=== PATIENT | male | born 1950 | race Caucasian/White ===

== ENCOUNTER → 2018-02-20 | Outpatient (CLI) | payer BC ==
[~2018-02-20] MED LIST: ACHD5005 PO; ATR20T PO; BNZ20T PO; OXYC-471 PO; SILV25CR TOP
--- NOTE | 2018-02-20 08:02 | Diagnostic Imaging Report ---
INDICATION: Hemoptysis. FINDINGS: Overall heart size and pulmonary vascularity are within normal limits. There is mild diffuse airspace disease in the right lung with a lower lobe predominance. Left lung appears generally clear. There is no evidence of pneumothorax or significant pleural fluid. IMPRESSION: Increased density in the right lung is likely due to edema or pneumonitis. No lobar consolidation is identified. Followup study would be of use. Dictated by: Dictated on workstation # [id number]
== END ==
LOC: RAD 07:33
PROVIDERS: ATTEND Otolaryngology Otolaryngology/Facial Plastic Surgery
DX: R91.8 Other nonspecific abnormal finding of lung field (principal); R04.2 Hemoptysis
CPT/HCPCS: 71045

== ENCOUNTER → 2018-02-25 | Outpatient (CLI) | payer BC ==
[~2018-02-25] MED LIST changes: +IOHEXOL 350 MG/ML 100 ML (OMNIPAQUE 350) VIAL IV ONE; +NS 250 ML (IVPB) BAG IV ONE
[2018-02-25 08:04] LABS: CREATININE SERUM 1.2 MG/DL (0.60-1.30)
--- NOTE | 2018-02-25 12:39 | Diagnostic Imaging Report ---
PROCEDURE: CT chest with contrast only. TECHNIQUE: Multiple contiguous axial images were obtained through the chest after administration of intravenous contrast. INDICATION: Hemoptysis. FINDINGS: There are no previous CT chest examinations available for comparison. The plain film examination of the chest performed on 02/20/2018 suggested pneumonia involving the right midlung. On this exam, there is a generalized prominence of the interstitial densities along the periphery of the right midlung and right lung base. This appearance is somewhat atypical for pneumonia. The possibility that this is secondary to pneumonia cannot be entirely excluded. This could also be related to chronic pulmonary disease. It may prove worthwhile to have are short-term (4-6 week) followup CT chest exam for continued evaluation. There are also a few small patchy areas of increased density about the left hilum and in the left lower lobe. Whether these findings are chronic or acute is not certain. The heart itself is within normal limits. Coronary artery calcifications are evident. The aorta is not abnormally dilated and there is no sign of dissection. There is no defect within the pulmonary arteries to indicate a pulmonary embolus. There is a small 1.0 x 1.8 cm low-density nodule in the left hilum. This is probably a borderline enlarged lymph node. There is a similar-appearing similar-sized node in the right hilum. There is no mediastinal adenopathy identified. The thyroid gland where visualized is unremarkable. The sections through the upper abdomen fail to show any sign of an acute abnormality. The bone windows are unremarkable for fracture or for destructive lesion. IMPRESSION: 1. There is a generalized prominence of the interstitial densities along the periphery of the right midlung and right lung base. This finding is somewhat atypical for pneumonia but that possibly should still be considered. This appearance could also be related to chronic pulmonary disease. A 4-[address] chest exam would be recommended for further study. 2. There is no acute cardiopulmonary abnormality noted, otherwise. In particular, there is no sign of a dissection of the aorta or of a pulmonary embolus. There is no lung mass identified either. 3. The small hilar nodes are nonspecific. These may represent reactive nodes. 4. The heart is not enlarged but there is coronary artery disease. Dictated by: Dictated on workstation # [id number]
== END ==
LOC: RAD 07:25
PROVIDERS: ATTEND Otolaryngology Otolaryngology/Facial Plastic Surgery
DX: R91.1 Solitary pulmonary nodule (principal); I25.10 Atherosclerotic heart disease of native coronary artery without angina pectoris
CPT/HCPCS: 36415; 71260; 82565; 84520

== ENCOUNTER → 2018-03-02 | Outpatient (CLI) | payer BC ==
[~2018-03-02] MED LIST changes: -IOHEXOL 350 MG/ML 100 ML (OMNIPAQUE 350) VIAL IV ONE; -NS 250 ML (IVPB) BAG IV ONE
[2018-03-02 12:16] LABS: BASOPHILS % (AUTO) 0 % (0-10); EOSINOPHILS # (AUTO) 0.1 10^3/uL (0.0-0.3); EOSINOPHILS % (AUTO) 1 % (0-10); HEMATOCRIT 46 % (40-54); HEMOGLOBIN 16.5 G/DL (13.3-17.7); LYMPHOCYTES # (AUTO) 1.8 X 10^3 (1.0-4.0); LYMPHOCYTES % (AUTO) 24 % (12-44); MEAN CORPUSCULAR HEMOGLOBIN 34 PG (25-34); MEAN CORPUSCULAR HGB CONC 36 G/DL (32-36); MEAN CORPUSCULAR VOLUME 93 FL (80-99); MEAN PLATELET VOLUME 9.1 FL (7.4-10.4); MONOCYTES # (AUTO) 0.9 X 10^3 (0.0-1.0); MONOCYTES % (AUTO) 12 % (0-12); NEUTROPHILS # (AUTO) 4.6 X 10^3 (1.8-7.8); NEUTROPHILS % (AUTO) 62 % (42-75); PLATELET COUNT 240 10^3/uL (130-400); RED BLOOD COUNT 4.93 10^6/uL (4.35-5.85); RED CELL DISTRIBUTION WIDTH 13.8 % (10.0-14.5); WHITE BLOOD COUNT 7.5 10^3/uL (4.3-11.0)
[2018-03-02 12:27] LABS: INR 1.1 (0.8-1.4); PROTHROMBIN TIME PATIENT 14.4 SEC (12.2-14.7)
== END ==
LOC: LAB 11:50
PROVIDERS: ATTEND Nurse Practitioner Family
DX: R04.2 Hemoptysis (principal); R06.00 Dyspnea, unspecified
CPT/HCPCS: 36415; 36600; 85025; 85610

== ENCOUNTER → 2018-03-03 | Outpatient (CLI) | payer BC | LOC: PULM 10:19 | PROVIDERS: ATTEND Nurse Practitioner Family | DX: R06.00 Dyspnea, unspecified (principal) ==

== ENCOUNTER → 2018-03-11 | Outpatient (CLI) | payer BC ==
[~2018-03-11] MED LIST changes: +RT-ALBUTEROL SULF 2.5 MG/3 ML PRE-MIX VIAL INH ONE; +RT-ALBUTEROL SULF 2.5 MG/3 ML PRE-MIX VIAL ONE
== END ==
LOC: RT 09:16
PROVIDERS: ATTEND Nurse Practitioner Family
DX: R06.00 Dyspnea, unspecified (principal); F17.200 Nicotine dependence, unspecified, uncomplicated
CPT/HCPCS: 94060; 94726; 94729

== ENCOUNTER → 2018-05-04 | Outpatient (CLI) | payer BC ==
[~2018-05-04] MED LIST changes: +ATOR20TA66 PO; +BENA20TA7 PO; +CETI10TA17 PO; +FLUT16SP22 NSEACH; +FLUT1BLS3 IH; +IOHEXOL 350 MG/ML 100 ML (OMNIPAQUE 350) VIAL IV ONE; +MONT10TA24 PO; +NS 250 ML (IVPB) BAG IV ONE; +OMEP40CA36 PO; +RT-ALBUINH IH; -RT-ALBUTEROL SULF 2.5 MG/3 ML PRE-MIX VIAL INH ONE; -RT-ALBUTEROL SULF 2.5 MG/3 ML PRE-MIX VIAL ONE
[2018-05-04 08:21] LABS: CREATININE SERUM 1.22 MG/DL (0.60-1.30)
--- NOTE | 2018-05-04 10:11 | Diagnostic Imaging Report ---
PROCEDURE: CT chest with contrast only. TECHNIQUE: Multiple contiguous axial images were obtained through the chest after administration of intravenous contrast. INDICATION: Peripheral right lung opacities. Exam performed is compared with study of 02/25/2018. There is progressive right-sided subpleural peripheral cyst formation, groundglass density and linear interstitial opacities suspicious for progressive pulmonary fibrosis. Some paraseptal cyst formation involving the right apex are unchanged. There are progressive tree in bud nodular opacities in the patient's left upper lobe and likely mild subpleural partial atelectasis in the left lower lobe at the posterior sulcus. No effusion or pneumothorax. No consolidating pneumonia. Left hilar lymphadenopathy shows a mild increase, the largest node measuring today 2.1 x 1.3 cm previously 1.8 x 1.1 cm. Few shotty subcentimeter paratracheal and pericarinal nodes stable and presumed incidental. No suspicious nodularity in the right hilum. No effusion or pneumothorax. The visualized upper abdomen revealing no acute finding. Impression: Increasing peripheral right upper middle and lower lobe lung disease with increased cyst formation, groundglass density and linear interstitial opacities, progressive interstitial fibrosis cannot be excluded. Increased tree in bud nodularity in the suprahilar in the left upper lobe with adjacent increased mild hilar adenopathy. This may reflect an inflammatory component superimposed. No consolidating lobar pneumonia. No thoracic effusion or abscess. No acute vascular abnormality. Dictated by: Dictated on workstation # [id number]
== END ==
LOC: RAD 07:49
PROVIDERS: ATTEND Nurse Practitioner Family
DX: J44.9 Chronic obstructive pulmonary disease, unspecified (principal)
CPT/HCPCS: 36415; 71260; 82565; 84520

== ENCOUNTER 2018-05-12 10:30 | Outpatient (CLI) | payer BC ==
[~2018-05-12] VITALS: Ht 188 cm; Wt 113.4 kg
[~2018-05-12 10:30] MED LIST changes: -ATOR20TA66 PO; -BENA20TA7 PO; -CETI10TA17 PO; -FLUT16SP22 NSEACH; -FLUT1BLS3 IH; -MONT10TA24 PO; -OMEP40CA36 PO; -RT-ALBUINH IH
[2018-05-12] MEDS ORDERED: BENA20TA7 PO (10:37)
[2018-05-12] MEDS ORDERED: ATOR20TA66 PO (10:37)
[2018-05-12] MEDS ORDERED: CETI10TA17 PO (10:37)
[2018-05-12] MEDS ORDERED: FLUT16SP22 NSEACH (10:37)
[2018-05-12] MEDS ORDERED: FLUT1BLS3 IH (10:37)
[2018-05-12] MEDS ORDERED: RT-ALBUINH IH (10:37)
[2018-05-12] MEDS ORDERED: OMEP40CA36 PO (10:37)
[2018-05-12] MEDS ORDERED: MONT10TA24 PO (10:37)
== END 2018-05-12 10:44 | disposition home or self-care (01) ==
LOC: PREOP 10:30
PROVIDERS: ATTEND Internal Medicine Critical Care Medicine
DX: Z01.818 Encounter for other preprocedural examination (principal)

== ENCOUNTER → 2018-05-12 | Outpatient (CLI) | payer BC ==
[~2018-05-12] MED LIST changes: -IOHEXOL 350 MG/ML 100 ML (OMNIPAQUE 350) VIAL IV ONE; -NS 250 ML (IVPB) BAG IV ONE
[2018-05-12 11:23] LABS: BASOPHILS % (AUTO) 0 % (0-10); EOSINOPHILS # (AUTO) 0.1 10^3/uL (0.0-0.3); EOSINOPHILS % (AUTO) 1 % (0-10); HEMATOCRIT 43 % (40-54); HEMOGLOBIN 15.5 G/DL (13.3-17.7); LYMPHOCYTES # (AUTO) 2.1 X 10^3 (1.0-4.0); LYMPHOCYTES % (AUTO) 33 % (12-44); MEAN CORPUSCULAR HEMOGLOBIN 34 PG (25-34); MEAN CORPUSCULAR HGB CONC 36 G/DL (32-36); MEAN CORPUSCULAR VOLUME 93 FL (80-99); MEAN PLATELET VOLUME 9.4 FL (7.4-10.4); MONOCYTES # (AUTO) 0.5 X 10^3 (0.0-1.0); MONOCYTES % (AUTO) 8 % (0-12); NEUTROPHILS # (AUTO) 3.6 X 10^3 (1.8-7.8); NEUTROPHILS % (AUTO) 57 % (42-75); PLATELET COUNT 198 10^3/uL (130-400); RED BLOOD COUNT 4.57 10^6/uL (4.35-5.85); RED CELL DISTRIBUTION WIDTH 13.6 % (10.0-14.5); WHITE BLOOD COUNT 6.3 10^3/uL (4.3-11.0)
[2018-05-12 11:46] LABS: ALBUMIN 4.3 GM/DL (3.2-4.5); BILIRUBIN,TOTAL 0.7 MG/DL (0.1-1.0); CALCIUM 9.7 MG/DL (8.5-10.1); CREATININE SERUM 1.28 MG/DL (0.60-1.30); POTASSIUM 4.5 MMOL/L (3.6-5.0)
== END ==
LOC: CARD 11:00
PROVIDERS: ATTEND Nurse Practitioner Family
DX: J84.10 Pulmonary fibrosis, unspecified (principal); R04.2 Hemoptysis; F17.200 Nicotine dependence, unspecified, uncomplicated
CPT/HCPCS: 36415; 80053; 85025; 93306

== ENCOUNTER 2018-05-14 06:58 | Day surgery (SDC) | payer BC ==
[~2018-05-14] VITALS: Ht 188 cm; Wt 113.4 kg
[~2018-05-14 06:58] MED LIST changes: +ATOR20TA66 PO; +BENA20TA7 PO; +CETI10TA17 PO; +FLUT16SP22 NSEACH; +FLUT1BLS3 IH; +MONT10TA24 PO; +OMEP40CA36 PO; +RT-ALBUINH IH
[2018-05-14] MEDS ORDERED: LIDOCAINE PF 1% 2 ML AMP INJ ONE (06:59)
[2018-05-14] MEDS ORDERED: LIDOCAINE 4% INJ (XYLOCAINE) 5ML AMP INJ ONE ×2 (06:59→07:45)
[2018-05-14] MEDS ORDERED: LIDOCAINE JELLY 2% (XYLOCAINE) 30 ML TUBE TOP ONE (06:59)
[2018-05-14] MEDS ORDERED: NS IV 500 ML 500 ML IV PRN (07:10)
[2018-05-14] MEDS ORDERED: NS IV 500 ML 500 ML ONE (07:12)
[2018-05-14 07:29] VITALS: BP 127/71
[2018-05-14] MEDS ORDERED: fentaNYL INJECTION 100 MCG/2 ML AMP ONE ×2 (07:32)
[2018-05-14] MEDS ORDERED: MIDAZOLAM 2 MG/2 ML (VERSED) VIAL ONE ×4 (07:33)
--- NOTE | 2018-05-14 07:45 | Pre-Op Note & Conscious Sedat ---
Pre-Operative Progress Note H&P Reviewed The H&P was reviewed, patient examined and no changes noted. Date H&P Reviewed: May 14, 2018 Time H&P Reviewed: 07:45 Conscious Sedation Pre-Proced Time Reviewed: 07:44 ASA Class: 3 Airway Mallampati Classification: ([place] appropriate class) I. II. III, IV Lungs Heart ASA score ASA 1: a normal healthy patient ASA 2: a patient with a mild systemic disease (mid diabetes, controlled hypertension, obesity ASA 3: a patient with a severe systemic disease that limits activity (angina , COPD, prior Myocardial infarction) ASA 4: a patient with an incapacitating disease that is a constant threat to life (CHF, renal failure) ASA 5: a moribund patient not expected to survive 24 hrs. (ruptured aneurysm) ASA 6: a declared brain patient whose organs are being harvested. For emergent operations, add the letter E after the classification Grade 4 Sedation Plan: Analgesia, Amnesia, Plan communicated to team members, Discussed options with patient/fam, Discussed risks with patient/fam Note The patient is an appropriate candidate to undergo the planned procedure, sedation, and anesthesia. The patient immediately re-assessed prior to indication. IRISH DIOP DO May 14, 2018 07:45
--- NOTE | 2018-05-14 07:45 | Progress Note-Pre Operative ---
Pre-Operative Progress Note H&P Reviewed The H&P was reviewed, patient examined and no changes noted. Time Seen by Provider: 07:44 Date H&P Reviewed: May 14, 2018 Time H&P Reviewed: 07:44 Pre-Operative Diagnosis: hemoptysis IRISH DIOP DO May 14, 2018 07:45
[2018-05-14] MEDS: MIDAZOLAM 2 MG/2 ML (VERSED) VIAL IVP PRN ×7 (07:57→08:31)
[2018-05-14] MEDS: fentaNYL INJECTION 100 MCG/2 ML AMP IVP PRN ×8 (07:58→08:25)
[2018-05-14 09:10] VITALS: BP 144/59
--- NOTE | 2018-05-14 09:33 | Diagnostic Imaging Report ---
INDICATION: Post bronchoscopy Frontal chest obtained at 0914 a.m. and compared to 02/20/18. Heart is mildly enlarged. There is some vague infiltrate in the right perihilar region. There is no pneumothorax or pleural fluid. IMPRESSION: Cardiomegaly. Vague infiltrate in the right perihilar region. No pneumothorax following bronchoscopy. Dictated by: Dictated on workstation # [id number]
[2018-05-14 09:40] VITALS: BP 129/71
[2018-05-14 11:15] VITALS: BP 129/71
--- NOTE | 2018-05-14 11:15 | Diagnostic Imaging Report ---
INDICATION: Bronchoscopy. FINDINGS: Intraoperative fluoroscopy used during bronchoscopy by Dr. Ram. 53 seconds of fluoroscopy time was used. Single view demonstrates endoscope over the left hilar region. IMPRESSION: Intraoperative fluoroscopy used during bronchoscopy per Dr. Ram. 53 seconds of fluoroscopy time was used. Dictated by: Dictated on workstation # [id number]
--- NOTE | 2018-05-25 13:16 | Pulmonary Procedures ---
Pulmonary Procedures Date of Procedure Date of Service: May 14, 2018 Bronch Bronchoscopy with bronchoalveolar lavage (BAL), transbronchial forcep bx, transbronchial washes and, brushes. Preop DX hemoptysis Postop DX: RONNIE endobronchial mass. Pictures taken Complications: none After informed consent obtained and formal time out pt was sedated using Fentanyl and Versed. Bronchoscope was advanced through the nare and vocal cords. 1% lidocaine was used to anesthetize vocal cords, epiglottis, jerry, and left/right main stem bronchus. An anatomical tour was undertaken down to the segmental bronchi bilaterally. RONNIE bronchus shows an endobronchial mass. Several biopsies were taken including forcep bx, brushes, washes, and BAL were obtained. Pt tolerated procedure well. No complications noted. Stat CXR is pending. IRISH DIOP DO May 25, 2018 13:16
== END 2018-05-14 11:15 | disposition home or self-care (01) ==
LOC: ENDO 06:58
PROVIDERS: ATTEND Internal Medicine Critical Care Medicine
DX: C34.12 Malignant neoplasm of upper lobe, left bronchus or lung (principal); R04.2 Hemoptysis; R09.02 Hypoxemia; G47.30 Sleep apnea, unspecified; J84.10 Pulmonary fibrosis, unspecified; F17.210 Nicotine dependence, cigarettes, uncomplicated
CPT/HCPCS: 71045; 87070; 87101; 87116; 87205; 94640

== ENCOUNTER → 2018-05-19 | Outpatient (CLI) | payer BC ==
--- NOTE | 2018-05-19 17:02 | Diagnostic Imaging Report ---
INDICATION: Squamous cell lung carcinoma. Study is performed for initial staging. TECHNIQUE: Patient serum blood glucose level at time of injection was 91 mg/dL. The patient was administered 11.8 mCi F-18 FDG intravenously in the right antecubital location and PET imaging was performed from the top of the skull to the mid thighs. Noncontrast CT was also performed for attenuation correction and anatomic correlation. COMPARISON: No prior PET studies available for comparison. Correlation is made with CT chest from 05/04/2018. FINDINGS: Symmetric activity throughout the brain is identified. Soft tissues of the neck are unremarkable. There is an intense focus of hypermetabolism in the left hilum, corresponding with the area of soft tissue density on recent CT. The SUV max is approximately 17. The right hilum and mediastinum are unremarkable. No parenchymal abnormality is seen. Imaging through the abdomen and pelvis demonstrates physiologic activity within the liver and spleen as well as GI and tracts. No other abnormal foci are identified. IMPRESSION: Intense hypermetabolism involving a mass in the left hilum consistent with patient's known primary lung carcinoma. No other sites of hypermetabolism are identified. Dictated by: Dictated on workstation # [id number]
== END ==
LOC: RAD 10:46
PROVIDERS: ATTEND Nurse Practitioner Family
DX: C34.92 Malignant neoplasm of unspecified part of left bronchus or lung (principal); R59.0 Localized enlarged lymph nodes

== ENCOUNTER 2018-07-08 05:51 | Outpatient (CLI) | payer BC ==
[~2018-07-08] VITALS: Ht 188 cm; Wt 120.2 kg
== END 2018-07-08 10:40 | disposition home or self-care (01) ==
LOC: PREOP 05:51
PROVIDERS: ATTEND Surgery
DX: Z01.818 Encounter for other preprocedural examination (principal)

== ENCOUNTER 2018-07-10 09:00 | Day surgery (SDC) | payer BC ==
[~2018-07-10] VITALS: Ht 188 cm; Wt 120.2 kg
[2018-07-10] MEDS ORDERED: ceFAZolin 2 GM IV Premixed 50 ML IV ONE ×2 (09:30→09:45)
[2018-07-10] MEDS ORDERED: BUP/EPI 0.5% 1:200,000 (SENSORCAINE) 30 ML VIAL ONE (09:40)
[2018-07-10] MEDS ORDERED: 0.9% SODIUM CHLORIDE PF INJ 20 ML VIAL ONE ×2 (09:41)
[2018-07-10] MEDS ORDERED: HEParin (CENTRAL IV FLUSH) 500 UNIT/5 ML SYR ONE (09:41)
[2018-07-10] MEDS ORDERED: LACTATED RINGERS 1,000 ML IV PRN (09:43)
--- NOTE | 2018-07-10 09:48 | Progress Note-Pre Operative ---
Pre-Operative Progress Note H&P Reviewed The H&P was reviewed, patient examined and no changes noted. Date Seen by Provider: Jul 10, 2018 Time Seen by Provider: 09:47 Date H&P Reviewed: Jul 10, 2018 Time H&P Reviewed: 09:47 Pre-Operative Diagnosis: squamous cell carcinoma left lung FILEMON ALVARADO MD Jul 10, 2018 09:47
--- NOTE | 2018-07-10 09:49 | History & Physicial ---
History of Present Illness History of Present Illness Reason for visit/HPI to undergo an Hffsqw-b-Aank placement, to facilitate systemic chemotherapy regarding squamous cell carcinoma left lung. Date of Admission 07/10/18 Date Seen by a Provider: Jul 10, 2018 Time Seen by a Provider: 09:48 I consulted on this patient on 07/10/18 09:48 Attending Physician Filemon Alvarado MD Admitting Physician Chris Mcduffie MD Consult Allergies and Home Medications Allergies Coded Allergies: No Known Drug Allergies (Unverified , 08/14/16) Home Medications Albuterol Sulfate 1 Puff Puff, 2 PUFF IH Q4H PRN for WHEEZING, (Reported) 1 PUFF = 90 MCG Atorvastatin Calcium 20 Mg Tablet, 20 MG PO DAILY, (Reported) Benazepril HCl 20 Mg Tablet, 20 MG PO DAILY, (Reported) Cetirizine HCl 10 Mg Tablet, 10 MG PO DAILY, (Reported) Fluticasone Propionate 16 Gm [place].susp, 1 SPRAY NSEACH DAILY, (Reported) Fluticasone/Umeclidin/Vilanter 1 Each Blst.w.dev, 1 PUFF IH DAILY, (Reported) Montelukast Sodium 10 Mg Tablet, 10 MG PO HS, (Reported) Omeprazole 40 Mg Capsule.dr, 40 MG PO DAILY, (Reported) Patient Home Medication List Home Medication List Reviewed: Yes Past Jpabwxe-Ciknow-Bjbtjp Hx Patient Social History Employed/Student: retired Alcohol Beverage of Choice: Beer Former Smoker, Quit: Jul 01, 2018 Type Used: Cigarettes Recent Hopitalizations: No Immunizations Up To Date Tetanus Booster (TDap): More than 5yrs Date of Pneumonia Vaccine: Jun 22, 2013 Date of Influenza Vaccine: Jul 29, 2016 Seasonal Allergies Seasonal Allergies: No Respiratory Yes Currently Using CPAP: Yes Cardiovascular Yes High Cholesterol, Hypertension Reproductive System Hx Reproductive Disorders: No Sexually Transmitted Disease: No HIV/AIDS: No Gastrointestinal Yes Gastroesophageal Reflux, Diverticulosis HEENT Loss of Vision: Bilateral Hearing Impairment: Denies Cancer Yes Lung Blood Transfusions Adverse Reaction to a Blood Tr: No (N/A) Review of Systems Constitutional: no symptoms reported EENTM: no symptoms reported Respiratory: see HPI, cough Cardiovascular: no symptoms reported Gastrointestinal: no symptoms reported Genitourinary: no symptoms reported Musculoskeletal: joint pain Skin: no symptoms reported Psychiatric/Neurological: No Symptoms Reported Physical Exam Vital Signs Capillary Refill : Height, Weight, BMI Height: 6'2.00" Weight: 265lbs. 0.0oz. [id number]; 34.0 BMI Method:Stated General Appearance: No Apparent Distress Neck: Normal Inspection Cardiovascular: Regular Rate, Rhythm Neurologic/Psychiatric: Alert, Oriented x3 Skin: Warm/Dry Assessment/Plan Assessment and Plan gentleman with squamous cell carcinoma of the left lung. 4 Bgzfwi-d-Jblu placement. Details reviewed thoroughly. Admission Diagnosis Admission Status: Other (Outpt Proc) FILEMON ALVARADO MD Jul 10, 2018 09:49
[2018-07-10 09:50] VITALS: BP 158/91
[2018-07-10] MEDS ORDERED: proPOfol 200 MG/20 ML (DIPRIVAN) VIAL IV ONE (10:12)
[2018-07-10] MEDS ORDERED: DEXAMETHASONE 10 MG/ML (DECADRON) 1 ML VIAL ONE (10:12)
[2018-07-10] MEDS ORDERED: fentaNYL INJECTION 100 MCG/2 ML AMP ONE (10:12)
[2018-07-10] MEDS ORDERED: MIDAZOLAM 2 MG/2 ML (VERSED) VIAL ONE (10:12)
[2018-07-10] MEDS ORDERED: LIDOCAINE PF 2% 2 ML (XYLOCAINE) VIAL ONE (10:12)
[2018-07-10] MEDS ORDERED: ONDANSETRON 4 MG/2 ML (SDV) Z0FRAN ONE (10:12)
[2018-07-10] MEDS ORDERED: SEVOFLURANE (ULTANE) 15 ML INHAL SOLN ONE ×3 (10:23→11:17)
[2018-07-10] MEDS ORDERED: GLYCOPYRROLATE 0.2 MG/ML (ROBINUL) 2 ML VIAL ONE (11:10)
--- NOTE | 2018-07-10 11:26 | Operative Report ---
Operative Report Date of Procedure/Surgery Jul 10, 2018 Surgeon (s) FILEMON ALVARADO MD Transitional Nurse (s): N/A Post-Operative Diagnosis Same Procedure Performed Xcfbta-e-Utrz placement Description of Procedure Anesthesia Type: General Estimated blood loss (mL): Minimal Specimen(s) collected/removed None Description of the Procedure Indication for the procedure: This gentleman is due to receive systemic chemotherapy to manage inoperable squamous cell carcinoma of the left lung. To facilitate this, it was felt reasonable to place an Atjlho-j-Bdre. Informed consent was obtained after reviewing the details of the procedure and complications of hematoma, bacteremia and malfunction of the catheter requiring replacement. Description of the procedure: He was placed supine on the operative table and general anesthesia induced. 2 g of Ancef were administered intravenously as prophylaxis against wound infection; his neck and upper chest were prepared and draped in the usual sterile manner. Right internal jugular vein was localized using a 10 MHz ultrasound probe and a floppy guidewire introduced into the heart , under fluoroscopy. A subcutaneous pocket was created over the infraclavicular fossa and the Be catheter brought into the neck, in a retrograde fashion. It was then advanced to the heart, under fluoroscopy, using the peel-away sheath. The catheter was then pulled back to the superior vena cava, under fluoroscopy and connected to the Tzvxob-q-Bczb, that had been primed with heparinized saline. I was able to aspirate and flush the system without difficulty. The port was then secured to the pectoralis tissue using 2- 0 Prolene sutures Incision was then closed using 3-0 Vicryl for the subcutaneous tissue and 4-0 Vicryl for skin, in a subcuticular fashion. Preemptive analgesia was established using 0.5 percent Marcaine with epinephrine He tolerated the procedure well, was extubated in the operating room and taken down in a stable condition. Findings of the Procedure C operative Allergies and Home Medications Allergies Coded Allergies: No Known Drug Allergies (Unverified , 08/14/16) Home Medications Albuterol Sulfate 1 Puff Puff, 2 PUFF IH Q4H PRN for WHEEZING, (Reported) 1 PUFF = 90 MCG Atorvastatin Calcium 20 Mg Tablet, 20 MG PO DAILY, (Reported) Benazepril HCl 20 Mg Tablet, 20 MG PO DAILY, (Reported) Cetirizine HCl 10 Mg Tablet, 10 MG PO DAILY, (Reported) Fluticasone Propionate 16 Gm [place].susp, 1 SPRAY NSEACH DAILY, (Reported) Fluticasone/Umeclidin/Vilanter 1 Each Blst.w.dev, 1 PUFF IH DAILY, (Reported) Montelukast Sodium 10 Mg Tablet, 10 MG PO HS, (Reported) Omeprazole 40 Mg Capsule.dr, 40 MG PO DAILY, (Reported) Patient Home Medication List Home Medication List Reviewed: Yes FILEMON ALVARADO MD Jul 10, 2018 11:26
[2018-07-10] MEDS ORDERED: ACHD5005 PO (11:27)
--- NOTE | 2018-07-10 11:28 | Discharge Inst-Simple/Standard ---
Discharge Inst-Standard Discharge Medications New, Converted or Re-Newed RX: RX on Chart Patient Instructions/Follow Up Plan of Care/Instructions/FU: Band-Aids off in 48 hours. May use the port. Activity as Tolerated: Yes Discharge Diet: No Restrictions FILEMON ALVARADO MD Jul 10, 2018 11:28
[2018-07-10] MEDS ORDERED: ONDANSETRON 4 MG/2 ML (SDV) Z0FRAN IVP PRN (11:30)
[2018-07-10] MEDS ORDERED: fentaNYL INJECTION 100 MCG/2 ML AMP IVP ONE (11:30)
--- NOTE | 2018-07-10 12:01 | Anesthesia-General Post-Op ---
General Patient Condition Mental Status/LOC: Same as Preop Cardiovascular: Satisfactory Nausea/Vomiting: Absent Respiratory: Satisfactory Pain: Controlled Complications: Absent Post Op Complications Complications None Follow Up Care/Instructions Patient Instructions None needed. Anesthesia/Patient Condition Patient Condition Patient is doing well, no complaints, stable vital signs, no apparent adverse anesthesia problems. No complications reported per nursing. MCKINLEY SOTELO CRNA Jul 10, 2018 12:01
[2018-07-10 12:05] VITALS: BP 159/88
[2018-07-10 12:35] VITALS: BP 141/71
--- NOTE | 2018-07-10 12:48 | Diagnostic Imaging Report ---
INDICATION: Undergoing line placement. TECHNIQUE: Single intraprocedural images right upper chest and neck CORRELATION STUDY: None FINDINGS: Fluoroscopy utilized for placement of a right side central line. A single intraoperative view demonstrates a right IJ Hqrycf-s-Hngs catheter to be present. The tip is not well-defined but appears to likely be over the low paramediastinal region. Fluoroscopy time: One minute 9 seconds IMPRESSION: 1. Fluoroscopy utilized for placement of a right IJ central line. If further assessment is desired, postprocedure chest radiograph recommended. Dictated by: Dictated on workstation # [id number]
[2018-07-10 13:05] VITALS: BP 150/81
== END 2018-07-10 13:05 | disposition home or self-care (01) ==
LOC: SDC 09:00
PROVIDERS: ATTEND Surgery
DX: C34.12 Malignant neoplasm of upper lobe, left bronchus or lung (principal); J44.9 Chronic obstructive pulmonary disease, unspecified; F17.210 Nicotine dependence, cigarettes, uncomplicated; I10 Essential (primary) hypertension; E78.00 Pure hypercholesterolemia, unspecified; K21.9 Gastro-esophageal reflux disease without esophagitis; G47.33 Obstructive sleep apnea (adult) (pediatric); Z79.899 Other long term (current) drug therapy
CPT/HCPCS: 87081

== ENCOUNTER 2018-07-17 09:23 | Outpatient (RCR) | payer BC ==
[2018-07-08 11:24] LABS: BASOPHILS % (AUTO) 0 % (0-10); EOSINOPHILS % (AUTO) 0 % (0-10); HEMATOCRIT 44 % (40-54); HEMOGLOBIN 15.6 G/DL (13.3-17.7); LYMPHOCYTES # (AUTO) 0.5 X 10^3 (1.0-4.0); LYMPHOCYTES % (AUTO) 8 % (12-44); MEAN CORPUSCULAR HEMOGLOBIN 33 PG (25-34); MEAN CORPUSCULAR HGB CONC 36 G/DL (32-36); MEAN CORPUSCULAR VOLUME 94 FL (80-99); MEAN PLATELET VOLUME 9.1 FL (7.4-10.4); MONOCYTES # (AUTO) 0.1 X 10^3 (0.0-1.0); MONOCYTES % (AUTO) 1 % (0-12); NEUTROPHILS # (AUTO) 5.9 X 10^3 (1.8-7.8); NEUTROPHILS % (AUTO) 91 % (42-75); PLATELET COUNT 237 10^3/uL (130-400); RED BLOOD COUNT 4.69 10^6/uL (4.35-5.85); RED CELL DISTRIBUTION WIDTH 13.3 % (10.0-14.5); WHITE BLOOD COUNT 6.5 10^3/uL (4.3-11.0)
[2018-07-08 11:49] LABS: ALBUMIN 4.2 GM/DL (3.2-4.5); BILIRUBIN,TOTAL 0.7 MG/DL (0.1-1.0); CALCIUM 10.1 MG/DL (8.5-10.1); CREATININE SERUM 1.34 MG/DL (0.60-1.30); POTASSIUM 4.4 MMOL/L (3.6-5.0); TOTAL PROTEIN 7.6 GM/DL (6.4-8.2)
[2018-07-14 09:56] LABS: BASOPHILS % (AUTO) 0 % (0-10); EOSINOPHILS # (AUTO) 0.1 10^3/uL (0.0-0.3); EOSINOPHILS % (AUTO) 1 % (0-10); HEMATOCRIT 42 % (40-54); HEMOGLOBIN 14.5 G/DL (13.3-17.7); LYMPHOCYTES # (AUTO) 1.4 X 10^3 (1.0-4.0); LYMPHOCYTES % (AUTO) 25 % (12-44); MEAN CORPUSCULAR HEMOGLOBIN 33 PG (25-34); MEAN CORPUSCULAR HGB CONC 35 G/DL (32-36); MEAN CORPUSCULAR VOLUME 95 FL (80-99); MEAN PLATELET VOLUME 9.2 FL (7.4-10.4); MONOCYTES # (AUTO) 0.4 X 10^3 (0.0-1.0); MONOCYTES % (AUTO) 7 % (0-12); NEUTROPHILS # (AUTO) 3.9 X 10^3 (1.8-7.8); NEUTROPHILS % (AUTO) 67 % (42-75); PLATELET COUNT 204 10^3/uL (130-400); RED BLOOD COUNT 4.36 10^6/uL (4.35-5.85); WHITE BLOOD COUNT 5.8 10^3/uL (4.3-11.0)
[2018-07-14 10:15] LABS: BUN/CREATININE RATIO 16; CALCIUM 9.6 MG/DL (8.5-10.1); CARBON DIOXIDE 25 MMOL/L (21-32); CHLORIDE 107 MMOL/L (98-107); GFR ESTIMATED > 60; GLUCOSE 105 MG/DL (70-105); POTASSIUM 4.2 MMOL/L (3.6-5.0); SODIUM 142 MMOL/L (135-145)
[~2018-07-17] VITALS: Ht 186.7 cm; Wt 120.2 kg
[~2018-07-17 09:23] MED LIST changes: +CARBOPLATIN 170 MG in D5W 50 ML IV(CANCER CTR) 50 ML IV SCH; +FAMOTIDINE 20MG/2ML IV (CANCER CTR) IV SCH; +NS IV 1000 ML (CANCER CTR) IV SCH; +PACLITAXEL 90 MG in NORMAL SALINE (CANCER CENTER) 250 ML IV SCH; +PALONOSETRON HCL 0.25 MG, DEXAMETHASONE INJECTION 10 MG in NS (IVPB) CANCER CENTER 50 ML IV SCH; +PALONOSETRON HCL 0.25 MG, DEXAMETHASONE INJECTION 20 MG in NS (IVPB) CANCER CENTER 50 ML IV ONE; +diphenhydrAMINE 25 MG TAB (BENADRYL) CANCER CENTER PO SCH; +diphenhydrAMINE 50 MG/ML INJ (CANCER CENTER) IV PRN
[2018-07-20 09:57] LABS: BASOPHILS % (AUTO) 0 % (0-10); EOSINOPHILS % (AUTO) 0 % (0-10); HEMATOCRIT 42 % (40-54); HEMOGLOBIN 14.7 G/DL (13.3-17.7); LYMPHOCYTES # (AUTO) 0.3 X 10^3 (1.0-4.0); LYMPHOCYTES % (AUTO) 8 % (12-44); MEAN CORPUSCULAR HEMOGLOBIN 34 PG (25-34); MEAN CORPUSCULAR HGB CONC 35 G/DL (32-36); MEAN CORPUSCULAR VOLUME 96 FL (80-99); MEAN PLATELET VOLUME 9.3 FL (7.4-10.4); MONOCYTES % (AUTO) 1 % (0-12); NEUTROPHILS # (AUTO) 3.2 X 10^3 (1.8-7.8); NEUTROPHILS % (AUTO) 91 % (42-75); PLATELET COUNT 195 10^3/uL (130-400); RED BLOOD COUNT 4.34 10^6/uL (4.35-5.85); RED CELL DISTRIBUTION WIDTH 13.4 % (10.0-14.5); WHITE BLOOD COUNT 3.6 10^3/uL (4.3-11.0)
[2018-07-20 10:21] LABS: BUN/CREATININE RATIO 16; CALCIUM 9.9 MG/DL (8.5-10.1); CARBON DIOXIDE 21 MMOL/L (21-32); CHLORIDE 104 MMOL/L (98-107); CREATININE SERUM 1.15 MG/DL (0.60-1.30); GFR ESTIMATED > 60; GLUCOSE 131 MG/DL (70-105); MAGNESIUM 2.1 MG/DL (1.8-2.4); POTASSIUM 4.6 MMOL/L (3.6-5.0); SODIUM 136 MMOL/L (135-145)
== END 2018-07-20 09:16 | disposition home or self-care (01) ==
LOC: ONC 09:23
PROVIDERS: ATTEND Internal Medicine Hematology & Oncology
DX: Z51.0 Encounter for antineoplastic radiation therapy (principal); Z51.11 Encounter for antineoplastic chemotherapy; C34.12 Malignant neoplasm of upper lobe, left bronchus or lung; I10 Essential (primary) hypertension; K21.9 Gastro-esophageal reflux disease without esophagitis; Z79.899 Other long term (current) drug therapy
CPT/HCPCS: 36415; 36591; 77290; 77295; 77300; 77334; 77336; 77417; 77470; 80048; 80053; 83735; 85025; 96375; 96413; 96417; 99204; 99213; 99214

== ENCOUNTER → 2018-09-28 | Outpatient (CLI) | payer BC ==
[~2018-09-28] MED LIST changes: -CARBOPLATIN 170 MG in D5W 50 ML IV(CANCER CTR) 50 ML IV SCH; -FAMOTIDINE 20MG/2ML IV (CANCER CTR) IV SCH; +IOHEXOL 350 MG/ML 100 ML (OMNIPAQUE 350) VIAL IV ONE; +NS 250 ML (IVPB) BAG IV ONE; -NS IV 1000 ML (CANCER CTR) IV SCH; -PACLITAXEL 90 MG in NORMAL SALINE (CANCER CENTER) 250 ML IV SCH; -PALONOSETRON HCL 0.25 MG, DEXAMETHASONE INJECTION 10 MG in NS (IVPB) CANCER CENTER 50 ML IV SCH; -PALONOSETRON HCL 0.25 MG, DEXAMETHASONE INJECTION 20 MG in NS (IVPB) CANCER CENTER 50 ML IV ONE; +RECEIVED CONTRAST (Hold Metformin) IV SCH; -diphenhydrAMINE 25 MG TAB (BENADRYL) CANCER CENTER PO SCH; -diphenhydrAMINE 50 MG/ML INJ (CANCER CENTER) IV PRN
--- NOTE | 2018-09-28 16:13 | Diagnostic Imaging Report ---
EXAMINATION: CT of the neck and chest with contrast. INDICATION: Squamous cell carcinoma of the lung. FINDINGS: Contiguous axial sections were taken from the midportion of the skull to the diaphragm following administration of intravenous contrast. Sagittal and coronal reconstructed images were also performed. The PET/CT exam performed on 05/19/2018 noted a focal area of intense hypermetabolism involving the left perihilar region. On this exam, there is no clear evidence for a mass in this area. The PET/CT exam also revealed a small 7 mm nodular density in the left upper lung. This did not appear to be extremely hypermetabolic. That finding is again evident on this study and does not appear to have changed significantly in size (image #20 of 81). No other parenchymal lung mass is identified. There are groundglass densities along the anterior aspects of each midlung and along the periphery of the right midlung and right lung base. The densities in the right lung base are similar to the previous PET/CT exam but the densities along the anterior aspect of each midlung have developed since the prior study. These could be related to mild pneumonia/atelectasis. There is no pleural effusion identified. There is no mediastinal or hilar adenopathy. The aorta is not abnormally dilated. There is no defect within the pulmonary arteries to indicate a pulmonary embolus. The heart size is within normal limits. The images through the neck failed to show any sign of a mass or adenopathy. The parotid and submandibular glands appear symmetrical. The thyroid gland is not enlarged and homogeneous. The intracranial contents, where visualized are unremarkable. The bone windows show no sign of a fracture or of a destructive lesion. There has been a prior fusion of the lower cervical spine. The sections to the upper abdomen are unremarkable for an acute abnormality. IMPRESSION: 1. The hypermetabolic mass in the left hilum seen on the previous exam is less than conspicuous on this study. 2. The small nodular density in the left upper lobe seen previously appears stable. There is no new parenchymal lung mass identified. 3. The groundglass densities along the anterior aspect of the each midlung that have developed since the prior study and could be related to mild acute pneumonia/atelectasis. 4. There is no acute cardiopulmonary abnormality noted otherwise. 5. There is no mass or adenopathy involving the neck. Dictated by: Dictated on workstation # [id number]
== END ==
LOC: RAD 10:12
PROVIDERS: ATTEND Nurse Practitioner Adult Health
DX: C34.12 Malignant neoplasm of upper lobe, left bronchus or lung (principal)
CPT/HCPCS: 70491; 71260

== ENCOUNTER 2018-10-06 13:54 | Outpatient (RCR) | payer BC ==
[2018-07-27 09:37] LABS: BASOPHILS % (AUTO) 0 % (0-10); EOSINOPHILS % (AUTO) 1 % (0-10); HEMATOCRIT 39 % (40-54); HEMOGLOBIN 14.1 G/DL (13.3-17.7); LYMPHOCYTES # (AUTO) 0.5 X 10^3 (1.0-4.0); LYMPHOCYTES % (AUTO) 15 % (12-44); MEAN CORPUSCULAR HEMOGLOBIN 34 PG (25-34); MEAN CORPUSCULAR HGB CONC 36 G/DL (32-36); MEAN CORPUSCULAR VOLUME 96 FL (80-99); MEAN PLATELET VOLUME 9.2 FL (7.4-10.4); MONOCYTES # (AUTO) 0.3 X 10^3 (0.0-1.0); MONOCYTES % (AUTO) 9 % (0-12); NEUTROPHILS # (AUTO) 2.6 X 10^3 (1.8-7.8); NEUTROPHILS % (AUTO) 75 % (42-75); PLATELET COUNT 148 10^3/uL (130-400); RED CELL DISTRIBUTION WIDTH 13.6 % (10.0-14.5); WHITE BLOOD COUNT 3.4 10^3/uL (4.3-11.0)
[2018-07-27 10:06] LABS: ALANINE AMINOTRANSFERASE 19 U/L (0-55); ALKALINE PHOSPHATASE 53 U/L (40-136); BUN/CREATININE RATIO 13; CALCIUM 9.3 MG/DL (8.5-10.1); CARBON DIOXIDE 22 MMOL/L (21-32); CHLORIDE 107 MMOL/L (98-107); CREATININE SERUM 1.05 MG/DL (0.60-1.30); GFR ESTIMATED > 60; GLUCOSE 139 MG/DL (70-105); MAGNESIUM 1.9 MG/DL (1.8-2.4); POTASSIUM 3.9 MMOL/L (3.6-5.0); SODIUM 139 MMOL/L (135-145); TOTAL PROTEIN 6.8 GM/DL (6.4-8.2)
[2018-08-03 09:54] LABS: BASOPHILS % (AUTO) 1 % (0-10); EOSINOPHILS % (AUTO) 1 % (0-10); HEMATOCRIT 38 % (40-54); HEMOGLOBIN 13.8 G/DL (13.3-17.7); LYMPHOCYTES # (AUTO) 0.7 X 10^3 (1.0-4.0); LYMPHOCYTES % (AUTO) 18 % (12-44); MEAN CORPUSCULAR HEMOGLOBIN 34 PG (25-34); MEAN CORPUSCULAR HGB CONC 36 G/DL (32-36); MEAN CORPUSCULAR VOLUME 94 FL (80-99); MEAN PLATELET VOLUME 9.2 FL (7.4-10.4); MONOCYTES # (AUTO) 0.5 X 10^3 (0.0-1.0); MONOCYTES % (AUTO) 12 % (0-12); NEUTROPHILS # (AUTO) 2.5 X 10^3 (1.8-7.8); NEUTROPHILS % (AUTO) 69 % (42-75); PLATELET COUNT 145 10^3/uL (130-400); RED BLOOD COUNT 4.04 10^6/uL (4.35-5.85); RED CELL DISTRIBUTION WIDTH 13.9 % (10.0-14.5); WHITE BLOOD COUNT 3.7 10^3/uL (4.3-11.0)
[2018-08-03 10:13] LABS: BUN/CREATININE RATIO 15; CALCIUM 9.4 MG/DL (8.5-10.1); CARBON DIOXIDE 22 MMOL/L (21-32); CHLORIDE 105 MMOL/L (98-107); CREATININE SERUM 1.07 MG/DL (0.60-1.30); GFR ESTIMATED > 60; GLUCOSE 129 MG/DL (70-105); MAGNESIUM 1.9 MG/DL (1.8-2.4); POTASSIUM 4.1 MMOL/L (3.6-5.0); SODIUM 138 MMOL/L (135-145)
[2018-08-10 09:15] LABS: BASOPHILS % (AUTO) 1 % (0-10); EOSINOPHILS % (AUTO) 1 % (0-10); HEMATOCRIT 39 % (40-54); LYMPHOCYTES # (AUTO) 0.5 X 10^3 (1.0-4.0); LYMPHOCYTES % (AUTO) 11 % (12-44); MEAN CORPUSCULAR HEMOGLOBIN 34 PG (25-34); MEAN CORPUSCULAR HGB CONC 36 G/DL (32-36); MEAN CORPUSCULAR VOLUME 95 FL (80-99); MONOCYTES # (AUTO) 0.5 X 10^3 (0.0-1.0); MONOCYTES % (AUTO) 12 % (0-12); NEUTROPHILS # (AUTO) 3.3 X 10^3 (1.8-7.8); NEUTROPHILS % (AUTO) 76 % (42-75); PLATELET COUNT 142 10^3/uL (130-400); RED BLOOD COUNT 4.16 10^6/uL (4.35-5.85); RED CELL DISTRIBUTION WIDTH 14.1 % (10.0-14.5); WHITE BLOOD COUNT 4.3 10^3/uL (4.3-11.0)
[2018-08-10 09:37] LABS: ALANINE AMINOTRANSFERASE 24 U/L (0-55); ALKALINE PHOSPHATASE 57 U/L (40-136); BILIRUBIN,TOTAL 0.8 MG/DL (0.1-1.0); BUN/CREATININE RATIO 18; CALCIUM 9.6 MG/DL (8.5-10.1); CARBON DIOXIDE 22 MMOL/L (21-32); CHLORIDE 105 MMOL/L (98-107); CREATININE SERUM 1.16 MG/DL (0.60-1.30); GFR ESTIMATED > 60; GLUCOSE 103 MG/DL (70-105); POTASSIUM 4.4 MMOL/L (3.6-5.0); SODIUM 140 MMOL/L (135-145)
[2018-08-17 09:53] LABS: BASOPHILS % (AUTO) 1 % (0-10); EOSINOPHILS % (AUTO) 1 % (0-10); HEMATOCRIT 39 % (40-54); HEMOGLOBIN 13.5 G/DL (13.3-17.7); LYMPHOCYTES # (AUTO) 0.4 X 10^3 (1.0-4.0); LYMPHOCYTES % (AUTO) 13 % (12-44); MEAN CORPUSCULAR HEMOGLOBIN 33 PG (25-34); MEAN CORPUSCULAR HGB CONC 35 G/DL (32-36); MEAN CORPUSCULAR VOLUME 95 FL (80-99); MEAN PLATELET VOLUME 8.9 FL (7.4-10.4); MONOCYTES # (AUTO) 0.4 X 10^3 (0.0-1.0); MONOCYTES % (AUTO) 11 % (0-12); NEUTROPHILS # (AUTO) 2.5 X 10^3 (1.8-7.8); NEUTROPHILS % (AUTO) 75 % (42-75); PLATELET COUNT 171 10^3/uL (130-400); RED BLOOD COUNT 4.08 10^6/uL (4.35-5.85); RED CELL DISTRIBUTION WIDTH 14.2 % (10.0-14.5); WHITE BLOOD COUNT 3.4 10^3/uL (4.3-11.0)
[2018-08-17 10:10] LABS: BUN/CREATININE RATIO 16; CALCIUM 9.8 MG/DL (8.5-10.1); CARBON DIOXIDE 24 MMOL/L (21-32); CHLORIDE 106 MMOL/L (98-107); CREATININE SERUM 1.08 MG/DL (0.60-1.30); GFR ESTIMATED > 60; GLUCOSE 118 MG/DL (70-105); MAGNESIUM 1.8 MG/DL (1.8-2.4); POTASSIUM 4.2 MMOL/L (3.6-5.0); SODIUM 138 MMOL/L (135-145)
[2018-08-26 09:25] LABS: BASOPHILS % (AUTO) 0 % (0-10); EOSINOPHILS % (AUTO) 0 % (0-10); HEMATOCRIT 38 % (40-54); HEMOGLOBIN 13.2 G/DL (13.3-17.7); LYMPHOCYTES # (AUTO) 0.5 X 10^3 (1.0-4.0); LYMPHOCYTES % (AUTO) 17 % (12-44); MEAN CORPUSCULAR HEMOGLOBIN 34 PG (25-34); MEAN CORPUSCULAR HGB CONC 35 G/DL (32-36); MEAN CORPUSCULAR VOLUME 95 FL (80-99); MEAN PLATELET VOLUME 8.3 FL (7.4-10.4); MONOCYTES # (AUTO) 0.5 X 10^3 (0.0-1.0); MONOCYTES % (AUTO) 14 % (0-12); NEUTROPHILS # (AUTO) 2.2 X 10^3 (1.8-7.8); NEUTROPHILS % (AUTO) 68 % (42-75); PLATELET COUNT 195 10^3/uL (130-400); RED BLOOD COUNT 3.94 10^6/uL (4.35-5.85); RED CELL DISTRIBUTION WIDTH 14.8 % (10.0-14.5); WHITE BLOOD COUNT 3.2 10^3/uL (4.3-11.0)
[2018-08-26 09:54] LABS: BILIRUBIN,TOTAL 0.6 MG/DL (0.1-1.0); CALCIUM 9.8 MG/DL (8.5-10.1); CREATININE SERUM 1.21 MG/DL (0.60-1.30); MAGNESIUM 1.8 MG/DL (1.8-2.4); POTASSIUM 4.3 MMOL/L (3.6-5.0); TOTAL PROTEIN 7.2 GM/DL (6.4-8.2)
[2018-09-28 10:09] LABS: BASOPHILS % (AUTO) 1 % (0-10); EOSINOPHILS # (AUTO) 0.1 10^3/uL (0.0-0.3); EOSINOPHILS % (AUTO) 2 % (0-10); HEMATOCRIT 39 % (40-54); HEMOGLOBIN 13.7 G/DL (13.3-17.7); LYMPHOCYTES # (AUTO) 1.3 X 10^3 (1.0-4.0); LYMPHOCYTES % (AUTO) 20 % (12-44); MEAN CORPUSCULAR HEMOGLOBIN 35 PG (25-34); MEAN CORPUSCULAR HGB CONC 35 G/DL (32-36); MEAN CORPUSCULAR VOLUME 99 FL (80-99); MEAN PLATELET VOLUME 8.5 FL (7.4-10.4); MONOCYTES # (AUTO) 0.8 X 10^3 (0.0-1.0); MONOCYTES % (AUTO) 13 % (0-12); NEUTROPHILS # (AUTO) 4.3 X 10^3 (1.8-7.8); NEUTROPHILS % (AUTO) 66 % (42-75); PLATELET COUNT 209 10^3/uL (130-400); RED BLOOD COUNT 3.97 10^6/uL (4.35-5.85); RED CELL DISTRIBUTION WIDTH 15.6 % (10.0-14.5); WHITE BLOOD COUNT 6.5 10^3/uL (4.3-11.0)
[2018-09-28 10:30] LABS: ALANINE AMINOTRANSFERASE 20 U/L (0-55); ALBUMIN 4.2 GM/DL (3.2-4.5); ALKALINE PHOSPHATASE 72 U/L (40-136); BILIRUBIN,TOTAL 0.9 MG/DL (0.1-1.0); BUN/CREATININE RATIO 14; CALCIUM 9.6 MG/DL (8.5-10.1); CARBON DIOXIDE 25 MMOL/L (21-32); CHLORIDE 106 MMOL/L (98-107); CREATININE SERUM 1.16 MG/DL (0.60-1.30); GFR ESTIMATED > 60; GLUCOSE 93 MG/DL (70-105); POTASSIUM 4.4 MMOL/L (3.6-5.0); SODIUM 142 MMOL/L (135-145); TOTAL PROTEIN 7.5 GM/DL (6.4-8.2)
[~2018-10-06] VITALS: Ht 186.7 cm; Wt 119.7 kg
[~2018-10-06 13:54] MED LIST changes: +CARBOPLATIN 170 MG in D5W 50 ML IV(CANCER CTR) 50 ML IV SCH; +DURVALUMAB IV SCH; +FAMOTIDINE 20MG/2ML IV (CANCER CTR) IV SCH; -IOHEXOL 350 MG/ML 100 ML (OMNIPAQUE 350) VIAL IV ONE; -NS 250 ML (IVPB) BAG IV ONE; +NS IV 1000 ML (CANCER CTR) IV SCH; +NS IV SCH; +PACLITAXEL 90 MG in NORMAL SALINE (CANCER CENTER) 250 ML IV SCH; +PALONOSETRON HCL 0.25 MG, DEXAMETHASONE INJECTION 10 MG in NS (IVPB) CANCER CENTER 50 ML IV SCH; -RECEIVED CONTRAST (Hold Metformin) IV SCH; +diphenhydrAMINE 25 MG TAB (BENADRYL) CANCER CENTER PO SCH
== END 2018-10-18 | disposition home or self-care (01) ==
LOC: ONC 13:54
PROVIDERS: ATTEND Internal Medicine Hematology & Oncology
DX: Z51.11 Encounter for antineoplastic chemotherapy (principal); C34.12 Malignant neoplasm of upper lobe, left bronchus or lung; I10 Essential (primary) hypertension; K21.9 Gastro-esophageal reflux disease without esophagitis; Z79.899 Other long term (current) drug therapy
CPT/HCPCS: 36415; 36591; 77307; 77334; 77336; 77417; 80048; 80053; 83735; 84443; 85025; 96375; 96413; 96417; 99213

== ENCOUNTER 2018-12-03 05:36 | Outpatient (CLI) | payer BC ==
[~2018-12-03] VITALS: Ht 188 cm; Wt 120.2 kg
[~2018-12-03 05:36] MED LIST changes: -CARBOPLATIN 170 MG in D5W 50 ML IV(CANCER CTR) 50 ML IV SCH; -DURVALUMAB IV SCH; -FAMOTIDINE 20MG/2ML IV (CANCER CTR) IV SCH; -NS IV 1000 ML (CANCER CTR) IV SCH; -NS IV SCH; -PACLITAXEL 90 MG in NORMAL SALINE (CANCER CENTER) 250 ML IV SCH; -PALONOSETRON HCL 0.25 MG, DEXAMETHASONE INJECTION 10 MG in NS (IVPB) CANCER CENTER 50 ML IV SCH; -diphenhydrAMINE 25 MG TAB (BENADRYL) CANCER CENTER PO SCH
[2018-12-04] MEDS ORDERED: TRAM50TA2 PO (11:44)
== END 2018-12-03 12:13 | disposition home or self-care (01) ==
LOC: PREOP 05:36
PROVIDERS: ATTEND Surgery
DX: Z01.818 Encounter for other preprocedural examination (principal)

== ENCOUNTER 2018-12-04 10:27 | Day surgery (SDC) | payer BC ==
[~2018-12-04] VITALS: Ht 188 cm; Wt 120.2 kg
[2018-12-04 10:45] VITALS: BP 129/78
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
--- OUTSIDE RECORDS SUMMARY | 2018-12-04 10:51 | XMS REPORT | Clinical Summary ---
Author Author [facility] Organization [facility] Address Unknown Phone Unavailable Care Team Providers Care Commercial Announcer Name Role Phone Chris Mcduffie MD PCP Source Comments Some departments are not documenting in the electronic medical record. If you do not see the information that you expected, contact Release of Information in the Health Information Management department at [phone] for further assistance in locating additional records.[facility] Allergies No Known Allergies Medications End Date Status Medication Sig Dispensed Refills Start Date Active PROAIR HFA 90 Inhale 2 0 mcg/actuation inhaler puffs by 8 mouth into the lungs four times daily as needed. Active atorvastatin (LIPITOR) 20 Take 20 mg by 2 mg tablet mouth daily. 8 Active benazepril (LOTENSIN) 20 Take 20 mg by 3 mg tablet mouth daily. 8 Active cetirizine (ZYRTEC) 10 mg Take 10 mg by 11 tablet mouth daily. 8 Active TRELEGY ELLIPTA U 1 4 100-62.5-25 mcg dsdv INHALATION PO 8 D Active latanoprost (XALATAN) INT 1 GTT 2 0.005 % ophthalmic INTO OU HS 8 solution Active montelukast (SINGULAIR) Take 10 mg by 4 10 mg tablet mouth daily. 8 Active mupirocin (BACTROBAN) 2 % DANIEL AA D 4 topical ointment [address](+) Take 40 mg by 4 (PRILOSEC) 40 mg capsule mouth daily. 8 Active naproxen sodium (ALEVE Take 1 0 PO) capsule by mouth as Needed. Active Problems Problem Noted Date Hilar lymphadenopathy 06/04/2018 Hilar adenopathy 06/04/2018 Overview: Added automatically from request for surgery [id number] Malignant neoplasm of upper lobe of left lung 06/04/2018 Overview: Added automatically from request for surgery [id number] Squamous carcinoma of lung, left Cancer Staging: Clinical stage from 06/18/2018: Stage IIB (cT2a, cN1, cM0) - Signed by Loren Reina MD on 06/18/2018 Overview: RONNIE squamous cell carcinoma COPD (chronic obstructive pulmonary disease) Family History Medical History Relation Name Comments Lung Disease Father Cancer Mother Heart Disease Mother Cancer Sister Relation Name Status Comments Father Mother Sister Social History Date Tobacco Use Types Packs/Day Years Used Current Some Day Smoker Cigarettes 1 50 Smokeless Tobacco: Never Used Alcohol Use Drinks/Week oz/Week Comments Yes 3-4 Cans of 1.8 - 2.4 beer Sex Assigned at Date Recorded Not on file Industry Job Start Date Occupation Not on file Not on file Not on file Travel End Travel History Travel Start No recent travel history available. Last Filed Vital Signs Time Taken Vital Sign Reading 06/18/2018 8:59 AM CDT Blood Pressure 151/68 06/18/2018 8:59 AM CDT Pulse 74 06/18/2018 8:59 AM CDT Temperature 36.7 C (98 F) 06/18/2018 8:59 AM CDT Respiratory Rate 16 06/18/2018 8:59 AM CDT Oxygen Saturation 95% - Inhaled Oxygen - Concentration 06/18/2018 8:59 AM CDT Weight 121.1 kg (267 lb) 06/18/2018 8:59 AM CDT Height 188 cm (6' 2.02") 06/18/2018 8:59 AM CDT Body Mass Index 34.27 Plan of Treatment Health Maintenance Due Date Last Done Comments HEPATITIS C SCREENING 1949 PHYSICAL (COMPREHENSIVE) 1956 EXAM DTAP/TDAP VACCINES (1 - 1967 Tdap) COLORECTAL CANCER 1999 SCREENING SHINGLES RECOMBINANT 1999 VACCINE (1 of 2) ABDOMINAL AORTIC ANEURYSM 2014 SCREENING PNEUMONIA (PCV13/PPSV23) 2014 VACCINES (1 of 2 - PCV13) INFLUENZA VACCINE 05/20/2018 Results Not on filefrom Last 3 Months Insurance Payer Benefit Subscriber ID Type Phone Address Plan / Group [employer] xxxxxxxxxxxx PPO BLUE OUT OF STATE Advance Directives Patient has advance care planning documents on file. For more information, please contact: [facility] [address] [place] [address]
--- OUTSIDE RECORDS SUMMARY | 2018-12-04 10:52 | XMS REPORT | Continuity of Care Document ---
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 CONTRERAS BULLION WEIGHER Ot C34.92 MALIGNANT NEOPLASM OF UNSP PART OF LEFT 07/01/2018 ELIZABETH CONTRERAS BULLION WEIGHER Ot R59.0 LOCALIZED ENLARGED LYMPH NODES 07/01/2018 MARTHA, BOBAN N Ot C34.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 LOBE, LEFT B 07/01/2018 MARTHA, BOBAN N Ot I10 ESSENTIAL (PRIMARY) HYPERTENSION 07/01/2018 MARTHA, BOBAN N Ot K21.9 GASTRO-ESOPHAGEAL REFLUX DISEASE WITHOUT 07/01/2018 MARTHA, BOBAN N Ot Z79.899 OTHER [facility] (CURRENT) DRUG THERAPY 07/01/2018 MARTHA, BOBAN N Ot C34.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 LOBE, LEFT B 07/01/2018 MARTHA, BOBAN N Ot I10 ESSENTIAL (PRIMARY) HYPERTENSION 07/01/2018 MARTHA, BOBAN N Ot K21.9 GASTRO-ESOPHAGEAL REFLUX DISEASE WITHOUT 07/01/2018 MARTHA, BOBAN N Ot Z79.899 OTHER BEAN SNAPPER (CURRENT) DRUG THERAPY 07/01/2018 MARTHA, BOBAN N Ot C34.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 LOBE, LEFT B 07/01/2018 MARTHA, BOBAN N Ot I10 ESSENTIAL (PRIMARY) HYPERTENSION 07/01/2018 MARTHA, BOBAN N Ot K21.9 GASTRO-ESOPHAGEAL REFLUX DISEASE WITHOUT 07/01/2018 MARTHA, BOBAN N Ot Z79.899 OTHER BEAN SNAPPER (CURRENT) DRUG THERAPY 07/08/2018 CHRISTIANO MUSE, FILEMON Kirkland Ot Z01.818 ENCOUNTER FOR OTHER PREPROCEDURAL EXAMIN 07/09/2018 FILEMON ALVARADO MD Ot Z01.818 ENCOUNTER FOR OTHER PREPROCEDURAL EXAMIN 07/10/2018 CHRISTIANO MUSE, FILEMON [place] Ot C34.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 LOBE, LEFT B 07/10/2018 CHRISTIANO MUSE, FILEMON [place] Ot E78.00 PURE HYPERCHOLESTEROLEMIA, UNSPECIFIED 07/10/2018 CHRISTIANO MUSE, FILEMON [place] Ot F17.210 NICOTINE DEPENDENCE, CIGARETTES, UNCOMPL 07/10/2018 CHRISTIANO MUSE, FILEMON [place] Ot G47.33 OBSTRUCTIVE SLEEP APNEA (ADULT) (PEDIATR 07/10/2018 CHRISTIANO UMSE, FILEMON [place] Ot I10 ESSENTIAL (PRIMARY) HYPERTENSION 07/10/2018 CHRISTIANO MUSE, FILEMON [place] Ot J44.9 CHRONIC OBSTRUCTIVE PULMONARY DISEASE, U 07/10/2018 FILEMON ALVARADO MD Ot K21.9 GASTRO-ESOPHAGEAL REFLUX DISEASE WITHOUT 07/10/2018 CHRISTIANO MUSE, FILEMON [place] Ot Z79.899 OTHER [facility] (CURRENT) DRUG THERAPY 07/14/2018 CHRISTIANO MUSE, FILEMON [place] Ot Z01.818 ENCOUNTER FOR OTHER PREPROCEDURAL EXAMIN 07/14/2018 CHRISTIANO MUSE, FILEMON [place] Ot C34.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 LOBE, LEFT B 07/14/2018 CHRISTIANO MUSE, FILEMON [place] Ot E78.00 PURE HYPERCHOLESTEROLEMIA, UNSPECIFIED 07/14/2018 CHRISTIANO MUSE, FILEMON [place] Ot F17.210 NICOTINE DEPENDENCE, CIGARETTES, UNCOMPL 07/14/2018 FILEMON ALVARADO MD Ot G47.33 OBSTRUCTIVE SLEEP APNEA (ADULT) (PEDIATR 07/14/2018 CHRISTIANO MUSE, FILEMON [place] Ot I10 ESSENTIAL (PRIMARY) HYPERTENSION 07/14/2018 CHRISTIANO MUSE, FILEMON [place] Ot J44.9 CHRONIC OBSTRUCTIVE PULMONARY DISEASE, U 07/14/2018 FILEMON ALVARADO MD Ot K21.9 GASTRO-ESOPHAGEAL REFLUX DISEASE WITHOUT 07/14/2018 FILEMON ALVARADO MD Ot Z79.899 OTHER [facility] (CURRENT) DRUG THERAPY 07/20/2018 RAY THOMAS Ot C34.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 LOBE, LEFT B 07/20/2018 RAY THOMAS Ot I10 ESSENTIAL (PRIMARY) HYPERTENSION 07/20/2018 RAY THOMAS Hemal Ot K21.9 GASTRO-ESOPHAGEAL REFLUX DISEASE WITHOUT 07/20/2018 RAY THOMAS Hemal Ot Z51.0 ENCOUNTER FOR ANTINEOPLASTIC RADIATION T 07/20/2018 MARTHARAY Ot Z51.11 ENCOUNTER FOR ANTINEOPLASTIC CHEMOTHERAP 07/20/2018 RAY THOMAS Hemal Ot Z79.899 OTHER BEAN SNAPPER (CURRENT) DRUG THERAPY 07/20/2018 SARAH MUSE, NATHANIEL Hendrix Ot 786.07 WHEEZING 07/20/2018 NATHANIEL SMITH MD Ot 786.2 COUGH 07/20/2018 Ot 443.9 PERIPH VASCULAR DIS NOS 07/20/2018 Ot 459.81 VENOUS INSUFFICIENCY NOS 07/20/2018 Ot 707.10 ULCER OF LOWER LIMB NOS 07/20/2018 SARAH MUSE, NATHANIEL Hendrix Ot Z01.818 ENCOUNTER FOR OTHER PREPROCEDURAL EXAMIN 07/20/2018 NICOLE MUSE, MARICARMEN P Ot R04.2 HEMOPTYSIS 07/20/2018 NICOLE MUSE, MARICARMEN P Ot R91.8 OTHER NONSPECIFIC ABNORMAL FINDING OF JASEN 07/20/2018 NICOLE MUSE, MARICARMEN P Ot I25.10 ATHSCL HEART DISEASE OF [place] CORONARY 07/20/2018 NICOLE MUSE, MARICARMEN P Ot R91.1 SOLITARY PULMONARY NODULE 07/20/2018 ELIZABETH CONTRERAS BULLION WEIGHER Ot R04.2 HEMOPTYSIS 07/20/2018 ELIZABETH CONTRERAS BULLION WEIGHER Ot R06.00 DYSPNEA, UNSPECIFIED 07/20/2018 ELIZABETH CONTRERAS BULLION WEIGHER Ot F17.200 NICOTINE DEPENDENCE, UNSPECIFIED, UNCOMP 07/20/2018 ELIZABETH CONTRERAS BULLION WEIGHER Ot R06.00 DYSPNEA, UNSPECIFIED 07/20/2018 ELIZABETH CONTRERAS BULLION WEIGHER Ot R06.00 DYSPNEA, UNSPECIFIED 07/20/2018 ELIZABETH CONTRERAS BULLION WEIGHER Ot J44.9 CHRONIC OBSTRUCTIVE PULMONARY DISEASE, U 07/20/2018 ELIZABETH CONTRERAS BULLION WEIGHER Ot F17.200 NICOTINE DEPENDENCE, UNSPECIFIED, UNCOMP 07/20/2018 ELIZABETH CONTRERAS BULLION WEIGHER Ot J84.10 PULMONARY FIBROSIS, UNSPECIFIED 07/20/2018 ELIZABETH CONTRERAS BULLION WEIGHER Ot R04.2 HEMOPTYSIS 07/20/2018 ELIZABETH CONTRERAS BULLION WEIGHER Ot C34.92 MALIGNANT NEOPLASM OF UNSP PART OF LEFT 07/20/2018 ELIZABETH CONTRERAS BULLION WEIGHER Ot R59.0 LOCALIZED ENLARGED LYMPH NODES 07/20/2018 MARTHA, BOBAN N Ot C34.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 LOBE, LEFT B 07/20/2018 MARTHA BOBAN N Ot I10 ESSENTIAL (PRIMARY) HYPERTENSION 07/20/2018 MARTHA, BOBAN N Ot K21.9 GASTRO-ESOPHAGEAL REFLUX DISEASE WITHOUT 07/20/2018 MARTHA, BOBAN N Ot Z79.899 OTHER BEAN SNAPPER (CURRENT) DRUG THERAPY 07/21/2018 MARTHA, BOBAN N Ot C34.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 LOBE, LEFT B 07/21/2018 MARTHA, BOBAN N Ot I10 ESSENTIAL (PRIMARY) HYPERTENSION 07/21/2018 MARTHA BOBAN N Ot K21.9 GASTRO-ESOPHAGEAL REFLUX DISEASE WITHOUT 07/21/2018 MARTHA, BOBAN N Ot Z79.899 OTHER [facility] (CURRENT) DRUG THERAPY 07/21/2018 SARAH MUSE, NATHANIEL Hendrix Ot 786.07 WHEEZING 07/21/2018 NATHANIEL SMITH MD Ot 786.2 COUGH 07/21/2018 Ot 443.9 PERIPH VASCULAR DIS NOS 07/21/2018 Ot 459.81 VENOUS INSUFFICIENCY NOS 07/21/2018 Ot 707.10 ULCER OF LOWER LIMB NOS 07/21/2018 SARAH MUSE, NATHANIEL Hendrix Ot Z01.818 ENCOUNTER FOR OTHER PREPROCEDURAL EXAMIN 07/21/2018 NICOLE MUSE, MARICARMEN Carias Ot R04.2 HEMOPTYSIS 07/21/2018 MARICARMEN RIVERA MD Ot R91.8 OTHER NONSPECIFIC ABNORMAL FINDING OF JASEN 07/21/2018 MARICARMEN RIVERA MD Ot I25.10 ATHSCL HEART DISEASE OF [place] CORONARY 07/21/2018 MARICARMEN RIVERA MD Ot R91.1 SOLITARY PULMONARY NODULE 07/21/2018 ELIZABETH CONTRERAS APRN Ot R04.2 HEMOPTYSIS 07/21/2018 ELIZABETH CONTRERAS BULLION WEIGHER Ot R06.00 DYSPNEA, UNSPECIFIED 07/21/2018 ELIZABETH CONTRERAS BULLION WEIGHER Ot F17.200 NICOTINE DEPENDENCE, UNSPECIFIED, UNCOMP 07/21/2018 ELIZABETH CONTRERAS BULLION WEIGHER Ot R06.00 DYSPNEA, UNSPECIFIED 07/21/2018 ELIZABETH CONTRERAS BULLION WEIGHER Ot R06.00 DYSPNEA, UNSPECIFIED 07/21/2018 ELIZABETH OCNTRERAS BULLION WEIGHER Ot J44.9 CHRONIC OBSTRUCTIVE PULMONARY DISEASE, U 07/21/2018 ELIZABETH CONTRERAS BULLION WEIGHER Ot F17.200 NICOTINE DEPENDENCE, UNSPECIFIED, UNCOMP 07/21/2018 BRADEN CONTRERASINE E BULLION WEIGHER Ot J84.10 PULMONARY FIBROSIS, UNSPECIFIED 07/21/2018 BRADEN CONTRERASINE E BULLION WEIGHER Ot R04.2 HEMOPTYSIS 07/21/2018 BRADEN CONTRERASINE Sarbjit BULLION WEIGHER Ot C34.92 MALIGNANT NEOPLASM OF UNSP PART OF LEFT 07/21/2018 DIANE ELIZABETH E BULLION WEIGHER Ot R59.0 LOCALIZED ENLARGED LYMPH NODES 07/21/2018 MARTHA, BOBAN N Ot C34.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 LOBE, LEFT B 07/21/2018 MARTHA, BOBAN N Ot I10 ESSENTIAL (PRIMARY) HYPERTENSION 07/21/2018 MARTHA, BOBAN N Ot K21.9 GASTRO-ESOPHAGEAL REFLUX DISEASE WITHOUT 07/21/2018 MARTHA, BOBAN N Ot Z79.899 OTHER BEAN SNAPPER (CURRENT) DRUG THERAPY 07/22/2018 MARTHA, BOBAN N Ot C34.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 LOBE, LEFT B 07/22/2018 MARTHA, BOBAN N Ot I10 ESSENTIAL (PRIMARY) HYPERTENSION 07/22/2018 MARTHA, BOBAN N Ot K21.9 GASTRO-ESOPHAGEAL REFLUX DISEASE WITHOUT 07/22/2018 MARTHA, BOBAN N Ot Z79.899 OTHER BEAN SNAPPER (CURRENT) DRUG THERAPY 08/05/2018 ELIZABETH CONTRERAS BULLION WEIGHER Ot R06.00 DYSPNEA, UNSPECIFIED 08/10/2018 MARTHA, BOBAN N Ot C34.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 LOBE, LEFT B 08/10/2018 MARTHA, BOBAN N Ot I10 ESSENTIAL (PRIMARY) HYPERTENSION 08/10/2018 MARTHA, BOBAN N Ot K21.9 GASTRO-ESOPHAGEAL REFLUX DISEASE WITHOUT 08/10/2018 MARTHA, BOBAN N Ot Z51.11 ENCOUNTER FOR ANTINEOPLASTIC CHEMOTHERAP 08/10/2018 MARTHA, BOBAN N Ot Z79.899 OTHER [facility] (CURRENT) DRUG THERAPY 09/03/2018 MARTHA, BOBAN N Ot C34.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 LOBE, LEFT B 09/03/2018 MARTHA, BOBAN N Ot I10 ESSENTIAL (PRIMARY) HYPERTENSION 09/03/2018 MARTHA SAMARAROLDAN Hemal Ot K21.9 GASTRO-ESOPHAGEAL REFLUX DISEASE WITHOUT 09/03/2018 MARTHA SAMARAROLDAN Hemal Ot Z51.11 ENCOUNTER FOR ANTINEOPLASTIC CHEMOTHERAP 09/03/2018 MARTHA, RAY Recio Ot Z79.899 OTHER BEAN SNAPPER (CURRENT) DRUG THERAPY 09/28/2018 SARAH MUSE, NATHANIEL Hendrix Ot 786.07 WHEEZING 09/28/2018 SARAH MUSE, NATHANIEL Hendrix Ot 786.2 COUGH 09/28/2018 Ot 443.9 PERIPH VASCULAR DIS NOS 09/28/2018 Ot 459.81 VENOUS INSUFFICIENCY NOS 09/28/2018 Ot 707.10 ULCER OF LOWER LIMB NOS 09/28/2018 SARAH MUSE, NATHANIEL Hendrix Ot Z01.818 ENCOUNTER FOR OTHER PREPROCEDURAL EXAMIN 09/28/2018 NICOLE MUSE, MARICARMEN P Ot R04.2 HEMOPTYSIS 09/28/2018 NICOLE MUSE, MARICARMEN P Ot R91.8 OTHER NONSPECIFIC ABNORMAL FINDING OF JASEN 09/28/2018 NICOLE MUSE, MARICARMEN P Ot I25.10 ATHSCL HEART DISEASE OF [place] CORONARY 09/28/2018 NICOLE MUSE, MARICARMEN P Ot R91.1 SOLITARY PULMONARY NODULE 09/28/2018 ELIZABETH CONTRERAS BULLION WEIGHER Ot R04.2 HEMOPTYSIS 09/28/2018 ELIZABETH CONTRERAS BULLION WEIGHER Ot R06.00 DYSPNEA, UNSPECIFIED 09/28/2018 BRADEN CONTRERASINE Sarbjit BULLION WEIGHER Ot F17.200 NICOTINE DEPENDENCE, UNSPECIFIED, UNCOMP 09/28/2018 BRADEN CONTRERASINE Sarbjit BULLION WEIGHER Ot R06.00 DYSPNEA, UNSPECIFIED 09/28/2018 BRADEN CONTRERASINE Sarbjit BULLION WEIGHER Ot R06.00 DYSPNEA, UNSPECIFIED 09/28/2018 BRADEN CONTRERASINE E BULLION WEIGHER Ot J44.9 CHRONIC OBSTRUCTIVE PULMONARY DISEASE, U 09/28/2018 BRADEN CONTRERASINE Sarbjit BULLION WEIGHER Ot F17.200 NICOTINE DEPENDENCE, UNSPECIFIED, UNCOMP 09/28/2018 BRADEN CONTRERASINE Sarbjit BULLION WEIGHER Ot J84.10 PULMONARY FIBROSIS, UNSPECIFIED 09/28/2018 BRADEN CONTRERASINE Sarbjit BULLION WEIGHER Ot R04.2 HEMOPTYSIS 09/28/2018 ELIZABETH CONTRERAS BULLION WEIGHER Ot C34.92 MALIGNANT NEOPLASM OF UNSP PART OF LEFT 09/28/2018 ELIZABETH CONTRERAS BULLION WEIGHER Ot R59.0 LOCALIZED ENLARGED LYMPH NODES 09/28/2018 MARTHA, BOBAN N Ot C34.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 LOBE, LEFT B 09/28/2018 MARTHA, BOBAN N Ot I10 ESSENTIAL (PRIMARY) HYPERTENSION 09/28/2018 MARTHA, BOBAN N Ot K21.9 GASTRO-ESOPHAGEAL REFLUX DISEASE WITHOUT 09/28/2018 MARTHA, BOBAN N Ot Z51.11 ENCOUNTER FOR ANTINEOPLASTIC CHEMOTHERAP 09/28/2018 MARTHA, BOBAN N Ot Z79.899 OTHER BEAN SNAPPER (CURRENT) DRUG THERAPY 09/30/2018 THAI BARBA AUDIOVISUAL PRODUCTION SPECIALIST Ot C34.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 LOBE, LEFT B 10/05/2018 MARTHA, BOBAN N Ot C34.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 LOBE, LEFT B 10/05/2018 MARTHA, BOBAN N Ot I10 ESSENTIAL (PRIMARY) HYPERTENSION 10/05/2018 MARTHA, BOBAN N Ot K21.9 GASTRO-ESOPHAGEAL REFLUX DISEASE WITHOUT 10/05/2018 MARTHA, BOBAN N Ot Z51.11 ENCOUNTER FOR ANTINEOPLASTIC CHEMOTHERAP 10/05/2018 MARTHA, BOBAN N Ot Z79.899 OTHER [facility] (CURRENT) DRUG THERAPY 10/18/2018 MARTHA, BOBAN N Ot C34.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 LOBE, LEFT B 10/18/2018 MARTHA, BOBAN N Ot I10 ESSENTIAL (PRIMARY) HYPERTENSION 10/18/2018 MARTHA, BOBAN N Ot K21.9 GASTRO-ESOPHAGEAL REFLUX DISEASE WITHOUT 10/18/2018 MARTHA, BOBAN N Ot Z51.11 ENCOUNTER FOR ANTINEOPLASTIC CHEMOTHERAP 10/18/2018 MARTHA, BOBAN N Ot Z79.899 OTHER BEAN SNAPPER (CURRENT) DRUG THERAPY 10/19/2018 MARTHA, BOBAN N Ot C34.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 LOBE, LEFT B 10/19/2018 MARTHA, BOBAN N Ot I10 ESSENTIAL (PRIMARY) HYPERTENSION 10/19/2018 MARTHA, BOBAN N Ot K21.9 GASTRO-ESOPHAGEAL REFLUX DISEASE WITHOUT 10/19/2018 MARTHA, BOBAN N Ot Z51.11 ENCOUNTER FOR ANTINEOPLASTIC CHEMOTHERAP 10/19/2018 MARTHA, BOBAN N Ot Z79.899 OTHER BEAN SNAPPER (CURRENT) DRUG THERAPY 10/19/2018 MARTHA, BOBAN N Ot C34.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 LOBE, LEFT B 10/19/2018 MARTHA BOBAN N Ot I10 ESSENTIAL (PRIMARY) HYPERTENSION 10/19/2018 MARTHA BOBAN N Ot K21.9 GASTRO-ESOPHAGEAL REFLUX DISEASE WITHOUT 10/19/2018 MARTHA, BOBAN N Ot Z51.11 ENCOUNTER FOR ANTINEOPLASTIC CHEMOTHERAP 10/19/2018 MARTHA BOBAN N Ot Z79.899 OTHER [facility] (CURRENT) DRUG THERAPY 10/24/2018 MARTHA BOBAN N Ot C34.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 LOBE, LEFT B 10/24/2018 MARTHA, BOBAN N Ot I10 ESSENTIAL (PRIMARY) HYPERTENSION 10/24/2018 MARTHA, BOBAN N Ot K21.9 GASTRO-ESOPHAGEAL REFLUX DISEASE WITHOUT 10/24/2018 MARTHA, BOBAN N Ot Z51.11 ENCOUNTER FOR ANTINEOPLASTIC CHEMOTHERAP 10/24/2018 MARTHA, BOBAN N Ot Z79.899 OTHER BEAN SNAPPER (CURRENT) DRUG THERAPY 11/02/2018 MARTHA BOBAN N Ot C34.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 LOBE, LEFT B 11/02/2018 MARTHA, BOBAN N Ot I10 ESSENTIAL (PRIMARY) HYPERTENSION 11/02/2018 MARTHA BOBAN N Ot K21.9 GASTRO-ESOPHAGEAL REFLUX DISEASE WITHOUT 11/02/2018 MARTHA, BOBAN N Ot Z51.11 ENCOUNTER FOR ANTINEOPLASTIC CHEMOTHERAP 11/02/2018 MARTHA BOBAN N Ot Z79.899 OTHER BEAN SNAPPER (CURRENT) DRUG THERAPY 11/16/2018 MARTHA BOBAN N Ot C34.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 LOBE, LEFT B 11/16/2018 MARTHA BOBAN N Ot I10 ESSENTIAL (PRIMARY) HYPERTENSION 11/16/2018 MARTHA BOBAN N Ot K21.9 GASTRO-ESOPHAGEAL REFLUX DISEASE WITHOUT 11/16/2018 MARTHA, BOBAN N Ot Z51.11 ENCOUNTER FOR ANTINEOPLASTIC CHEMOTHERAP 11/16/2018 MARTHA, BOBAN N Ot Z79.899 OTHER BEAN SNAPPER (CURRENT) DRUG THERAPY 11/16/2018 MARTHA BOBAN N Ot C34.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 LOBE, LEFT B 11/16/2018 MARTHA, BOBAN N Ot I10 ESSENTIAL (PRIMARY) HYPERTENSION 11/16/2018 MARTHA BOBAN N Ot K21.9 GASTRO-ESOPHAGEAL REFLUX DISEASE WITHOUT 11/16/2018 RAY THOMAS Ot Z51.11 ENCOUNTER FOR ANTINEOPLASTIC CHEMOTHERAP 11/16/2018 RAY THOMAS Ot Z79.899 OTHER BEAN SNAPPER (CURRENT) DRUG THERAPY 12/02/2018 RAY THOMAS Ot C34.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 LOBE, LEFT B 12/02/2018 RAY THOMAS Ot I10 ESSENTIAL (PRIMARY) HYPERTENSION 12/02/2018 RAY THOMAS Ot K21.9 GASTRO-ESOPHAGEAL REFLUX DISEASE WITHOUT 12/02/2018 RAY THOMAS Ot Z51.11 ENCOUNTER FOR ANTINEOPLASTIC CHEMOTHERAP 12/02/2018 RAY THOMAS Ot Z79.899 OTHER [facility] (CURRENT) DRUG THERAPY Procedures Code Description Performed By Performed On 86.69 FREE SKIN GRAFT BILL Chow MD, Isaiah Delgado 06/23/2013 10225 Postoperative follow-up visit, normally included in the surgical package, to indicate that an Isaiah 07/06/2013 63975 Postoperative follow-up visit, normally included in the surgical package, to indicate that an Isaiah 07/13/2013 08093 Postoperative follow-up visit, normally included in the surgical package, to indicate that an Isaiah 07/20/2013 86.69 FREE SKIN GRAFT Isaiah Peters MD 07/21/2013 86.74 ATTACH PEDICLE GRAFT Isaiah Peters MD 07/21/2013 33922 Postoperative follow-up visit, normally included in the surgical package, to indicate that an Isaiah 07/26/2013 94343 Surgical preparation or creation of recipient site by excision of open wounds, burn eschar, or scar Isaiah Chow 08/10/2013 74057 Surgical preparation or creation of recipient site by excision of open wounds, burn eschar, or scar Isaiah Chow 08/10/2013 78556 Split thickness autograft, trunk, arms, legs; first 100 sq cm or less, or one percent of body area o Isaiah Chow 08/10/2013 10563 Split graft, trunk, arms, legs; each additional 100 sq cm, or each additional one percent of body ar Isaiah Chow 08/10/2013 14807 Postoperative follow-up visit, normally included in the surgical package, to indicate that an Fransisco Dodd 08/26/2013 95487 Postoperative follow-up visit, normally included in the surgical package, to indicate that an Isaiah 09/01/2013 29033 Postoperative follow-up visit, normally included in the surgical package, to indicate that an Isaiah 09/21/2013 25415 Initial inpatient consultation for a new or established patient, which requires these three rao comp Isaiah Chow 09/30/2013 98934 Postoperative follow-up visit, normally included in the surgical package, to indicate that an Isaiah 10/08/2013 49372 Postoperative follow-up visit, normally included in the surgical package, to indicate that an Isaiah 10/22/2013 25247 Postoperative follow-up visit, normally included in the surgical package, to indicate that an Isaiah 10/27/2013 75347 Adjacent tissue transfer or rearrangement, eyelids, nose, ears and/or lips; defect 10.1 sq cm to 30. Isaiah Chow 11/19/2013 12872 Surgical preparation or creation of recipient site by excision of open wounds, burn eschar, or scar Isaiah Chow 11/19/2013 26096 Split thickness autograft, trunk, arms, legs; first 100 sq cm or less, or one percent of body area o Isaiah Chow 11/19/2013 87110 Split graft, trunk, arms, legs; each additional 100 sq cm, or each additional one percent of body ar Isaiah Chow 11/19/2013 76343 Office or other outpatient visit for the evaluation and management of an established patient, which Isaiah Chow 02/15/2014 23354 Puncture aspiration of abscess, hematoma, bulla, or cyst Isaiah Chow 03/09/2014 04860 Office or other outpatient visit for the evaluation and management of an established patient, which Isaiah Chow 03/09/2014 67481 Office or other outpatient visit for the evaluation and management of an established patient, which Isaiah Chow 05/13/2014 79655 Office or other outpatient visit for the evaluation and management of an established patient, which Isaiah Chow 06/30/2014 61022 Office or other outpatient visit for the evaluation and management of an established patient, which Isaiah Chow 09/23/2014 76558 Office or other outpatient visit for the evaluation and management of an established patient, which Isaiah Chow 11/28/2014 83468 Debridement; skin, subcutaneous tissue, muscle, and bone Isaiah Chow 02/23/2015 53641 Office or other outpatient visit for the evaluation and management of an established patient, which Isaiah Chow 03/14/2015 60804 Office or other outpatient visit for the evaluation and management of an established patient, which Isaiah Chow 05/19/2015 45255 Office or other outpatient visit for the evaluation and management of an established patient, which Isaiah Chow 06/14/2015 14757 Office or other outpatient visit for the evaluation and management of an established patient, which Isaiah Chow 08/28/2015 79468 Repair, complex, scalp, arms , and/or legs; 2.6 cm to 7.5 cm 10/05/2015 84049 Postoperative follow-up visit, normally included in the surgical package, to indicate that an Isaiah 10/25/2015 60269 Postoperative follow-up visit, normally included in the surgical package, to indicate that an Isaiah 11/14/2015 99479 Postoperative follow-up visit, normally included in the surgical package, to indicate that an evaluIsaiah Foote 11/15/2015 88588 Repair, complex, scalp, arms , and/or legs; 2.6 cm to 7.5 cm Isaiah Chow 12/06/2015 53158 Office or other outpatient visit for the evaluation and management of an established patient, which Isaiah Chow 01/22/2016 29641 Postoperative follow-up visit, normally included in the surgical package, to indicate that an Isaiah 01/24/2016 94829 Office or other outpatient visit for the evaluation and management of an established patient, which Isaiah Chow 03/13/2016 38518 Office or other outpatient visit for the evaluation and management of an established patient, which Isaiah Chow 03/13/2016 32227 Office or other outpatient visit for the evaluation and management of an established patient, which Isaiah Chow 03/19/2016 07443 Office or other outpatient visit for the evaluation and management of an established patient, which Isaiah Chow 04/02/2016 55361 Office or other outpatient visit for the evaluation and management of an established patient, which Isaiah Chow 05/14/2016 66570 Office or other outpatient visit for the evaluation and management of an established patient, which Isaiah Chow 05/23/2016 30892 Office or other outpatient visit for the evaluation and management of an established patient, which Isaiah Chow 05/23/2016 11143 Office or other outpatient visit for the evaluation and management of an established patient, which Isaiah Chow 06/05/2016 04563 Office or other outpatient visit for the evaluation and management of an established patient, which Isaiah Chow 07/04/2016 94731 Office or other outpatient visit for the evaluation and management of an established patient, which Isaiah Chow 07/11/2016 00538 Office or other outpatient visit for the evaluation and management of an established patient, which Isaiah Chow 08/09/2016 67163 Office or other outpatient visit for the evaluation and management of an established patient, which Isaiah Chow 09/26/2016 53455 Office or other outpatient visit for the evaluation and management of an established patient, which Isaiah Chow 10/07/2016 78957 Office or other outpatient visit for the evaluation and management of an established patient, which Isaiah Chow 10/28/2016 Results Test Result Range Wound Culture (Aerobic and Anaerobic) - 05/20/16 11:28 Wound Culture (Aerobic and Anaerobic) ... NRG [id number] - 02/25/18 07:34 Serum or plasma urea nitrogen measurement (mass/volume) 18 mg/dL 7-18 Serum or plasma creatinine measurement (mass/volume) 1.20 mg/dL 0.60-1.30 Serum or plasma urea nitrogen/creatinine mass ratio 15 NRG Serum or plasma creatinine measurement with calculation of estimated glomerular filtration rate 60 NRG Complete blood count (CBC) with automated white blood cell (WBC) differential - 03/02/18 12:07 Blood leukocytes automated count (number/volume) 7.5 10*3/uL 4.3-11.0 Blood erythrocytes automated count (number/volume) 4.93 10*6/uL 4.35-5.85 Venous blood hemoglobin measurement (mass/volume) 16.5 g/dL 13.3-17.7 Blood hematocrit (volume fraction) 46 % 40-54 Automated erythrocyte mean corpuscular volume 93 [foz_us] 80-99 Automated erythrocyte mean corpuscular hemoglobin (mass per erythrocyte) 34 pg 25-34 Automated erythrocyte mean corpuscular hemoglobin concentration measurement ( mass/volume) 36 g/dL 32-36 Automated erythrocyte distribution width ratio 13.8 % 10.0-14.5 Automated blood platelet count (count/volume) 240 10*3/uL 130-400 Automated blood platelet mean volume measurement 9.1 [foz_us] 7.4-10.4 Automated blood neutrophils/100 leukocytes 62 % 42-75 Automated blood lymphocytes/100 leukocytes 24 % 12-44 Blood monocytes/100 leukocytes 12 % 0-12 Automated blood eosinophils/100 leukocytes 1 % 0-10 Automated blood basophils/100 leukocytes 0 % 0-10 Blood neutrophils automated count (number/volume) 4.6 10*3 1.8-7.8 Blood lymphocytes automated count (number/volume) 1.8 10*3 1.0-4.0 Blood monocytes automated count (number/volume) 0.9 10*3 0.0-1.0 Automated eosinophil count 0.1 10*3/uL 0.0-0.3 Automated blood basophil count (count/volume) 0.0 10*3/uL 0.0-0.1 PT panel in platelet poor plasma by coagulation assay - 03/02/18 12:07 Prothrombin time (PT) in platelet poor plasma by coagulation assay 14.4 s 12.2-14.7 INR in platelet poor plasma or blood by coagulation assay 1.1 0.8-1.4 Arterial blood gas measurement - 03/02/18 12:25 Blood pCO2 38 mm[Hg] 35-45 Blood pO2 68 mm[Hg] 79-93 Arterial blood bicarbonate measurement (moles/volume) 23 mmol/L 23-27 Arterial blood base excess by calculation -1.8 mmol/L - 2.5-2.5 Arterial blood oxygen saturation measurement 95 % 94-100 * Inhaled oxygen flow rate ROOM AIR NRG Arterial blood pH measurement with patient temperature correction 7.39 7.37-7.43 Arterial blood carbon dioxide, total measurement (moles/volume) 23.9 mmol/L 21.0-31.0 Body site L RADIAL NRG Assessment of wrist artery patency prior to arterial puncture YES- POS NRG Setting of ventilation mode NO NRG Measurement of body temperature 97.0 NRG [id number] - 05/04/18 07:59 Serum or plasma urea nitrogen measurement (mass/volume) 18 mg/dL 7-18 Serum or plasma creatinine measurement (mass/volume) 1.22 mg/dL 0.60-1.30 Serum or plasma urea nitrogen/creatinine mass ratio 15 NRG Serum or plasma creatinine measurement with calculation of estimated glomerular filtration rate 59 NRG Complete blood count (CBC) with automated white blood cell (WBC) differential - 05/12/18 11:15 Blood leukocytes automated count (number/volume) 6.3 10*3/uL 4.3-11.0 Blood erythrocytes automated count (number/volume) 4.57 10*6/uL 4.35-5.85 Venous blood hemoglobin measurement (mass/volume) 15.5 g/dL 13.3-17.7 Blood hematocrit (volume fraction) 43 % 40-54 Automated erythrocyte mean corpuscular volume 93 [foz_us] 80-99 Automated erythrocyte mean corpuscular hemoglobin (mass per erythrocyte) 34 pg 25-34 Automated erythrocyte mean corpuscular hemoglobin concentration measurement ( mass/volume) 36 g/dL 32-36 Automated erythrocyte distribution width ratio 13.6 % 10.0-14.5 Automated blood platelet count (count/volume) 198 10*3/uL 130-400 Automated blood platelet mean volume measurement 9.4 [foz_us] 7.4-10.4 Automated blood neutrophils/100 leukocytes 57 % 42-75 Automated blood lymphocytes/100 leukocytes 33 % 12-44 Blood monocytes/100 leukocytes 8 % 0-12 Automated blood eosinophils/100 leukocytes 1 % 0-10 Automated blood basophils/100 leukocytes 0 % 0-10 Blood neutrophils automated count (number/volume) 3.6 10*3 1.8-7.8 Blood lymphocytes automated count (number/volume) 2.1 10*3 1.0-4.0 Blood monocytes automated count (number/volume) 0.5 10*3 0.0-1.0 Automated eosinophil count 0.1 10*3/uL 0.0-0.3 Automated blood basophil count (count/volume) 0.0 10*3/uL 0.0-0.1 Comprehensive metabolic panel - 05/12/18 11:15 Serum or plasma sodium measurement (moles/volume) 138 mmol/L 135-145 Serum or plasma potassium measurement (moles/volume) 4.5 mmol/L 3.6-5.0 Serum or plasma chloride measurement (moles/volume) 107 mmol/L 98-107 Carbon dioxide 21 mmol/L 21-32 Serum or plasma anion gap determination (moles/volume) 10 mmol/L 5-14 Serum or plasma urea nitrogen measurement (mass/volume) 18 mg/dL 7-18 Serum or plasma creatinine measurement (mass/volume) 1.28 mg/dL 0.60-1.30 Serum or plasma urea nitrogen/creatinine mass ratio 14 NRG Serum or plasma creatinine measurement with calculation of estimated glomerular filtration rate 56 NRG Serum or plasma glucose measurement (mass/volume) 147 mg/dL 70-105 Serum or plasma calcium measurement (mass/volume) 9.7 mg/dL 8.5-10.1 Serum or plasma total bilirubin measurement (mass/volume) 0.7 mg/dL 0.1-1.0 Serum or plasma alkaline phosphatase measurement (enzymatic activity/volume) 70 U/L 40-136 Serum or plasma aspartate aminotransferase measurement (enzymatic activity/ volume) 18 U/L 5-34 Serum or plasma alanine aminotransferase measurement (enzymatic activity/volume ) 22 U/L 0-55 Serum or plasma protein measurement (mass/volume) 8.0 g/dL 6.4-8.2 Serum or plasma albumin measurement (mass/volume) 4.3 g/dL 3.2-4.5 Sputum Gram stain - 05/14/18 08:30 GRAM STAIN SPUTUM NO WBC OBSERVED NRG Bacteria identification in bronchial specimen by aerobe culture - 05/14/18 08: 30 Bacteria identification in bronchial specimen by aerobe culture NORMAL NRG Mycobacterium species detection by organism specific culture - 05/14/18 08:30 Fungus culture - 05/14/18 08:30 Fungus culture NG NRG Methicillin resistant Staphylococcus aureus (MRSA) screening culture - 09:45 Methicillin resistant Staphylococcus aureus (MRSA) screening culture NEG NRG Encounters ACCT No. Visit Date/Time Discharge Status Pt. Type Provider Facility Loc./Unit Complaint [id number] 10/04/2015 09:55:00 Document Registration [id number] 07/21/2013 10:12:00 08/01/2013 11:39:00 DIS Inpatient Isaiah Chow MD Via [address] [id number] 06/22/2013 17:46:00 06/25/2013 10:12:00 DIS Inpatient Isaiah Chow MD Via [address] [id number] 12/03/2018 05:36:00 12/03/2018 12:13:00 DIS Outpatient FILEMON ALVARADO MD [facility] PREOP PORT REMOVAL [id number] 11/30/2018 09:56:00 11/30/2018 23:59:59 CLS Outpatient RAY THOMAS Via [facility] ONC [id number] 10/06/2018 13:54:00 10/18/2018 00:01:00 DIS Outpatient RAY THOMAS Via [facility] ONC [id number] 09/28/2018 10:12:00 09/28/2018 23:59:59 CLS Outpatient THAI BARBA [facility] RAD SQUAMOUS CELL CARCINOMA LUNG [id number] 09/08/2018 16:57:00 09/08/2018 23:59:59 CLS Preadmit ELIZABETH CONTRERAS APRN Via [facility] RT PULMONARY FIBROSIS [id number] 07/17/2018 09:23:00 07/20/2018 09:16:00 DIS Outpatient RAY THOMAS [facility] ONC [id number] 07/14/2018 10:19:00 07/14/2018 10:19:00 CAN Preadmit ELIZABETH CONTRERAS APRN Via [facility] PULM R06.00 [id number] 07/10/2018 09:00:00 07/10/2018 13:05:00 DIS Outpatient FILEMON ALVARADO MD [facility] SDC SCC OF LEFT UPPER LOBE/LUNG [id number] 07/08/2018 05:51:00 07/08/2018 10:40:00 DIS Outpatient CHRISTIANO MUSE, FILEMON M [facility] PREOP SCC LEFT UPPER LOBE /LUNG [id number] 05/19/2018 10:46:00 05/19/2018 23:59:59 CLS Outpatient DIANE, ELIZABETH E BULLION WEIGHER [facility] RAD HILAR LYMPHADENOPATHY,HEMOPTYSIS,LUNG CANCER [id number] 05/14/2018 06:58:00 05/14/2018 11:15:00 DIS Outpatient IRISH DIOP DO [facility] ENDO PULMONARY FIBROSIS/ HEMOPTYSIS/ABNORMAL CT/DYSPNEA [id number] 05/12/2018 11:00:00 05/12/2018 23:59:59 CLS Outpatient BRADEN CONTRERASINE E [employer]ULLION WEIGHER Via [facility] CARD PULMONARY FIBROSIS ,SMOKER,HEMOPTYSIS [id number] 05/12/2018 10:30:00 05/12/2018 10:44:00 DIS Outpatient IRISH DIOP DO [facility] PREOP BRONCHOSCOPY [id number] 05/08/2018 11:03:00 05/08/2018 23:59:59 CLS Preadmit DIANE, ELIZABETH E BULLION WEIGHER Via [facility] RAD PULMONARY FIBROSIS, HEMOPTYSIS,DYSPNEA,ABN CT SCAN [id number] 05/04/2018 07:49:00 05/04/2018 23:59:59 CLS Outpatient DIANE, ELIZABETH E BULLION WEIGHER Via [facility] RAD ABNORMAL CT SCAN OF LUNG [id number] 03/11/2018 09:16:00 03/11/2018 23:59:59 CLS Outpatient DIANE, ELIZABEHT E BULLION WEIGHER [facility] RT R06.00 DYSPNEA [id number] 03/02/2018 12:00:00 03/02/2018 23:59:59 CLS Preadmit DIANE, ELIZABETH E BULLION WEIGHER [facility] CARD R06.00 DYSPNEA [id number] 03/02/2018 11:50:00 03/02/2018 23:59:59 CLS Outpatient DIANE, ELIZABETH E BULLION WEIGHER [facility] LAB R04.2 [id number] 02/25/2018 07:25:00 02/25/2018 23:59:59 CLS Outpatient MARICARMEN RIVERA MD [facility] RAD HEMOPTYSIS [id number] 02/20/2018 07:33:00 02/20/2018 23:59:59 CLS Outpatient MARICARMEN RIVERA MD [facility] RAD HEMOPTYSIS [id number] 08/16/2016 06:55:00 08/16/2016 09:15:00 DIS Outpatient NATHANIEL SMITH MD [facility] SCREENING [id number] 08/14/2016 05:34:00 08/14/2016 09:01:00 DIS Outpatient NATHANIEL SMITH MD [facility] PREOP SCREENING [id number] 10/06/2015 07:40:00 10/06/2015 23:59:59 CLS Outpatient NATHANIEL SMITH MD [facility] PREOP COLONOSCOPY [id number] 01/02/2015 14:59:00 01/20/2015 15:00:00 DIS Outpatient MARICARMEN ANGELA MD [facility] WOUNDCARE [id number] 06/21/2013 18:53:00 06/22/2013 13:45:00 DIS Inpatient NATHANIEL SMITH MD Via [facility] 4TH 3RD DEGREE BURN [id number] 05/04/2013 08:07:00 05/04/2013 23:59:59 CLS Outpatient NATHANIEL SMITH MD [facility] RAD INCREASED COUGH,WHEEZING [id number] 12/04/2018 12:00:00 PEN PreadFILEMON Batres MD Via [facility] LUNG CANCER [id number] 12/21/2014 09:08:00 Document Registration [id number] 10/07/2016 16:42:14 10/07/2016 23:59:59 CLS Outpatient Isaiah Chow
--- NOTE | 2018-12-04 10:58 | Progress Note-Pre Operative ---
Pre-Operative Progress Note H&P Reviewed The H&P was reviewed, patient examined and no changes noted. Date Seen by Provider: Dec 02, 2018 Time Seen by Provider: 14:00 Date H&P Reviewed: Dec 04, 2018 Time H&P Reviewed: 10:58 Pre-Operative Diagnosis: wound dehiscence over infusaport FILEMON ALVARADO MD Dec 04, 2018 10:58
[2018-12-04] MEDS ORDERED: BUP/EPI 0.5% 1:200,000 (SENSORCAINE) 30 ML VIAL ONE (11:02)
[2018-12-04] MEDS ORDERED: proPOfol 200 MG/20 ML (DIPRIVAN) VIAL IV ONE (11:03)
[2018-12-04] MEDS ORDERED: LIDOCAINE PF 2% 5 ML (XYLOCAINE) VIAL ONE (11:03)
[2018-12-04] MEDS ORDERED: fentaNYL INJECTION 100 MCG/2 ML AMP ONE (11:04)
[2018-12-04] MEDS ORDERED: MIDAZOLAM 2 MG/2 ML (VERSED) VIAL ONE (11:04)
[2018-12-04] MEDS ORDERED: LACTATED RINGERS 1,000 ML IV PRN (11:27)
[2018-12-04] MEDS ORDERED: ceFAZolin 2 GM IV Premixed 50 ML IV ONE (11:30)
[2018-12-04] MEDS ORDERED: TRAM50TA2 PO (11:44)
--- NOTE | 2018-12-04 11:44 | Discharge Inst-Simple/Standard ---
Discharge Inst-Standard Discharge Medications New, Converted or Re-Newed RX: RX on Chart Patient Instructions/Follow Up Plan of Care/Instructions/FU: dressings off in 48 hours. Follow-up with my nurse in 10 days for suture removal removal Activity as Tolerated: Yes Discharge Diet: No Restrictions FILEMON ALVARADO MD Dec 04, 2018 11:44
--- NOTE | 2018-12-04 12:06 | Operative Report ---
Operative Report Date of Procedure/Surgery Dec 04, 2018 Surgeon (s) FILEMON ALVARADO MD Sole Polisher (s): N/A Post-Operative Diagnosis same Procedure Performed removal of an Lgomwg-c-Sgog Description of Procedure Anesthesia Type: General Estimated blood loss (mL): minimal Specimen(s) collected/removed none Description of the Procedure Indication for the procedure: This gentleman has been receiving systemic chemotherapy to manage carcinoma of the lung. The wound over the Qgdafk-o-Qciz along the right infraclavicular fossa dehisced and therefore removing the port was felt to be appropriate. Informed consent was obtained after reviewing the procedure in detail. Description of the procedure: He was placed supine on the operative table and our PROBE OPERATOR administered sedation, monitoring his vital signs. 2 g of Ancef were administered intravenously as prophylaxis against wound infection. Right infraclavicular fossa was prepared and draped in the usual sterile manner. Local anesthesia was achieved using 0.5 percent Marcaine with epinephrine. A secondary incision was made along the previous scar and the Mbdlnl-d-Tpxw removed, without risking air embolism. The pocket was irrigated with saline and the incision closed using interrupted 5-0 nylon sutures. He tolerated the procedure well and was taken to the recovery room in a stable condition. Findings of the Procedure See op report Allergies and Home Medications Allergies Coded Allergies: No Known Drug Allergies (Unverified , 08/14/16) Home Medications Albuterol Sulfate 1 Puff Puff, 2 PUFF IH Q4H PRN for WHEEZING, (Reported) 1 PUFF = 90 MCG Atorvastatin Calcium 20 Mg Tablet, 20 MG PO DAILY, (Reported) Fluticasone/Umeclidin/Vilanter 1 Each Blst.w.dev, 1 PUFF IH DAILY, (Reported) Omeprazole 40 Mg Capsule.dr, 40 MG PO DAILY PRN for HEARTBURN, (Reported) Tramadol HCl 50 Mg Tablet, 50 MG PO Q12H Prescribed by: FILEMON ALVARADO on 12/04/18 1144 Patient Home Medication List Home Medication List Reviewed: Yes FILEMON ALVARADO MD Dec 04, 2018 12:06
[2018-12-04] MEDS ORDERED: MEPERIDINE (DEMEROL) INJ 50 MG/ML IVP ONE (12:15)
[2018-12-04] MEDS ORDERED: ONDANSETRON 4 MG/2 ML (SDV) Z0FRAN IVP PRN (12:15)
[2018-12-04] MEDS ORDERED: morphine INJ 10 MG/ML 1ML (SYR OR VIAL) IVP ONE (12:15)
[2018-12-04 12:40] VITALS: BP 119/53
--- NOTE | 2018-12-04 13:04 | Anesthesia-General Post-Op ---
MAC Patient Condition Mental Status/LOC: Same as Preop Cardiovascular: Satisfactory Nausea/Vomiting: Absent Respiratory: Satisfactory Pain: Controlled Complications: Absent Post Op Complications Complications None Follow Up Care/Instructions Patient Instructions None needed. Anesthesiology Discharge Order Discharge Order Patient is doing well, no complaints, stable vital signs, no apparent adverse anesthesia problems. No complications reported per nursing. QUINCY VILLA CRNA Dec 04, 2018 13:04
[2018-12-04 13:10] VITALS: BP 114/60
[2018-12-04 13:20] VITALS: BP 114/60
== END 2018-12-04 13:25 | disposition home or self-care (01) ==
LOC: SDC 10:27
PROVIDERS: ATTEND Surgery
DX: T81.31XA Disruption of external operation (surgical) wound, not elsewhere classified, initial encounter (principal); C34.92 Malignant neoplasm of unspecified part of left bronchus or lung; J84.10 Pulmonary fibrosis, unspecified; I10 Essential (primary) hypertension; J44.9 Chronic obstructive pulmonary disease, unspecified; K21.9 Gastro-esophageal reflux disease without esophagitis; F17.210 Nicotine dependence, cigarettes, uncomplicated; G47.33 Obstructive sleep apnea (adult) (pediatric); Z79.899 Other long term (current) drug therapy; Z92.21 Personal history of antineoplastic chemotherapy
CPT/HCPCS: 87081

== ENCOUNTER 2019-01-04 08:59 | Outpatient (RCR) | payer BC ==
[2018-10-19 11:24] LABS: BASOPHILS % (AUTO) 0 % (0-10); EOSINOPHILS # (AUTO) 0.1 10^3/uL (0.0-0.3); EOSINOPHILS % (AUTO) 2 % (0-10); HEMATOCRIT 39 % (40-54); HEMOGLOBIN 13.6 G/DL (13.3-17.7); LYMPHOCYTES % (AUTO) 19 % (12-44); MEAN CORPUSCULAR HEMOGLOBIN 35 PG (25-34); MEAN CORPUSCULAR HGB CONC 35 G/DL (32-36); MEAN CORPUSCULAR VOLUME 100 FL (80-99); MEAN PLATELET VOLUME 8.6 FL (7.4-10.4); MONOCYTES # (AUTO) 0.4 X 10^3 (0.0-1.0); MONOCYTES % (AUTO) 8 % (0-12); NEUTROPHILS # (AUTO) 3.7 X 10^3 (1.8-7.8); NEUTROPHILS % (AUTO) 71 % (42-75); PLATELET COUNT 215 10^3/uL (130-400); RED CELL DISTRIBUTION WIDTH 14.2 % (10.0-14.5); WHITE BLOOD COUNT 5.2 10^3/uL (4.3-11.0)
[2018-10-19 11:54] LABS: ALANINE AMINOTRANSFERASE 21 U/L (0-55); ALKALINE PHOSPHATASE 79 U/L (40-136); BILIRUBIN,TOTAL 0.6 MG/DL (0.1-1.0); BUN/CREATININE RATIO 13; CALCIUM 9.4 MG/DL (8.5-10.1); CARBON DIOXIDE 21 MMOL/L (21-32); CHLORIDE 105 MMOL/L (98-107); CREATININE SERUM 1.19 MG/DL (0.60-1.30); GFR ESTIMATED > 60; GLUCOSE 181 MG/DL (70-105); POTASSIUM 3.8 MMOL/L (3.6-5.0); SODIUM 136 MMOL/L (135-145); TOTAL PROTEIN 7.3 GM/DL (6.4-8.2)
[2018-11-02 09:48] LABS: BASOPHILS % (AUTO) 0 % (0-10); EOSINOPHILS # (AUTO) 0.1 10^3/uL (0.0-0.3); EOSINOPHILS % (AUTO) 2 % (0-10); HEMATOCRIT 41 % (40-54); HEMOGLOBIN 14.2 G/DL (13.3-17.7); LYMPHOCYTES # (AUTO) 1.1 X 10^3 (1.0-4.0); LYMPHOCYTES % (AUTO) 21 % (12-44); MEAN CORPUSCULAR HEMOGLOBIN 34 PG (25-34); MEAN CORPUSCULAR HGB CONC 35 G/DL (32-36); MEAN CORPUSCULAR VOLUME 99 FL (80-99); MEAN PLATELET VOLUME 8.5 FL (7.4-10.4); MONOCYTES # (AUTO) 0.7 X 10^3 (0.0-1.0); MONOCYTES % (AUTO) 12 % (0-12); NEUTROPHILS # (AUTO) 3.5 X 10^3 (1.8-7.8); NEUTROPHILS % (AUTO) 65 % (42-75); PLATELET COUNT 223 10^3/uL (130-400); RED CELL DISTRIBUTION WIDTH 13.3 % (10.0-14.5); WHITE BLOOD COUNT 5.4 10^3/uL (4.3-11.0)
[2018-11-02 10:17] LABS: ALANINE AMINOTRANSFERASE 19 U/L (0-55); ALBUMIN 4.1 GM/DL (3.2-4.5); ALKALINE PHOSPHATASE 78 U/L (40-136); BILIRUBIN,TOTAL 0.5 MG/DL (0.1-1.0); BUN/CREATININE RATIO 16; CALCIUM 9.6 MG/DL (8.5-10.1); CARBON DIOXIDE 22 MMOL/L (21-32); CHLORIDE 105 MMOL/L (98-107); CREATININE SERUM 1.11 MG/DL (0.60-1.30); GFR ESTIMATED > 60; GLUCOSE 102 MG/DL (70-105); SODIUM 139 MMOL/L (135-145); TOTAL PROTEIN 7.4 GM/DL (6.4-8.2)
[2018-11-16 09:16] LABS: BASOPHILS % (AUTO) 0 % (0-10); EOSINOPHILS # (AUTO) 0.1 10^3/uL (0.0-0.3); EOSINOPHILS % (AUTO) 1 % (0-10); HEMATOCRIT 41 % (40-54); HEMOGLOBIN 14.3 G/DL (13.3-17.7); LYMPHOCYTES # (AUTO) 1.1 X 10^3 (1.0-4.0); LYMPHOCYTES % (AUTO) 20 % (12-44); MEAN CORPUSCULAR HEMOGLOBIN 34 PG (25-34); MEAN CORPUSCULAR HGB CONC 35 G/DL (32-36); MEAN CORPUSCULAR VOLUME 97 FL (80-99); MEAN PLATELET VOLUME 8.8 FL (7.4-10.4); MONOCYTES # (AUTO) 0.4 X 10^3 (0.0-1.0); MONOCYTES % (AUTO) 8 % (0-12); NEUTROPHILS # (AUTO) 3.8 X 10^3 (1.8-7.8); NEUTROPHILS % (AUTO) 70 % (42-75); PLATELET COUNT 213 10^3/uL (130-400); RED CELL DISTRIBUTION WIDTH 12.6 % (10.0-14.5); WHITE BLOOD COUNT 5.4 10^3/uL (4.3-11.0)
[2018-11-16 09:41] LABS: ALANINE AMINOTRANSFERASE 38 U/L (0-55); ALBUMIN 3.9 GM/DL (3.2-4.5); ALKALINE PHOSPHATASE 74 U/L (40-136); BILIRUBIN,TOTAL 0.4 MG/DL (0.1-1.0); BUN/CREATININE RATIO 16; CALCIUM 9.4 MG/DL (8.5-10.1); CARBON DIOXIDE 22 MMOL/L (21-32); CHLORIDE 104 MMOL/L (98-107); CREATININE SERUM 1.09 MG/DL (0.60-1.30); GFR ESTIMATED > 60; GLUCOSE 143 MG/DL (70-105); POTASSIUM 3.9 MMOL/L (3.6-5.0); SODIUM 137 MMOL/L (135-145)
[2018-11-30 10:18] LABS: BASOPHILS % (AUTO) 0 % (0-10); EOSINOPHILS # (AUTO) 0.1 10^3/uL (0.0-0.3); EOSINOPHILS % (AUTO) 2 % (0-10); HEMATOCRIT 41 % (40-54); HEMOGLOBIN 14.8 G/DL (13.3-17.7); LYMPHOCYTES % (AUTO) 19 % (12-44); MEAN CORPUSCULAR HEMOGLOBIN 34 PG (25-34); MEAN CORPUSCULAR HGB CONC 36 G/DL (32-36); MEAN CORPUSCULAR VOLUME 95 FL (80-99); MEAN PLATELET VOLUME 8.7 FL (7.4-10.4); MONOCYTES # (AUTO) 0.4 X 10^3 (0.0-1.0); MONOCYTES % (AUTO) 9 % (0-12); NEUTROPHILS # (AUTO) 3.5 X 10^3 (1.8-7.8); NEUTROPHILS % (AUTO) 70 % (42-75); PLATELET COUNT 222 10^3/uL (130-400); RED CELL DISTRIBUTION WIDTH 12.4 % (10.0-14.5); WHITE BLOOD COUNT 5.1 10^3/uL (4.3-11.0)
[2018-11-30 10:46] LABS: ALANINE AMINOTRANSFERASE 64 U/L (0-55); ALBUMIN 3.7 GM/DL (3.2-4.5); ALKALINE PHOSPHATASE 66 U/L (40-136); BILIRUBIN,TOTAL 0.5 MG/DL (0.1-1.0); BUN/CREATININE RATIO 18; CALCIUM 9.4 MG/DL (8.5-10.1); CARBON DIOXIDE 25 MMOL/L (21-32); CHLORIDE 102 MMOL/L (98-107); CREATININE SERUM 1.08 MG/DL (0.60-1.30); GFR ESTIMATED > 60; GLUCOSE 127 MG/DL (70-105); POTASSIUM 4.2 MMOL/L (3.6-5.0); SODIUM 138 MMOL/L (135-145); TOTAL PROTEIN 6.7 GM/DL (6.4-8.2)
[2018-12-21 10:11] LABS: BASOPHILS % (AUTO) 0 % (0-10); EOSINOPHILS # (AUTO) 0.1 10^3/uL (0.0-0.3); EOSINOPHILS % (AUTO) 2 % (0-10); HEMATOCRIT 44 % (40-54); HEMOGLOBIN 14.8 G/DL (13.3-17.7); LYMPHOCYTES # (AUTO) 0.9 X 10^3 (1.0-4.0); LYMPHOCYTES % (AUTO) 17 % (12-44); MEAN CORPUSCULAR HEMOGLOBIN 33 PG (25-34); MEAN CORPUSCULAR HGB CONC 34 G/DL (32-36); MEAN CORPUSCULAR VOLUME 96 FL (80-99); MONOCYTES # (AUTO) 0.6 X 10^3 (0.0-1.0); MONOCYTES % (AUTO) 11 % (0-12); NEUTROPHILS # (AUTO) 3.7 X 10^3 (1.8-7.8); NEUTROPHILS % (AUTO) 70 % (42-75); PLATELET COUNT 215 10^3/uL (130-400); RED CELL DISTRIBUTION WIDTH 13.2 % (10.0-14.5); WHITE BLOOD COUNT 5.3 10^3/uL (4.3-11.0)
[2018-12-21 10:32] LABS: ALANINE AMINOTRANSFERASE 38 U/L (0-55); ALBUMIN 3.9 GM/DL (3.2-4.5); ALKALINE PHOSPHATASE 67 U/L (40-136); BILIRUBIN,TOTAL 0.4 MG/DL (0.1-1.0); BUN/CREATININE RATIO 18; CALCIUM 9.9 MG/DL (8.5-10.1); CARBON DIOXIDE 24 MMOL/L (21-32); CHLORIDE 103 MMOL/L (98-107); CREATININE SERUM 1.05 MG/DL (0.60-1.30); GFR ESTIMATED > 60; GLUCOSE 121 MG/DL (70-105); SODIUM 136 MMOL/L (135-145); TOTAL PROTEIN 7.2 GM/DL (6.4-8.2)
[2018-12-21 10:35] LABS: POTASSIUM 4.7 MMOL/L (3.6-5.0)
[~2019-01-04] VITALS: Ht 186.7 cm; Wt 117.0 kg
[~2019-01-04 08:59] MED LIST changes: +DURVALUMAB IV SCH; +NS IV 1000 ML (CANCER CTR) IV SCH; +NS IV 500 ML (CANCER CENTER) 500 ML ONE; +NS IV SCH; +TRAM50TA2 PO
[2019-01-04 09:15] LABS: BASOPHILS % (AUTO) 0 % (0-10); EOSINOPHILS # (AUTO) 0.1 10^3/uL (0.0-0.3); EOSINOPHILS % (AUTO) 2 % (0-10); HEMATOCRIT 45 % (40-54); LYMPHOCYTES # (AUTO) 1.1 X 10^3 (1.0-4.0); LYMPHOCYTES % (AUTO) 17 % (12-44); MEAN CORPUSCULAR HEMOGLOBIN 34 PG (25-34); MEAN CORPUSCULAR HGB CONC 35 G/DL (32-36); MEAN CORPUSCULAR VOLUME 95 FL (80-99); MEAN PLATELET VOLUME 8.9 FL (7.4-10.4); MONOCYTES # (AUTO) 0.5 X 10^3 (0.0-1.0); MONOCYTES % (AUTO) 8 % (0-12); NEUTROPHILS # (AUTO) 4.4 X 10^3 (1.8-7.8); NEUTROPHILS % (AUTO) 72 % (42-75); PLATELET COUNT 213 10^3/uL (130-400); RED CELL DISTRIBUTION WIDTH 13.7 % (10.0-14.5); WHITE BLOOD COUNT 6.1 10^3/uL (4.3-11.0)
[2019-01-04] MEDS ORDERED: NS IV 500 ML (CANCER CENTER) 500 ML ONE (09:42)
[2019-01-04 09:43] LABS: ALANINE AMINOTRANSFERASE 31 U/L (0-55); ALKALINE PHOSPHATASE 64 U/L (40-136); BILIRUBIN,TOTAL 0.3 MG/DL (0.1-1.0); BUN/CREATININE RATIO 17; CALCIUM 9.4 MG/DL (8.5-10.1); CARBON DIOXIDE 24 MMOL/L (21-32); CHLORIDE 101 MMOL/L (98-107); CREATININE SERUM 1.11 MG/DL (0.60-1.30); GFR ESTIMATED > 60; GLUCOSE 131 MG/DL (70-105); SODIUM 137 MMOL/L (135-145)
== END 2019-01-17 | disposition home or self-care (01) ==
LOC: ONC 08:59
PROVIDERS: ATTEND Internal Medicine Hematology & Oncology
DX: Z51.11 Encounter for antineoplastic chemotherapy (principal); C34.12 Malignant neoplasm of upper lobe, left bronchus or lung; I10 Essential (primary) hypertension; K21.9 Gastro-esophageal reflux disease without esophagitis; Z79.899 Other long term (current) drug therapy
CPT/HCPCS: 36415; 36591; 80053; 84443; 85025; 96413; 99213

== ENCOUNTER 2019-04-12 08:56 | Outpatient (RCR) | payer BC ==
[2019-01-18 10:17] LABS: BASOPHILS % (AUTO) 0 % (0-10); EOSINOPHILS # (AUTO) 0.1 10^3/uL (0.0-0.3); EOSINOPHILS % (AUTO) 1 % (0-10); HEMATOCRIT 45 % (40-54); HEMOGLOBIN 15.7 G/DL (13.3-17.7); LYMPHOCYTES % (AUTO) 18 % (12-44); MEAN CORPUSCULAR HEMOGLOBIN 33 PG (25-34); MEAN CORPUSCULAR HGB CONC 35 G/DL (32-36); MEAN CORPUSCULAR VOLUME 95 FL (80-99); MEAN PLATELET VOLUME 8.8 FL (7.4-10.4); MONOCYTES # (AUTO) 0.5 X 10^3 (0.0-1.0); MONOCYTES % (AUTO) 9 % (0-12); NEUTROPHILS # (AUTO) 3.7 X 10^3 (1.8-7.8); NEUTROPHILS % (AUTO) 71 % (42-75); PLATELET COUNT 209 10^3/uL (130-400); RED CELL DISTRIBUTION WIDTH 13.9 % (10.0-14.5); WHITE BLOOD COUNT 5.2 10^3/uL (4.3-11.0)
[2019-01-18 10:39] LABS: ALANINE AMINOTRANSFERASE 29 U/L (0-55); ALBUMIN 3.9 GM/DL (3.2-4.5); ALKALINE PHOSPHATASE 66 U/L (40-136); BILIRUBIN,TOTAL 0.3 MG/DL (0.1-1.0); BUN/CREATININE RATIO 14; CALCIUM 9.6 MG/DL (8.5-10.1); CARBON DIOXIDE 22 MMOL/L (21-32); CHLORIDE 103 MMOL/L (98-107); CREATININE SERUM 1.12 MG/DL (0.60-1.30); GFR ESTIMATED > 60; GLUCOSE 121 MG/DL (70-105); POTASSIUM 4.3 MMOL/L (3.6-5.0); SODIUM 137 MMOL/L (135-145); TOTAL PROTEIN 7.2 GM/DL (6.4-8.2)
[2019-02-01 09:40] LABS: BASOPHILS % (AUTO) 1 % (0-10); EOSINOPHILS # (AUTO) 0.1 10^3/uL (0.0-0.3); EOSINOPHILS % (AUTO) 1 % (0-10); HEMATOCRIT 43 % (40-54); LYMPHOCYTES # (AUTO) 0.9 X 10^3 (1.0-4.0); LYMPHOCYTES % (AUTO) 21 % (12-44); MEAN CORPUSCULAR HEMOGLOBIN 33 PG (25-34); MEAN CORPUSCULAR HGB CONC 35 G/DL (32-36); MEAN CORPUSCULAR VOLUME 94 FL (80-99); MEAN PLATELET VOLUME 8.6 FL (7.4-10.4); MONOCYTES # (AUTO) 0.5 X 10^3 (0.0-1.0); MONOCYTES % (AUTO) 12 % (0-12); NEUTROPHILS # (AUTO) 2.8 X 10^3 (1.8-7.8); NEUTROPHILS % (AUTO) 65 % (42-75); PLATELET COUNT 201 10^3/uL (130-400); RED CELL DISTRIBUTION WIDTH 14.4 % (10.0-14.5); WHITE BLOOD COUNT 4.3 10^3/uL (4.3-11.0)
[2019-02-01 09:58] LABS: ALANINE AMINOTRANSFERASE 23 U/L (0-55); ALKALINE PHOSPHATASE 59 U/L (40-136); BILIRUBIN,TOTAL 0.5 MG/DL (0.1-1.0); BUN/CREATININE RATIO 15; CALCIUM 9.5 MG/DL (8.5-10.1); CARBON DIOXIDE 25 MMOL/L (21-32); CHLORIDE 106 MMOL/L (98-107); CREATININE SERUM 0.98 MG/DL (0.60-1.30); GFR ESTIMATED > 60; GLUCOSE 104 MG/DL (70-105); POTASSIUM 4.3 MMOL/L (3.6-5.0); SODIUM 139 MMOL/L (135-145); TOTAL PROTEIN 6.8 GM/DL (6.4-8.2)
[2019-02-15 09:37] LABS: BASOPHILS % (AUTO) 0 % (0-10); EOSINOPHILS # (AUTO) 0.1 10^3/uL (0.0-0.3); EOSINOPHILS % (AUTO) 2 % (0-10); HEMATOCRIT 44 % (40-54); HEMOGLOBIN 15.2 G/DL (13.3-17.7); LYMPHOCYTES % (AUTO) 21 % (12-44); MEAN CORPUSCULAR HEMOGLOBIN 32 PG (25-34); MEAN CORPUSCULAR HGB CONC 35 G/DL (32-36); MEAN CORPUSCULAR VOLUME 94 FL (80-99); MEAN PLATELET VOLUME 8.9 FL (7.4-10.4); MONOCYTES # (AUTO) 0.7 X 10^3 (0.0-1.0); MONOCYTES % (AUTO) 15 % (0-12); NEUTROPHILS # (AUTO) 2.9 X 10^3 (1.8-7.8); NEUTROPHILS % (AUTO) 62 % (42-75); PLATELET COUNT 195 10^3/uL (130-400); RED CELL DISTRIBUTION WIDTH 14.1 % (10.0-14.5); WHITE BLOOD COUNT 4.7 10^3/uL (4.3-11.0)
[2019-02-15 10:15] LABS: BUN/CREATININE RATIO 16; CALCIUM 9.5 MG/DL (8.5-10.1); CARBON DIOXIDE 21 MMOL/L (21-32); CHLORIDE 104 MMOL/L (98-107); CREATININE SERUM 1.07 MG/DL (0.60-1.30); GFR ESTIMATED > 60; GLUCOSE 104 MG/DL (70-105); POTASSIUM 4.5 MMOL/L (3.6-5.0); SODIUM 135 MMOL/L (135-145)
[2019-03-01 09:49] LABS: BASOPHILS % (AUTO) 0 % (0-10); EOSINOPHILS # (AUTO) 0.1 10^3/uL (0.0-0.3); EOSINOPHILS % (AUTO) 2 % (0-10); HEMATOCRIT 47 % (40-54); LYMPHOCYTES # (AUTO) 1.1 X 10^3 (1.0-4.0); LYMPHOCYTES % (AUTO) 22 % (12-44); MEAN CORPUSCULAR HEMOGLOBIN 32 PG (25-34); MEAN CORPUSCULAR HGB CONC 34 G/DL (32-36); MEAN CORPUSCULAR VOLUME 93 FL (80-99); MEAN PLATELET VOLUME 8.9 FL (7.4-10.4); MONOCYTES # (AUTO) 0.6 X 10^3 (0.0-1.0); MONOCYTES % (AUTO) 11 % (0-12); NEUTROPHILS # (AUTO) 3.4 X 10^3 (1.8-7.8); NEUTROPHILS % (AUTO) 65 % (42-75); PLATELET COUNT 210 10^3/uL (130-400); RED CELL DISTRIBUTION WIDTH 14.6 % (10.0-14.5); WHITE BLOOD COUNT 5.2 10^3/uL (4.3-11.0)
[2019-03-01 10:12] LABS: ALBUMIN 4.1 GM/DL (3.2-4.5); BILIRUBIN,TOTAL 0.5 MG/DL (0.1-1.0); CALCIUM 9.8 MG/DL (8.5-10.1); CREATININE SERUM 1.22 MG/DL (0.60-1.30); POTASSIUM 4.6 MMOL/L (3.6-5.0); TOTAL PROTEIN 7.4 GM/DL (6.4-8.2)
[2019-03-16 13:18] LABS: BASOPHILS % (AUTO) 1 % (0-10); EOSINOPHILS # (AUTO) 0.1 10^3/uL (0.0-0.3); EOSINOPHILS % (AUTO) 2 % (0-10); HEMATOCRIT 41 % (40-54); HEMOGLOBIN 14.5 G/DL (13.3-17.7); LYMPHOCYTES % (AUTO) 16 % (12-44); MEAN CORPUSCULAR HEMOGLOBIN 33 PG (25-34); MEAN CORPUSCULAR HGB CONC 35 G/DL (32-36); MEAN CORPUSCULAR VOLUME 93 FL (80-99); MEAN PLATELET VOLUME 8.9 FL (7.4-10.4); MONOCYTES # (AUTO) 0.6 X 10^3 (0.0-1.0); MONOCYTES % (AUTO) 10 % (0-12); NEUTROPHILS # (AUTO) 4.5 X 10^3 (1.8-7.8); NEUTROPHILS % (AUTO) 72 % (42-75); PLATELET COUNT 222 10^3/uL (130-400); RED CELL DISTRIBUTION WIDTH 14.2 % (10.0-14.5); WHITE BLOOD COUNT 6.3 10^3/uL (4.3-11.0)
[2019-03-16 13:31] LABS: BUN/CREATININE RATIO 15; CALCIUM 9.3 MG/DL (8.5-10.1); CARBON DIOXIDE 25 MMOL/L (21-32); CHLORIDE 106 MMOL/L (98-107); CREATININE SERUM 1.08 MG/DL (0.60-1.30); GFR ESTIMATED > 60; GLUCOSE 125 MG/DL (70-105); POTASSIUM 4.1 MMOL/L (3.6-5.0); SODIUM 138 MMOL/L (135-145)
[2019-03-29 09:22] LABS: BASOPHILS % (AUTO) 1 % (0-10); EOSINOPHILS # (AUTO) 0.2 10^3/uL (0.0-0.3); EOSINOPHILS % (AUTO) 3 % (0-10); HEMATOCRIT 44 % (40-54); HEMOGLOBIN 15.2 G/DL (13.3-17.7); LYMPHOCYTES # (AUTO) 1.2 X 10^3 (1.0-4.0); LYMPHOCYTES % (AUTO) 21 % (12-44); MEAN CORPUSCULAR HEMOGLOBIN 32 PG (25-34); MEAN CORPUSCULAR HGB CONC 34 G/DL (32-36); MEAN CORPUSCULAR VOLUME 94 FL (80-99); MEAN PLATELET VOLUME 8.7 FL (7.4-10.4); MONOCYTES # (AUTO) 0.7 X 10^3 (0.0-1.0); MONOCYTES % (AUTO) 13 % (0-12); NEUTROPHILS # (AUTO) 3.5 X 10^3 (1.8-7.8); NEUTROPHILS % (AUTO) 63 % (42-75); PLATELET COUNT 217 10^3/uL (130-400); RED CELL DISTRIBUTION WIDTH 14.1 % (10.0-14.5); WHITE BLOOD COUNT 5.6 10^3/uL (4.3-11.0)
[2019-03-29 09:43] LABS: BILIRUBIN,TOTAL 0.4 MG/DL (0.1-1.0); CALCIUM 9.9 MG/DL (8.5-10.1); CREATININE SERUM 1.23 MG/DL (0.60-1.30); POTASSIUM 4.5 MMOL/L (3.6-5.0); TOTAL PROTEIN 7.2 GM/DL (6.4-8.2)
[2019-03-29 10:08] LABS: FREE T4 (FREE THYROXINE) 0.82 NG/DL (0.70-1.48)
[~2019-04-12] VITALS: Ht 186.7 cm; Wt 112.9 kg
[~2019-04-12 08:56] MED LIST changes: -NS IV 1000 ML (CANCER CTR) IV SCH; -NS IV 500 ML (CANCER CENTER) 500 ML ONE; +NS IV 500 ML (CANCER CENTER) IV SCH
[2019-04-12 09:26] LABS: BASOPHILS % (AUTO) 1 % (0-10); EOSINOPHILS # (AUTO) 0.2 10^3/uL (0.0-0.3); EOSINOPHILS % (AUTO) 3 % (0-10); HEMATOCRIT 43 % (40-54); HEMOGLOBIN 14.6 G/DL (13.3-17.7); LYMPHOCYTES % (AUTO) 21 % (12-44); MEAN CORPUSCULAR HEMOGLOBIN 32 PG (25-34); MEAN CORPUSCULAR HGB CONC 34 G/DL (32-36); MEAN CORPUSCULAR VOLUME 94 FL (80-99); MEAN PLATELET VOLUME 8.9 FL (7.4-10.4); MONOCYTES # (AUTO) 0.7 X 10^3 (0.0-1.0); MONOCYTES % (AUTO) 14 % (0-12); NEUTROPHILS # (AUTO) 2.9 X 10^3 (1.8-7.8); NEUTROPHILS % (AUTO) 61 % (42-75); PLATELET COUNT 204 10^3/uL (130-400); RED CELL DISTRIBUTION WIDTH 14.4 % (10.0-14.5); WHITE BLOOD COUNT 4.8 10^3/uL (4.3-11.0)
[2019-04-12 09:42] LABS: BUN/CREATININE RATIO 14; CALCIUM 9.6 MG/DL (8.5-10.1); CARBON DIOXIDE 23 MMOL/L (21-32); CHLORIDE 105 MMOL/L (98-107); CREATININE SERUM 1.02 MG/DL (0.60-1.30); GFR ESTIMATED > 60; GLUCOSE 101 MG/DL (70-105); POTASSIUM 4.3 MMOL/L (3.6-5.0); SODIUM 139 MMOL/L (135-145)
== END 2019-04-18 | disposition home or self-care (01) ==
LOC: ONC 08:56
PROVIDERS: ATTEND Internal Medicine Hematology & Oncology
DX: Z51.11 Encounter for antineoplastic chemotherapy (principal); C34.12 Malignant neoplasm of upper lobe, left bronchus or lung; I10 Essential (primary) hypertension; K21.9 Gastro-esophageal reflux disease without esophagitis; Z79.899 Other long term (current) drug therapy
CPT/HCPCS: 36415; 80048; 80053; 84439; 84443; 85025; 96413

== ENCOUNTER 2019-07-19 08:57 | Outpatient (RCR) | payer BC ==
[2019-04-26 15:12] LABS: BASOPHILS % (AUTO) 0 % (0-10); EOSINOPHILS # (AUTO) 0.1 10^3/uL (0.0-0.3); EOSINOPHILS % (AUTO) 2 % (0-10); HEMATOCRIT 42 % (40-54); HEMOGLOBIN 14.6 G/DL (13.3-17.7); LYMPHOCYTES % (AUTO) 17 % (12-44); MEAN CORPUSCULAR HEMOGLOBIN 32 PG (25-34); MEAN CORPUSCULAR HGB CONC 34 G/DL (32-36); MEAN CORPUSCULAR VOLUME 94 FL (80-99); MEAN PLATELET VOLUME 8.7 FL (7.4-10.4); MONOCYTES # (AUTO) 0.7 X 10^3 (0.0-1.0); MONOCYTES % (AUTO) 12 % (0-12); NEUTROPHILS # (AUTO) 4.2 X 10^3 (1.8-7.8); NEUTROPHILS % (AUTO) 69 % (42-75); PLATELET COUNT 214 10^3/uL (130-400); RED CELL DISTRIBUTION WIDTH 14.5 % (10.0-14.5)
[2019-04-26 15:54] LABS: BILIRUBIN,TOTAL 0.4 MG/DL (0.1-1.0); CALCIUM 9.5 MG/DL (8.5-10.1); CREATININE SERUM 1.29 MG/DL (0.60-1.30); POTASSIUM 4.1 MMOL/L (3.6-5.0); TOTAL PROTEIN 6.9 GM/DL (6.4-8.2)
[2019-05-10 11:34] LABS: BASOPHILS % (AUTO) 1 % (0-10); EOSINOPHILS # (AUTO) 0.1 10^3/uL (0.0-0.3); EOSINOPHILS % (AUTO) 1 % (0-10); HEMATOCRIT 43 % (40-54); HEMOGLOBIN 14.7 G/DL (13.3-17.7); LYMPHOCYTES # (AUTO) 0.9 X 10^3 (1.0-4.0); LYMPHOCYTES % (AUTO) 18 % (12-44); MEAN CORPUSCULAR HEMOGLOBIN 33 PG (25-34); MEAN CORPUSCULAR HGB CONC 35 G/DL (32-36); MEAN CORPUSCULAR VOLUME 94 FL (80-99); MEAN PLATELET VOLUME 9.1 FL (7.4-10.4); MONOCYTES # (AUTO) 0.6 X 10^3 (0.0-1.0); MONOCYTES % (AUTO) 11 % (0-12); NEUTROPHILS # (AUTO) 3.6 X 10^3 (1.8-7.8); NEUTROPHILS % (AUTO) 69 % (42-75); PLATELET COUNT 199 10^3/uL (130-400); RED CELL DISTRIBUTION WIDTH 14.3 % (10.0-14.5); WHITE BLOOD COUNT 5.2 10^3/uL (4.3-11.0)
[2019-05-10 11:49] LABS: BUN/CREATININE RATIO 15; CALCIUM 9.4 MG/DL (8.5-10.1); CARBON DIOXIDE 24 MMOL/L (21-32); CHLORIDE 107 MMOL/L (98-107); CREATININE SERUM 1.17 MG/DL (0.60-1.30); GFR ESTIMATED > 60; GLUCOSE 107 MG/DL (70-105); POTASSIUM 4.1 MMOL/L (3.6-5.0); SODIUM 141 MMOL/L (135-145)
[2019-05-24 09:50] LABS: BASOPHILS % (AUTO) 0 % (0-10); EOSINOPHILS # (AUTO) 0.1 10^3/uL (0.0-0.3); EOSINOPHILS % (AUTO) 2 % (0-10); HEMATOCRIT 43 % (40-54); HEMOGLOBIN 14.6 G/DL (13.3-17.7); LYMPHOCYTES # (AUTO) 1.1 X 10^3 (1.0-4.0); LYMPHOCYTES % (AUTO) 22 % (12-44); MEAN CORPUSCULAR HEMOGLOBIN 32 PG (25-34); MEAN CORPUSCULAR HGB CONC 34 G/DL (32-36); MEAN CORPUSCULAR VOLUME 95 FL (80-99); MEAN PLATELET VOLUME 8.9 FL (7.4-10.4); MONOCYTES # (AUTO) 0.5 X 10^3 (0.0-1.0); MONOCYTES % (AUTO) 10 % (0-12); NEUTROPHILS # (AUTO) 3.1 X 10^3 (1.8-7.8); NEUTROPHILS % (AUTO) 66 % (42-75); PLATELET COUNT 210 10^3/uL (130-400); RED CELL DISTRIBUTION WIDTH 14.3 % (10.0-14.5); WHITE BLOOD COUNT 4.7 10^3/uL (4.3-11.0)
[2019-05-24 10:12] LABS: ALBUMIN 3.8 GM/DL (3.2-4.5); BILIRUBIN,TOTAL 0.5 MG/DL (0.1-1.0); CALCIUM 9.5 MG/DL (8.5-10.1); CREATININE SERUM 1.32 MG/DL (0.60-1.30); POTASSIUM 4.2 MMOL/L (3.6-5.0); TOTAL PROTEIN 7.4 GM/DL (6.4-8.2)
[2019-06-07 09:19] LABS: BASOPHILS % (AUTO) 1 % (0-10); EOSINOPHILS # (AUTO) 0.1 10^3/uL (0.0-0.3); EOSINOPHILS % (AUTO) 2 % (0-10); HEMATOCRIT 44 % (40-54); LYMPHOCYTES # (AUTO) 1.2 X 10^3 (1.0-4.0); LYMPHOCYTES % (AUTO) 23 % (12-44); MEAN CORPUSCULAR HEMOGLOBIN 33 PG (25-34); MEAN CORPUSCULAR HGB CONC 34 G/DL (32-36); MEAN CORPUSCULAR VOLUME 95 FL (80-99); MEAN PLATELET VOLUME 8.9 FL (7.4-10.4); MONOCYTES # (AUTO) 0.6 X 10^3 (0.0-1.0); MONOCYTES % (AUTO) 12 % (0-12); NEUTROPHILS # (AUTO) 3.2 X 10^3 (1.8-7.8); NEUTROPHILS % (AUTO) 63 % (42-75); PLATELET COUNT 201 10^3/uL (130-400); RED CELL DISTRIBUTION WIDTH 14.5 % (10.0-14.5)
[2019-06-07 09:38] LABS: CALCIUM 9.6 MG/DL (8.5-10.1); CREATININE SERUM 1.29 MG/DL (0.60-1.30); POTASSIUM 4.5 MMOL/L (3.6-5.0)
[2019-06-22 09:20] LABS: BASOPHILS % (AUTO) 0 % (0-10); EOSINOPHILS # (AUTO) 0.1 10^3/uL (0.0-0.3); EOSINOPHILS % (AUTO) 2 % (0-10); HEMATOCRIT 43 % (40-54); HEMOGLOBIN 14.6 G/DL (13.3-17.7); LYMPHOCYTES # (AUTO) 1.2 X 10^3 (1.0-4.0); LYMPHOCYTES % (AUTO) 21 % (12-44); MEAN CORPUSCULAR HEMOGLOBIN 33 PG (25-34); MEAN CORPUSCULAR HGB CONC 34 G/DL (32-36); MEAN CORPUSCULAR VOLUME 96 FL (80-99); MEAN PLATELET VOLUME 9.1 FL (7.4-10.4); MONOCYTES # (AUTO) 0.4 X 10^3 (0.0-1.0); MONOCYTES % (AUTO) 7 % (0-12); NEUTROPHILS % (AUTO) 70 % (42-75); PLATELET COUNT 198 10^3/uL (130-400); RED CELL DISTRIBUTION WIDTH 14.1 % (10.0-14.5); WHITE BLOOD COUNT 5.8 10^3/uL (4.3-11.0)
[2019-06-22 09:44] LABS: ALBUMIN 4.1 GM/DL (3.2-4.5); BILIRUBIN,TOTAL 0.6 MG/DL (0.1-1.0); CALCIUM 9.4 MG/DL (8.5-10.1); CREATININE SERUM 1.54 MG/DL (0.60-1.30); POTASSIUM 4.1 MMOL/L (3.6-5.0); TOTAL PROTEIN 7.1 GM/DL (6.4-8.2)
[2019-06-29 09:26] LABS: CALCIUM 9.5 MG/DL (8.5-10.1); CREATININE SERUM 1.31 MG/DL (0.60-1.30); POTASSIUM 4.3 MMOL/L (3.6-5.0)
[2019-07-05 09:43] LABS: BASOPHILS % (AUTO) 1 % (0-10); EOSINOPHILS # (AUTO) 0.1 10^3/uL (0.0-0.3); EOSINOPHILS % (AUTO) 3 % (0-10); HEMATOCRIT 43 % (40-54); HEMOGLOBIN 14.7 G/DL (13.3-17.7); LYMPHOCYTES # (AUTO) 1.1 X 10^3 (1.0-4.0); LYMPHOCYTES % (AUTO) 24 % (12-44); MEAN CORPUSCULAR HEMOGLOBIN 33 PG (25-34); MEAN CORPUSCULAR HGB CONC 34 G/DL (32-36); MEAN CORPUSCULAR VOLUME 95 FL (80-99); MEAN PLATELET VOLUME 8.8 FL (7.4-10.4); MONOCYTES # (AUTO) 0.5 X 10^3 (0.0-1.0); MONOCYTES % (AUTO) 11 % (0-12); NEUTROPHILS # (AUTO) 2.7 X 10^3 (1.8-7.8); NEUTROPHILS % (AUTO) 62 % (42-75); PLATELET COUNT 233 10^3/uL (130-400); RED CELL DISTRIBUTION WIDTH 14.2 % (10.0-14.5); WHITE BLOOD COUNT 4.4 10^3/uL (4.3-11.0)
[2019-07-05 10:05] LABS: CALCIUM 9.6 MG/DL (8.5-10.1); CREATININE SERUM 1.31 MG/DL (0.60-1.30); POTASSIUM 3.9 MMOL/L (3.6-5.0)
[~2019-07-19] VITALS: Ht 186.7 cm; Wt 115.7 kg
[2019-07-19 09:16] LABS: BASOPHILS % (AUTO) 1 % (0-10); EOSINOPHILS # (AUTO) 0.1 10^3/uL (0.0-0.3); EOSINOPHILS % (AUTO) 2 % (0-10); HEMATOCRIT 41 % (40-54); HEMOGLOBIN 14.1 G/DL (13.3-17.7); LYMPHOCYTES # (AUTO) 1.1 X 10^3 (1.0-4.0); LYMPHOCYTES % (AUTO) 25 % (12-44); MEAN CORPUSCULAR HEMOGLOBIN 33 PG (25-34); MEAN CORPUSCULAR HGB CONC 34 G/DL (32-36); MEAN CORPUSCULAR VOLUME 96 FL (80-99); MEAN PLATELET VOLUME 8.9 FL (7.4-10.4); MONOCYTES # (AUTO) 0.6 X 10^3 (0.0-1.0); MONOCYTES % (AUTO) 12 % (0-12); NEUTROPHILS # (AUTO) 2.7 X 10^3 (1.8-7.8); NEUTROPHILS % (AUTO) 60 % (42-75); PLATELET COUNT 218 10^3/uL (130-400); RED CELL DISTRIBUTION WIDTH 14.5 % (10.0-14.5); WHITE BLOOD COUNT 4.5 10^3/uL (4.3-11.0)
[2019-07-19 09:45] LABS: BILIRUBIN,TOTAL 0.5 MG/DL (0.1-1.0); CALCIUM 9.4 MG/DL (8.5-10.1); CREATININE SERUM 1.33 MG/DL (0.60-1.30); POTASSIUM 4.3 MMOL/L (3.6-5.0); TOTAL PROTEIN 7.6 GM/DL (6.4-8.2)
== END 2019-07-25 | disposition home or self-care (01) ==
LOC: ONC 08:57
PROVIDERS: ATTEND Internal Medicine Hematology & Oncology
DX: Z51.11 Encounter for antineoplastic chemotherapy (principal); C34.12 Malignant neoplasm of upper lobe, left bronchus or lung; I10 Essential (primary) hypertension; K21.9 Gastro-esophageal reflux disease without esophagitis; Z79.899 Other long term (current) drug therapy
CPT/HCPCS: 36415; 80048; 80053; 84443; 85025; 96413

== ENCOUNTER → 2019-10-18 | Outpatient (CLI) | payer BC ==
[~2019-10-18] MED LIST changes: +BARIUM SUSPENSION 2.1% (VANILLA SILQ) 450 ML PO ONE; +CATHETER FLUSH 10 ML SYR IV PRN; -DURVALUMAB IV SCH; +HOLD METFORMIN - RECEIVED CONTRAST 20 ML VIAL IV SCH; +IOHEXOL 350 MG/ML 100 ML (OMNIPAQUE 350) VIAL IV ONE; +NS 100 ML (IVPB) BAG IV ONE; -NS IV 500 ML (CANCER CENTER) IV SCH; -NS IV SCH
[2019-10-18] MEDS: CATHETER FLUSH 10 ML SYR IV PRN ×2 (10:47→11:09)
--- NOTE | 2019-10-18 12:13 | Diagnostic Imaging Report ---
PROCEDURE: CT chest with contrast, CT abdomen with and without contrast. TECHNIQUE: Precontrast acquisitions were acquired through the abdomen. Multiple contiguous axial images were obtained through the chest and abdomen after administration of intravenous contrast. Auto Exposure Controls were utilized during the CT exam to meet ALARA standards for radiation dose reduction. INDICATION: Squamous cell carcinoma of the lung. Patient is status post radiation therapy and chemotherapy. COMPARISON: Correlation is made with prior CT chest from 09/28/2018. FINDINGS: No axillary lymphadenopathy is detected. No mediastinal or hilar lymphadenopathy is seen. Previously noted left hilar mass is not appreciated on today's study. No pericardial or pleural fluid is identified. Centrilobular emphysematous changes are noted. Linear opacities in the left paramediastinal location are noted, likely fibrotic scarring from radiation therapy. A small nodule previously described in the left upper lobe is not appreciated on today's exam. Groundglass infiltrates noted previously in the anterior left upper lobe have improved. There are some probable interstitial fibrotic changes throughout the right lung. No new mass is identified. IMPRESSION: Stable CT chest since study one year earlier. No residual mass in the left hilum is seen. There is no thoracic lymphadenopathy or effusion. CT abdomen: No discrete liver mass is identified. The gallbladder is unremarkable. No biliary ductal dilatation is identified. The pancreas and spleen are unremarkable. No adrenal mass is detected. The kidneys are unremarkable. Aorta is nonaneurysmal. No central retroperitoneal or mesenteric lymphadenopathy is detected. The bowel loops are normal in caliber. There is no ascites. IMPRESSION: Unremarkable CT of the abdomen. No lymphadenopathy or evidence of metastatic disease is identified. Dictated by: Dictated on workstation # [id number]
--- NOTE | 2019-10-18 15:15 | Diagnostic Imaging Report ---
INDICATION: Lung cancer. TECHNIQUE: Patient was administered 26.5 mCi of technetium-99m MDP intravenously, and whole-body imaging was performed after a 3-hour delay. COMPARISON: No prior studies are available for comparison. FINDINGS: There is normal uptake of activity by the axial and appendicular skeleton. There is uptake by the kidneys with excretion into the urinary bladder. No suspicious foci of tracer accumulation is identified to suggest osseous metastatic disease. IMPRESSION: No scintigraphic evidence of osseous metastatic disease. Dictated by: Dictated on workstation # [id number]
== END ==
LOC: CARD 10:39
PROVIDERS: ATTEND Internal Medicine Hematology & Oncology
DX: C34.82 Malignant neoplasm of overlapping sites of left bronchus and lung (principal); Z92.21 Personal history of antineoplastic chemotherapy; Z92.3 Personal history of irradiation
CPT/HCPCS: 71260; 74170; 78306

== ENCOUNTER 2019-10-29 13:42 | Outpatient (RCR) | payer BC ==
[2019-08-02 09:08] LABS: BASOPHILS % (AUTO) 0 % (0-10); EOSINOPHILS # (AUTO) 0.1 10^3/uL (0.0-0.3); EOSINOPHILS % (AUTO) 1 % (0-10); HEMATOCRIT 42 % (40-54); HEMOGLOBIN 14.3 G/DL (13.3-17.7); LYMPHOCYTES # (AUTO) 0.7 X 10^3 (1.0-4.0); LYMPHOCYTES % (AUTO) 12 % (12-44); MEAN CORPUSCULAR HEMOGLOBIN 33 PG (25-34); MEAN CORPUSCULAR HGB CONC 34 G/DL (32-36); MEAN CORPUSCULAR VOLUME 96 FL (80-99); MEAN PLATELET VOLUME 8.8 FL (7.4-10.4); MONOCYTES # (AUTO) 0.7 X 10^3 (0.0-1.0); MONOCYTES % (AUTO) 12 % (0-12); NEUTROPHILS # (AUTO) 4.3 X 10^3 (1.8-7.8); NEUTROPHILS % (AUTO) 75 % (42-75); PLATELET COUNT 218 10^3/uL (130-400); RED CELL DISTRIBUTION WIDTH 14.2 % (10.0-14.5); WHITE BLOOD COUNT 5.7 10^3/uL (4.3-11.0)
[2019-08-02 09:27] LABS: CALCIUM 9.2 MG/DL (8.5-10.1); CREATININE SERUM 1.34 MG/DL (0.60-1.30); POTASSIUM 4.1 MMOL/L (3.6-5.0)
[2019-08-16 09:33] LABS: BASOPHILS % (AUTO) 0 % (0-10); EOSINOPHILS # (AUTO) 0.1 10^3/uL (0.0-0.3); EOSINOPHILS % (AUTO) 2 % (0-10); HEMATOCRIT 43 % (40-54); HEMOGLOBIN 14.9 G/DL (13.3-17.7); LYMPHOCYTES # (AUTO) 1.1 X 10^3 (1.0-4.0); LYMPHOCYTES % (AUTO) 25 % (12-44); MEAN CORPUSCULAR HEMOGLOBIN 33 PG (25-34); MEAN CORPUSCULAR HGB CONC 34 G/DL (32-36); MEAN CORPUSCULAR VOLUME 96 FL (80-99); MEAN PLATELET VOLUME 8.8 FL (7.4-10.4); MONOCYTES # (AUTO) 0.5 X 10^3 (0.0-1.0); MONOCYTES % (AUTO) 10 % (0-12); NEUTROPHILS # (AUTO) 2.8 X 10^3 (1.8-7.8); NEUTROPHILS % (AUTO) 62 % (42-75); PLATELET COUNT 218 10^3/uL (130-400); RED CELL DISTRIBUTION WIDTH 13.9 % (10.0-14.5); WHITE BLOOD COUNT 4.5 10^3/uL (4.3-11.0)
[2019-08-16 09:49] LABS: BILIRUBIN,TOTAL 0.5 MG/DL (0.1-1.0); CALCIUM 9.4 MG/DL (8.5-10.1); CREATININE SERUM 1.31 MG/DL (0.60-1.30); POTASSIUM 4.4 MMOL/L (3.6-5.0); TOTAL PROTEIN 7.2 GM/DL (6.4-8.2)
[2019-09-06 09:27] LABS: BASOPHILS % (AUTO) 0 % (0-10); EOSINOPHILS # (AUTO) 0.1 10^3/uL (0.0-0.3); EOSINOPHILS % (AUTO) 1 % (0-10); HEMATOCRIT 44 % (40-54); HEMOGLOBIN 15.2 G/DL (13.3-17.7); LYMPHOCYTES # (AUTO) 0.9 X 10^3 (1.0-4.0); LYMPHOCYTES % (AUTO) 10 % (12-44); MEAN CORPUSCULAR HEMOGLOBIN 33 PG (25-34); MEAN CORPUSCULAR HGB CONC 35 G/DL (32-36); MEAN CORPUSCULAR VOLUME 96 FL (80-99); MEAN PLATELET VOLUME 8.7 FL (7.4-10.4); MONOCYTES # (AUTO) 0.8 X 10^3 (0.0-1.0); MONOCYTES % (AUTO) 8 % (0-12); NEUTROPHILS # (AUTO) 7.7 X 10^3 (1.8-7.8); NEUTROPHILS % (AUTO) 81 % (42-75); PLATELET COUNT 235 10^3/uL (130-400); RED CELL DISTRIBUTION WIDTH 14.1 % (10.0-14.5); WHITE BLOOD COUNT 9.6 10^3/uL (4.3-11.0)
[2019-09-06 09:42] LABS: CALCIUM 9.4 MG/DL (8.5-10.1); CREATININE SERUM 1.2 MG/DL (0.60-1.30); POTASSIUM 4.3 MMOL/L (3.6-5.0)
[2019-09-20 09:09] LABS: BASOPHILS % (AUTO) 0 % (0-10); EOSINOPHILS # (AUTO) 0.1 10^3/uL (0.0-0.3); EOSINOPHILS % (AUTO) 3 % (0-10); HEMATOCRIT 44 % (40-54); HEMOGLOBIN 14.8 G/DL (13.3-17.7); LYMPHOCYTES % (AUTO) 18 % (12-44); MEAN CORPUSCULAR HEMOGLOBIN 33 PG (25-34); MEAN CORPUSCULAR HGB CONC 34 G/DL (32-36); MEAN CORPUSCULAR VOLUME 98 FL (80-99); MEAN PLATELET VOLUME 8.9 FL (7.4-10.4); MONOCYTES # (AUTO) 0.7 X 10^3 (0.0-1.0); MONOCYTES % (AUTO) 12 % (0-12); NEUTROPHILS # (AUTO) 3.7 X 10^3 (1.8-7.8); NEUTROPHILS % (AUTO) 68 % (42-75); PLATELET COUNT 207 10^3/uL (130-400); RED CELL DISTRIBUTION WIDTH 13.8 % (10.0-14.5); WHITE BLOOD COUNT 5.5 10^3/uL (4.3-11.0)
[2019-09-20 09:29] LABS: ALBUMIN 4.2 GM/DL (3.2-4.5); BILIRUBIN,TOTAL 0.5 MG/DL (0.1-1.0); CALCIUM 9.6 MG/DL (8.5-10.1); CREATININE SERUM 1.27 MG/DL (0.60-1.30); POTASSIUM 4.3 MMOL/L (3.6-5.0); TOTAL PROTEIN 7.2 GM/DL (6.4-8.2)
[2019-10-04 09:02] LABS: BASOPHILS % (AUTO) 0 % (0-10); EOSINOPHILS # (AUTO) 0.1 10^3/uL (0.0-0.3); EOSINOPHILS % (AUTO) 2 % (0-10); HEMATOCRIT 43 % (40-54); HEMOGLOBIN 14.8 G/DL (13.3-17.7); LYMPHOCYTES # (AUTO) 1.3 X 10^3 (1.0-4.0); LYMPHOCYTES % (AUTO) 21 % (12-44); MEAN CORPUSCULAR HEMOGLOBIN 34 PG (25-34); MEAN CORPUSCULAR HGB CONC 34 G/DL (32-36); MEAN CORPUSCULAR VOLUME 98 FL (80-99); MEAN PLATELET VOLUME 9.1 FL (7.4-10.4); MONOCYTES # (AUTO) 0.7 X 10^3 (0.0-1.0); MONOCYTES % (AUTO) 12 % (0-12); NEUTROPHILS % (AUTO) 65 % (42-75); PLATELET COUNT 227 10^3/uL (130-400); RED CELL DISTRIBUTION WIDTH 13.9 % (10.0-14.5); WHITE BLOOD COUNT 6.2 10^3/uL (4.3-11.0)
[2019-10-04 09:21] LABS: CALCIUM 9.4 MG/DL (8.5-10.1); CREATININE SERUM 1.21 MG/DL (0.60-1.30); POTASSIUM 4.2 MMOL/L (3.6-5.0)
[~2019-10-29 13:42] MED LIST changes: -BARIUM SUSPENSION 2.1% (VANILLA SILQ) 450 ML PO ONE; -CATHETER FLUSH 10 ML SYR IV PRN; +DURVALUMAB IV SCH; -HOLD METFORMIN - RECEIVED CONTRAST 20 ML VIAL IV SCH; -IOHEXOL 350 MG/ML 100 ML (OMNIPAQUE 350) VIAL IV ONE; -NS 100 ML (IVPB) BAG IV ONE; +NS IV 500 ML (CANCER CENTER) IV SCH; +NS IV SCH; -TRAM50TA2 PO; +TRM50T PO
[2019-10-29 14:33] LABS: BASOPHILS % (AUTO) 1 % (0-10); EOSINOPHILS # (AUTO) 0.1 10^3/uL (0.0-0.3); EOSINOPHILS % (AUTO) 2 % (0-10); HEMATOCRIT 40 % (40-54); HEMOGLOBIN 13.8 G/DL (13.3-17.7); LYMPHOCYTES % (AUTO) 19 % (12-44); MEAN CORPUSCULAR HEMOGLOBIN 34 PG (25-34); MEAN CORPUSCULAR HGB CONC 35 G/DL (32-36); MEAN CORPUSCULAR VOLUME 97 FL (80-99); MEAN PLATELET VOLUME 8.7 FL (7.4-10.4); MONOCYTES # (AUTO) 0.7 X 10^3 (0.0-1.0); MONOCYTES % (AUTO) 12 % (0-12); NEUTROPHILS # (AUTO) 3.6 X 10^3 (1.8-7.8); NEUTROPHILS % (AUTO) 66 % (42-75); PLATELET COUNT 216 10^3/uL (130-400); RED CELL DISTRIBUTION WIDTH 13.7 % (10.0-14.5); WHITE BLOOD COUNT 5.4 10^3/uL (4.3-11.0)
[2019-10-29 14:57] LABS: BILIRUBIN,TOTAL 0.3 MG/DL (0.1-1.0); CALCIUM 9.2 MG/DL (8.5-10.1); CREATININE SERUM 1.31 MG/DL (0.60-1.30); POTASSIUM 4.3 MMOL/L (3.6-5.0); TOTAL PROTEIN 6.7 GM/DL (6.4-8.2)
== END 2019-10-31 | disposition home or self-care (01) ==
LOC: ONC 13:42
PROVIDERS: ATTEND Internal Medicine Hematology & Oncology
DX: Z51.11 Encounter for antineoplastic chemotherapy (principal); C34.12 Malignant neoplasm of upper lobe, left bronchus or lung; I10 Essential (primary) hypertension; K21.9 Gastro-esophageal reflux disease without esophagitis; Z79.899 Other long term (current) drug therapy
CPT/HCPCS: 36415; 80048; 80053; 84443; 85025; 96413; 99213

== ENCOUNTER → 2020-02-17 | Outpatient (CLI) | payer MEDICARE ==
[~2020-02-17] MED LIST changes: -DURVALUMAB IV SCH; +HOLD METFORMIN - RECEIVED CONTRAST 20 ML VIAL IV SCH; +IOHEXOL 350 MG/ML 100 ML (OMNIPAQUE 350) VIAL IV ONE; -MONT10TA24 PO; +MONT10TA26 PO; +NS 100 ML (IVPB) BAG IV ONE; -NS IV 500 ML (CANCER CENTER) IV SCH; -NS IV SCH; +OMEP40CA27 PO; -OMEP40CA36 PO
--- NOTE | 2020-02-17 13:41 | Diagnostic Imaging Report ---
PROCEDURE: CT chest with contrast, CT abdomen with and without contrast. TECHNIQUE: Precontrast acquisitions were acquired through the abdomen. Multiple contiguous axial images were obtained through the chest and abdomen after administration of intravenous contrast. Auto Exposure Controls were utilized during the CT exam to meet ALARA standards for radiation dose reduction. INDICATION: Squamous cell carcinoma of the lung. COMPARISON: 10/18/2019. FINDINGS: CT chest: Postsurgical and radiation changes are again noted in the left lung with scarring along the hilum and mediastinum. There are severe bullous emphysematous changes with subpleural honeycombing noted more severe on the right. This is present bilaterally in the upper and lower lobes, however. No evidence of bronchiectasis. There is a soft tissue nodule developing in the right upper lung anteriorly measuring 8 mm. This has increased in size since previous exam. There is diffuse groundglass appearance again demonstrated most notably in the periphery of the right lung. There is good opacification of the aorta and pulmonary arteries. Aorta is atherosclerotic without aneurysm. No mediastinal or hilar adenopathy of pathologic size. No pleural effusions or pericardial effusion. IMPRESSION: 1. Small nodule developing anteriorly in the right upper lung which is slightly spiculated measuring 8 mm. This is of concern for a metastatic lesion with patient's history. 2. Postsurgical changes and radiation changes on the left. 3. Severe underlying bullous emphysematous disease. CT abdomen and pelvis: Good opacification of the aorta and abdominal vessels following IV contrast. The liver appears normal. The gallbladder and bile duct are normal. The pancreas and spleen are normal. The adrenal glands are not enlarged. Kidneys appear normal. Normal enhancement of the abdominal organs. No adenopathy of pathologic size. Stomach and small bowel are not distended. Colon appears normal where visualized. No bony lesions. IMPRESSION: Stable CT scan of the abdomen. No changes have occurred that would suggest metastatic disease within the abdomen. Dictated by: Dictated on workstation # [id number]
== END ==
LOC: RAD 11:26
PROVIDERS: ATTEND Internal Medicine Hematology & Oncology
DX: C34.82 Malignant neoplasm of overlapping sites of left bronchus and lung (principal)
CPT/HCPCS: 71260; 74170

== ENCOUNTER 2020-03-22 10:20 | Outpatient (RCR) | payer MEDICARE ==
[2020-02-17 10:48] LABS: BASOPHILS % (AUTO) 0 % (0-10); EOSINOPHILS # (AUTO) 0.1 10^3/uL (0.0-0.3); EOSINOPHILS % (AUTO) 2 % (0-10); HEMATOCRIT 43 % (40-54); HEMOGLOBIN 14.7 G/DL (13.3-17.7); LYMPHOCYTES # (AUTO) 0.9 X 10^3 (1.0-4.0); LYMPHOCYTES % (AUTO) 16 % (12-44); MEAN CORPUSCULAR HEMOGLOBIN 33 PG (25-34); MEAN CORPUSCULAR HGB CONC 34 G/DL (32-36); MEAN CORPUSCULAR VOLUME 97 FL (80-99); MEAN PLATELET VOLUME 8.9 FL (7.4-10.4); MONOCYTES # (AUTO) 0.7 X 10^3 (0.0-1.0); MONOCYTES % (AUTO) 13 % (0-12); NEUTROPHILS # (AUTO) 3.8 X 10^3 (1.8-7.8); NEUTROPHILS % (AUTO) 68 % (42-75); PLATELET COUNT 215 10^3/uL (130-400); RED CELL DISTRIBUTION WIDTH 14.3 % (10.0-14.5); WHITE BLOOD COUNT 5.5 10^3/uL (4.3-11.0)
[2020-02-17 11:06] LABS: ALANINE AMINOTRANSFERASE 20 U/L (0-55); ALBUMIN 3.9 GM/DL (3.2-4.5); ALKALINE PHOSPHATASE 68 U/L (40-136); BILIRUBIN,TOTAL 0.4 MG/DL (0.1-1.0); BUN/CREATININE RATIO 12; CALCIUM 9.1 MG/DL (8.5-10.1); CARBON DIOXIDE 19 MMOL/L (21-32); CHLORIDE 108 MMOL/L (98-107); CREATININE SERUM 1.17 MG/DL (0.60-1.30); GFR ESTIMATED > 60; GLUCOSE 106 MG/DL (70-105); POTASSIUM 4.3 MMOL/L (3.6-5.0); SODIUM 141 MMOL/L (135-145)
[~2020-03-22 10:20] MED LIST changes: -HOLD METFORMIN - RECEIVED CONTRAST 20 ML VIAL IV SCH; -IOHEXOL 350 MG/ML 100 ML (OMNIPAQUE 350) VIAL IV ONE; -NS 100 ML (IVPB) BAG IV ONE
== END 2020-05-17 | disposition home or self-care (01) ==
LOC: ONC 10:20
PROVIDERS: ATTEND Internal Medicine Hematology & Oncology
DX: C34.82 Malignant neoplasm of overlapping sites of left bronchus and lung (principal); I10 Essential (primary) hypertension; K21.9 Gastro-esophageal reflux disease without esophagitis; Z79.899 Other long term (current) drug therapy
CPT/HCPCS: 80053; 85025; 99213; 99214

== ENCOUNTER → 2020-05-17 | Outpatient (CLI) | payer MEDICARE ==
[~2020-05-17] MED LIST changes: +CATHETER FLUSH 10 ML SYR IV PRN; +HOLD METFORMIN - RECEIVED CONTRAST 20 ML VIAL IV SCH; +IOHEXOL 350 MG/ML 100 ML (OMNIPAQUE 350) VIAL IV ONE; +NS 100 ML (IVPB) BAG IV ONE
[2020-05-17 10:58] LABS: CREATININE SERUM 1.13 MG/DL (0.60-1.30); GFR ESTIMATED > 60
[2020-05-17 10:59] LABS: BUN/CREATININE RATIO 13
--- NOTE | 2020-05-17 12:47 | Diagnostic Imaging Report ---
PROCEDURE: CT chest with contrast only. TECHNIQUE: Multiple contiguous axial images were obtained through the chest after administration of intravenous contrast. Auto Exposure Controls were utilized during the CT exam to meet ALARA standards for radiation dose reduction. INDICATION: Lung cancer. FINDINGS: The previous CT chest exam of 02/17/2020 noted an 8 mm spiculated nodule along the anterior aspect of the right upper lung. This finding was not clearly evident on the previous exam of 10/18/2019. That finding is again evident on this study and now measures approximately 9 mm. The possibility that this is related to a malignant process should certainly be considered. If further evaluation is desired, then PET/CT would be recommended. The overall appearance of the CT chest exam has not changed adversely otherwise. There is still evidence of scar formation and fibrosis along the medial aspect of the left upper lung. The chronic pulmonary changes involving both lungs and the groundglass densities throughout the right lung seen previously are again evident and essentially no different. On the other hand, the left lung base does seem better aerated. In retrospect, there may have been an element of mild acute pneumonia/atelectasis superimposed on the chronic changes involving the left lung base on the prior exam. The heart size is enlarged but stable when compared to the prior exam. Coronary artery calcifications are again noted. The aorta is not abnormally dilated and there is no sign of a dissection. There is no defect within the pulmonary arteries to indicate a pulmonary embolus. There is no mediastinal or hilar adenopathy. The thyroid gland where visualized is unremarkable. The sections through the upper abdomen fail to show any sign of an acute abnormality. The bone windows are unremarkable for a fracture or for a destructive lesion. IMPRESSION: 1. The small spiculated nodule in the right upper lung noted on the prior study does measure minimally greater on this exam. This finding is worrisome for malignancy. If further imaging is desired, then PET CT will be recommended. If the PET/CT exam is not performed, then a short-term (three-month) follow-up CT chest exam should be obtained. 2. There is no acute cardiopulmonary abnormality noted. Particularly, there is no sign of a pulmonary embolus or of a dissection. 3. The scar formation in the left upper lung and the chronic pulmonary changes and post radiation changes seen previously are again evident and no different. 4. There is cardiomegaly and coronary artery disease. Dictated by: Dictated on workstation # [id number]
== END ==
LOC: RAD 10:32
PROVIDERS: ATTEND Radiology Radiation Oncology
DX: I51.7 Cardiomegaly (principal); I25.10 Atherosclerotic heart disease of native coronary artery without angina pectoris; C34.12 Malignant neoplasm of upper lobe, left bronchus or lung; R91.1 Solitary pulmonary nodule; Z92.3 Personal history of irradiation
CPT/HCPCS: 36415; 71260; 82565; 84520

== ENCOUNTER → 2020-05-23 | Outpatient (CLI) | payer MEDICARE ==
[~2020-05-23] MED LIST changes: -CATHETER FLUSH 10 ML SYR IV PRN; -HOLD METFORMIN - RECEIVED CONTRAST 20 ML VIAL IV SCH; -IOHEXOL 350 MG/ML 100 ML (OMNIPAQUE 350) VIAL IV ONE; -NS 100 ML (IVPB) BAG IV ONE
--- NOTE | 2020-05-23 14:46 | Diagnostic Imaging Report ---
INDICATION: Right upper lobe pulmonary nodule. TECHNIQUE: The serum blood glucose level at the time of injection was 107 mg/dL. The patient was administered 14.5 mCi of F-18 FDG intravenously in the right antecubital location and PET imaging was performed from the top of the skull to the mid thighs. A noncontrast CT was also performed for attenuation correction and anatomic correlation. COMPARISON: Correlation is made with the prior PET/CT study from 05/19/2018. Comparison is made with the recent CT chest from 05/17/2020. FINDINGS: There is symmetric activity throughout the brain. The soft tissues of the neck are unremarkable. The spiculated nodule previously noted on the prior report in the right upper lobe demonstrates very low level activity with an SUV of approximately 2.5. No other pulmonary parenchymal areas of hypermetabolism are identified. No mediastinal or hilar hypermetabolism is detected. The abdomen and pelvis demonstrate physiologic activity with no suspicious activity identified. Interstitial fibrotic changes in both lungs are again noted. No effusion is seen. IMPRESSION: Low level activity within the spiculated density in the right upper lobe. Continued close followup is recommended to confirm stability with repeat CT chest in 3-6 months. Dictated by: Dictated on workstation # [id number]
== END ==
LOC: RAD 10:18
PROVIDERS: ATTEND Radiology Radiation Oncology
DX: R91.1 Solitary pulmonary nodule (principal)
CPT/HCPCS: 78815; A9552

== ENCOUNTER 2020-06-15 13:34 | Outpatient (RCR) | payer MEDICARE ==
[2020-06-15 13:42] LABS: BASOPHILS % (AUTO) 0 % (0-10); EOSINOPHILS % (AUTO) 0 % (0-10); HEMATOCRIT 44 % (40-54); HEMOGLOBIN 15.1 G/DL (13.3-17.7); LYMPHOCYTES # (AUTO) 0.4 X 10^3 (1.0-4.0); LYMPHOCYTES % (AUTO) 6 % (12-44); MEAN CORPUSCULAR HEMOGLOBIN 33 PG (25-34); MEAN CORPUSCULAR HGB CONC 34 G/DL (32-36); MEAN CORPUSCULAR VOLUME 97 FL (80-99); MEAN PLATELET VOLUME 8.6 FL (7.4-10.4); MONOCYTES # (AUTO) 0.4 X 10^3 (0.0-1.0); MONOCYTES % (AUTO) 5 % (0-12); NEUTROPHILS # (AUTO) 6.6 X 10^3 (1.8-7.8); NEUTROPHILS % (AUTO) 89 % (42-75); PLATELET COUNT 272 10^3/uL (130-400); WHITE BLOOD COUNT 7.5 10^3/uL (4.3-11.0)
[2020-06-15 14:00] LABS: ALBUMIN 3.7 GM/DL (3.2-4.5); BILIRUBIN,TOTAL 0.2 MG/DL (0.1-1.0); CALCIUM 9.6 MG/DL (8.5-10.1); CREATININE SERUM 1.21 MG/DL (0.60-1.30); POTASSIUM 4.7 MMOL/L (3.6-5.0); TOTAL PROTEIN 6.8 GM/DL (6.4-8.2)
== END 2020-08-22 | disposition home or self-care (01) ==
LOC: ONC 13:34
PROVIDERS: ATTEND Internal Medicine Hematology & Oncology
DX: C34.82 Malignant neoplasm of overlapping sites of left bronchus and lung (principal); I10 Essential (primary) hypertension; K21.9 Gastro-esophageal reflux disease without esophagitis; Z79.899 Other long term (current) drug therapy
CPT/HCPCS: 80053; 84443; 85025; 99212; 99213

== ENCOUNTER → 2020-09-11 | Outpatient (CLI) | payer MEDICARE ==
[~2020-09-11] MED LIST changes: +CATHETER FLUSH 10 ML SYR IV PRN; +HOLD METFORMIN - RECEIVED CONTRAST 20 ML VIAL IV SCH; +IOHEXOL 350 MG/ML 100 ML (OMNIPAQUE 350) VIAL IV ONE; +NS 100 ML (IVPB) BAG IV ONE
--- NOTE | 2020-09-11 10:39 | Diagnostic Imaging Report ---
EXAMINATION: CT Chest with intravenous contrast. TECHNIQUE: Multiple contiguous axial images were obtained through the chest after the uneventful administration of intravenous contrast. All CT scans use one or more of the following dose optimizing techniques: automated exposure control, MA and/or KvP adjustment based on a patient size and exam type, or iterative reconstruction. HISTORY: Lung cancer COMPARISON: 05/17/2020 FINDINGS: There is no edema or pneumonia. No pleural effusion. No pneumothorax. Right upper lobe nodules unchanged in size measuring 8 x 7 mm. Lungs are severely emphysematous. There is left-sided paramediastinal fibrosis and traction bronchiectasis with soft tissue thickening of the left hilum, presumably related to prior irradiated lung malignancy. The degree of soft tissue in the left hilum is stable. There is however, increased soft tissue in the left apex compared to previous exam. There is no axillary or supraclavicular lymphadenopathy. There is no mediastinal lymphadenopathy. Heart size is normal. There are mild coronary artery calcifications. No pericardial effusion. Aorta is normal in caliber. Limited views of the upper abdomen are unremarkable. There are no suspicious osseus lesions. IMPRESSION: 1. Stable right upper lobe pulmonary nodule measuring 8 x 7 mm. 2. Increasing soft tissue in the left apex, likely representing radiation fibrosis given associated traction bronchiectasis and preservation of vascular architecture. Close attention on followup is recommended. Dictated by: Dictated on workstation # [id number]
== END ==
LOC: RAD 10:15
PROVIDERS: ATTEND Internal Medicine Hematology & Oncology
DX: C34.82 Malignant neoplasm of overlapping sites of left bronchus and lung (principal); R91.1 Solitary pulmonary nodule
CPT/HCPCS: 71260

== ENCOUNTER 2020-09-28 14:24 | Outpatient (RCR) | payer MEDICARE ==
[2020-09-11 09:26] LABS: BASOPHILS % (AUTO) 1 % (0-10); EOSINOPHILS # (AUTO) 0.1 10^3/uL (0.0-0.3); EOSINOPHILS % (AUTO) 2 % (0-10); HEMATOCRIT 50 % (40-54); HEMOGLOBIN 16.5 g/dL (13.3-17.7); LYMPHOCYTES # (AUTO) 1.1 10^3/uL (1.0-4.0); LYMPHOCYTES % (AUTO) 19 % (12-44); MEAN CORPUSCULAR HEMOGLOBIN 33 pg (25-34); MEAN CORPUSCULAR HGB CONC 33 g/dL (32-36); MEAN CORPUSCULAR VOLUME 101 fL (80-99); MEAN PLATELET VOLUME 8.9 fL (9.0-12.2); MONOCYTES # (AUTO) 0.7 10^3/uL (0.0-1.0); MONOCYTES % (AUTO) 12 % (0-12); NEUTROPHILS # (AUTO) 3.8 10^3/uL (1.8-7.8); NEUTROPHILS % (AUTO) 67 % (42-75); PLATELET COUNT 221 10^3/uL (130-400); WHITE BLOOD COUNT 5.6 10^3/uL (4.3-11.0)
[2020-09-11 09:45] LABS: ALANINE AMINOTRANSFERASE 17 U/L (0-55); ALBUMIN 4.2 GM/DL (3.2-4.5); ALKALINE PHOSPHATASE 67 U/L (40-136); BILIRUBIN,TOTAL 0.8 MG/DL (0.1-1.0); BUN/CREATININE RATIO 11; CALCIUM 9.8 MG/DL (8.5-10.1); CARBON DIOXIDE 24 MMOL/L (21-32); CHLORIDE 103 MMOL/L (98-107); CREATININE SERUM 1.14 MG/DL (0.60-1.30); GFR ESTIMATED > 60; GLUCOSE 93 MG/DL (70-105); POTASSIUM 4.4 MMOL/L (3.6-5.0); SODIUM 139 MMOL/L (135-145); TOTAL PROTEIN 7.8 GM/DL (6.4-8.2)
[~2020-09-28 14:24] MED LIST changes: -CATHETER FLUSH 10 ML SYR IV PRN; -HOLD METFORMIN - RECEIVED CONTRAST 20 ML VIAL IV SCH; -IOHEXOL 350 MG/ML 100 ML (OMNIPAQUE 350) VIAL IV ONE; -MONT10TA26 PO; +MONT10TA97 PO; -NS 100 ML (IVPB) BAG IV ONE
== END 2020-10-24 13:17 | disposition home or self-care (01) ==
LOC: ONC 14:24
PROVIDERS: ATTEND Internal Medicine Hematology & Oncology
DX: C34.82 Malignant neoplasm of overlapping sites of left bronchus and lung (principal); I10 Essential (primary) hypertension; K21.9 Gastro-esophageal reflux disease without esophagitis; Z79.899 Other long term (current) drug therapy
CPT/HCPCS: 80053; 85025; G0463; 99213

== ENCOUNTER → 2020-12-07 | Outpatient (CLI) | payer MEDICARE ==
[~2020-12-07] MED LIST changes: +CATHETER FLUSH 10 ML SYR IV PRN; +HOLD METFORMIN - RECEIVED CONTRAST 20 ML VIAL IV SCH; +IOHEXOL 350 MG/ML 100 ML (OMNIPAQUE 350) VIAL IV ONE; +MONT10TA32 PO; -MONT10TA97 PO; +NS 100 ML (IVPB) BAG IV ONE; -OXYC-471 PO; +OXYC1TAB11 PO
--- NOTE | 2020-12-07 11:30 | Diagnostic Imaging Report ---
PROCEDURE: CT chest with contrast only. TECHNIQUE: Multiple contiguous axial images were obtained through the chest after administration of intravenous contrast. Auto Exposure Controls were utilized during the CT exam to meet ALARA standards for radiation dose reduction. INDICATION: Lung cancer. COMPARISON: Multiple priors, most recent performed on 09/11/2020. FINDINGS: TRACHEA AND MAIN BRONCHI: Patent without evidence of tracheal or endobronchial lesion. LUNGS AND PLEURA: The irregular spiculated nodular density in the anterior aspect of the right upper lobe is no longer well appreciated. There is increased reticulonodular opacity noted in the region of the previously demonstrated nodule. There is no significant change in bandlike consolidation in the left suprahilar region with associated traction bronchiectasis, which extends into the left lung apex. There is associated mild soft tissue thickening along the left paramediastinum. Paraseptal and centrilobular emphysematous changes are again demonstrated in both lungs, most pronounced in the right upper lobe. Diffuse interlobular/intralobular septal thickening is demonstrated in the periphery of the right lung lemus, with honeycomb-like changes also noted in the subpleural regions. Similar but less pronounced findings are demonstrated in the left lower lobe inferiorly. No new suspicious nodule or pulmonary mass. No pleural effusion or pneumothorax. MEDIASTINUM AND YASMEEN: Visualized thyroid gland is normal. No mediastinal or hilar lymphadenopathy. Esophagus is nondistended. HEART AND VESSELS: Heart is normal in size. No pericardial effusion. Thoracic aorta is nonaneurysmal. There is no evidence of venous thrombosis. DIAPHRAGM AND UPPER ABDOMEN: Unremarkable. CHEST WALL: There is unchanged mild asymmetric gynecomastia, slightly more pronounced on the right. BONES: Mild degenerative changes involve the spine. No acute osseous abnormality. IMPRESSION: The previously described irregular spiculated nodule in the right upper lobe is no longer well seen, with increased reticulonodular opacities noted in this area of the right upper lobe. Bandlike consolidation and paramediastinal soft tissue prominence in the left lung apex is unchanged, likely related to fibrosis/scarring. No new suspicious nodule or pulmonary mass is demonstrated. Chronic and incidental findings are detailed above. Dictated by: Dictated on workstation # [id number]
== END ==
LOC: RAD 09:32
PROVIDERS: ATTEND Internal Medicine Hematology & Oncology
DX: C34.90 Malignant neoplasm of unspecified part of unspecified bronchus or lung (principal)
CPT/HCPCS: 71260

== ENCOUNTER 2020-12-14 13:00 | Outpatient (RCR) | payer MEDICARE ==
[2020-12-07 09:36] LABS: BASOPHILS % (AUTO) 1 % (0-10); EOSINOPHILS # (AUTO) 0.1 10^3/uL (0.0-0.3); EOSINOPHILS % (AUTO) 2 % (0-10); HEMATOCRIT 48 % (40-54); LYMPHOCYTES # (AUTO) 1.2 10^3/uL (1.0-4.0); LYMPHOCYTES % (AUTO) 18 % (12-44); MEAN CORPUSCULAR HEMOGLOBIN 33 pg (25-34); MEAN CORPUSCULAR HGB CONC 33 g/dL (32-36); MEAN CORPUSCULAR VOLUME 98 fL (80-99); MONOCYTES # (AUTO) 0.8 10^3/uL (0.0-1.0); MONOCYTES % (AUTO) 13 % (0-12); NEUTROPHILS # (AUTO) 4.3 10^3/uL (1.8-7.8); NEUTROPHILS % (AUTO) 66 % (42-75); PLATELET COUNT 223 10^3/uL (130-400); WHITE BLOOD COUNT 6.4 10^3/uL (4.3-11.0)
[2020-12-07 09:46] LABS: BILIRUBIN,TOTAL 0.5 MG/DL (0.1-1.0); CALCIUM 9.6 MG/DL (8.5-10.1); CREATININE SERUM 1.2 MG/DL (0.60-1.30); TOTAL PROTEIN 7.5 GM/DL (6.4-8.2)
[~2020-12-14 13:00] MED LIST changes: -CATHETER FLUSH 10 ML SYR IV PRN; -HOLD METFORMIN - RECEIVED CONTRAST 20 ML VIAL IV SCH; -IOHEXOL 350 MG/ML 100 ML (OMNIPAQUE 350) VIAL IV ONE; -NS 100 ML (IVPB) BAG IV ONE
== END 2021-03-07 | disposition home or self-care (01) ==
LOC: ONC 13:00
PROVIDERS: ATTEND Internal Medicine Hematology & Oncology
DX: C34.90 Malignant neoplasm of unspecified part of unspecified bronchus or lung (principal); I10 Essential (primary) hypertension; K21.9 Gastro-esophageal reflux disease without esophagitis; Z79.899 Other long term (current) drug therapy
CPT/HCPCS: 80053; 85025; 99213

== ENCOUNTER → 2021-03-08 | Outpatient (CLI) | payer MEDICARE ==
[~2021-03-08] MED LIST changes: +HOLD METFORMIN - RECEIVED CONTRAST 20 ML VIAL IV SCH; +IOHEXOL 350 MG/ML 100 ML (OMNIPAQUE 350) VIAL IV ONE; +NS 100 ML (IVPB) BAG IV ONE
--- NOTE | 2021-03-08 16:44 | Diagnostic Imaging Report ---
PROCEDURE: CT chest with contrast only. TECHNIQUE: Multiple contiguous axial images were obtained through the chest after administration of intravenous contrast. Auto Exposure Controls were utilized during the CT exam to meet ALARA standards for radiation dose reduction. DATE: March 08, 2021. COMPARISON: CT chest December 07, 2020. INDICATION: 70-year-old male, history of squamous cell carcinoma of the lung. FINDINGS: There are mostly linear opacities in the left upper lobe with unchanged appearance since comparison exam most likely relating to treatment related changes. There is no new pulmonary nodule or lung mass. There are findings of emphysema. There are also additional predominantly peripheral cystic lung changes. This is also present on the prior study. There is no new focal airspace consolidation. There is no pneumothorax. There is no pleural effusion. There is no abnormally enlarged mediastinal, hilar or axillary lymph node meeting CT size criteria for adenopathy. The visualized portions of the upper abdomen are grossly unremarkable. There is no identified acute bony abnormality. IMPRESSION: CT chest: 1. Treatment related changes in the left upper lobe. 2. No evidence of residual or recurrent malignancy or metastatic disease. 3. Findings of upper lobe predominant emphysema as well as additional predominantly peripheral chronic cystic lung changes. Dictated by: Dictated on workstation # [id number]
== END ==
LOC: RAD 11:14
PROVIDERS: ATTEND Internal Medicine Hematology & Oncology
DX: J43.9 Emphysema, unspecified (principal); J98.4 Other disorders of lung
CPT/HCPCS: 71260

== ENCOUNTER 2021-03-13 09:24 | Outpatient (RCR) | payer MEDICARE ==
[2021-03-08 10:46] LABS: BASOPHILS % (AUTO) 1 % (0-10); EOSINOPHILS # (AUTO) 0.1 10^3/uL (0.0-0.3); EOSINOPHILS % (AUTO) 3 % (0-10); HEMATOCRIT 47 % (40-54); HEMOGLOBIN 15.9 g/dL (13.3-17.7); LYMPHOCYTES # (AUTO) 1.2 10^3/uL (1.0-4.0); LYMPHOCYTES % (AUTO) 21 % (12-44); MEAN CORPUSCULAR HEMOGLOBIN 33 pg (25-34); MEAN CORPUSCULAR HGB CONC 34 g/dL (32-36); MEAN CORPUSCULAR VOLUME 98 fL (80-99); MEAN PLATELET VOLUME 9.2 fL (9.0-12.2); MONOCYTES # (AUTO) 0.7 10^3/uL (0.0-1.0); MONOCYTES % (AUTO) 12 % (0-12); NEUTROPHILS # (AUTO) 3.6 10^3/uL (1.8-7.8); NEUTROPHILS % (AUTO) 64 % (42-75); PLATELET COUNT 199 10^3/uL (130-400); WHITE BLOOD COUNT 5.7 10^3/uL (4.3-11.0)
[2021-03-08 11:05] LABS: ALANINE AMINOTRANSFERASE 14 U/L (0-55); ALBUMIN 3.9 GM/DL (3.2-4.5); ALKALINE PHOSPHATASE 56 U/L (40-136); BILIRUBIN,TOTAL 0.5 MG/DL (0.1-1.0); BUN/CREATININE RATIO 11; CALCIUM 9.2 MG/DL (8.5-10.1); CARBON DIOXIDE 27 MMOL/L (21-32); CHLORIDE 104 MMOL/L (98-107); CREATININE SERUM 1.09 MG/DL (0.60-1.30); GFR ESTIMATED > 60; GLUCOSE 91 MG/DL (70-105); POTASSIUM 4.3 MMOL/L (3.6-5.0); SODIUM 138 MMOL/L (135-145); TOTAL PROTEIN 7.2 GM/DL (6.4-8.2)
[~2021-03-13 09:24] MED LIST changes: -HOLD METFORMIN - RECEIVED CONTRAST 20 ML VIAL IV SCH; -IOHEXOL 350 MG/ML 100 ML (OMNIPAQUE 350) VIAL IV ONE; -NS 100 ML (IVPB) BAG IV ONE; -OMEP40CA27 PO; +OMEP40CA6 PO
== END 2021-06-01 13:44 | disposition home or self-care (01) ==
LOC: ONC 09:24
PROVIDERS: ATTEND Internal Medicine Hematology & Oncology
DX: C34.12 Malignant neoplasm of upper lobe, left bronchus or lung (principal); I10 Essential (primary) hypertension; K21.9 Gastro-esophageal reflux disease without esophagitis; Z92.21 Personal history of antineoplastic chemotherapy; Z92.3 Personal history of irradiation; Z79.899 Other long term (current) drug therapy
CPT/HCPCS: 80053; 85025; 99213

== ENCOUNTER → 2021-06-07 | Outpatient (CLI) | payer MEDICARE ==
[~2021-06-07] MED LIST changes: +BARIUM SUSPENSION 2.1% (VANILLA SILQ) 450 ML PO ONE; +HOLD METFORMIN - RECEIVED CONTRAST 20 ML VIAL IV SCH; +IOHEXOL 350 MG/ML 100 ML (OMNIPAQUE 350) VIAL IV ONE
[2021-06-07] MEDS: CATHETER FLUSH 10 ML SYR IV PRN ×2 (11:57→12:20)
--- NOTE | 2021-06-07 12:52 | Diagnostic Imaging Report ---
PROCEDURE: CT chest and abdomen with contrast. TECHNIQUE: Multiple contiguous axial images were obtained through the chest and abdomen after the administration of intravenous contrast. Auto Exposure Controls were utilized during the CT exam to meet ALARA standards for radiation dose reduction. INDICATION: Lung carcinoma. COMPARISON: Comparison is made with prior CT from 03/08/2021. CT CHEST: No axillary lymphadenopathy is detected. No definite mediastinal or hilar lymphadenopathy is detected. No pericardial or pleural fluid is detected. Emphysematous changes throughout both lungs persist. There are some interstitial and cystic changes in the periphery of the right upper and right lower lobes. There are post-therapeutic changes in the left upper lobe. Previously noted paramediastinal fibrosis on the left is similar. There is some increase in rounded consolidation versus mass in the left apex when compared with prior exam. This area measures approximately 5 cm x 5.5 cm in diameter and is indeterminate. Remainder of the lung lemus are clear. IMPRESSION: Post-therapeutic changes in the left upper lobe. However, there is an area of more rounded consolidation versus mass in the left apex when compared with the prior study from February. PET-CT study would BE useful for further evaluation to exclude possibility of recurrence. No thoracic lymphadenopathy is detected. CT ABDOMEN: No discrete liver mass is identified. Gallbladder is unremarkable. There is no biliary ductal dilatation. The pancreas and spleen are unremarkable. No adrenal mass is identified. Kidneys are unremarkable. Aorta is nonaneurysmal. No central retroperitoneal or mesenteric lymphadenopathy is seen. Bowel loops are normal in caliber. There is no ascites. Bony structures are nonacute. IMPRESSION: Stable unremarkable CT of the abdomen. There is no evidence of lymphadenopathy or metastatic disease. Dictated by: Dictated on workstation # [id number]
--- NOTE | 2021-06-07 15:49 | Diagnostic Imaging Report ---
INDICATION: Squamous cell lung carcinoma. The patient was administered 27.3 mCi technetium 99m MDP intravenously and whole-body imaging was performed after a 3 hour delay. CORRELATION: Is made with prior whole body bone scan from 10/18/2019. The bone scan remains unremarkable. There is normal uptake in the axial and appendicular skeleton. Renal uptake with bladder activity is again noted. There are no suspicious regions of activity to suggest osseous metastatic disease. IMPRESSION: Continued normal whole body bone scan with no scintigraphic evidence of osseous metastatic disease. Dictated by: Dictated on workstation # [id number]
== END ==
LOC: CARD 11:50
PROVIDERS: ATTEND Internal Medicine Hematology & Oncology
DX: C34.90 Malignant neoplasm of unspecified part of unspecified bronchus or lung (principal)
CPT/HCPCS: 71260; 74160; 78306; A9503

== ENCOUNTER → 2021-06-19 | Outpatient (CLI) | payer MEDICARE ==
[~2021-06-19] MED LIST changes: -BARIUM SUSPENSION 2.1% (VANILLA SILQ) 450 ML PO ONE; -HOLD METFORMIN - RECEIVED CONTRAST 20 ML VIAL IV SCH; -IOHEXOL 350 MG/ML 100 ML (OMNIPAQUE 350) VIAL IV ONE
--- NOTE | 2021-06-19 13:14 | Diagnostic Imaging Report ---
INDICATION: Abnormal recent CT chest study demonstrating some increasing consolidation versus mass in the left upper lobe. TECHNIQUE: Serum blood glucose level at the time of injection is 98 mg/dL. Patient was administered 13.6 mCi F-18 FDG intravenously in the left antecubital location and PET imaging was performed from the top of the skull to mid thighs. Noncontrast CT was also performed for attenuation correction and anatomic correlation. COMPARISON: Correlation is made with recent CT chest and abdomen study from 06/07/2021. Comparison is also made with prior PET/CT study from 05/23/2020. FINDINGS: There is symmetric activity throughout the brain. Soft tissues of the neck are unremarkable. The area of consolidation versus mass in the left lung apex does show some increased metabolic activity with SUV max of approximately 5.9. This is concerning for area of recurrence. There is also some uptake in the right upper lobe with an SUV max of 5.3. Neoplasm at this location is also suspected. No other areas of hypermetabolism in the chest are identified. Abdomen and pelvis demonstrate physiologic activity but no suspicious hypermetabolism is identified. IMPRESSION: There are abnormal regions of hypermetabolism in both the right upper and left upper lobes, suspicious for neoplasm. No other suspicious areas are identified. Dictated by: Dictated on workstation # [id number]
== END ==
LOC: RAD 09:00
PROVIDERS: ATTEND Internal Medicine Hematology & Oncology
DX: C34.90 Malignant neoplasm of unspecified part of unspecified bronchus or lung (principal); R91.8 Other nonspecific abnormal finding of lung field; R93.89 Abnormal findings on diagnostic imaging of other specified body structures
CPT/HCPCS: 78815; A9552

== ENCOUNTER 2021-06-29 07:52 | Outpatient (CLI) | payer MEDICARE ==
[~2021-06-29] VITALS: Ht 187.9 cm; Wt 113.6 kg
[2021-06-29] VITALS (13 sets, daily range): BP systolic 105–151; BP diastolic 42–78
[2021-06-29] MEDS ORDERED: NS IV 1000 ML 1,000 ML IV STA (08:09)
[2021-06-29] MEDS ORDERED: NAPR220C11 PO (08:11)
[2021-06-29] MEDS ORDERED: GUAI120013 PO (08:11)
[2021-06-29] MEDS ORDERED: LIDOCAINE 1% INJ 20 ML 20 ML VIAL INJ ONE (08:15)
[2021-06-29] MEDS ORDERED: fentaNYL INJ 100 MCG/2 ML AMP IVP ONE (08:15)
[2021-06-29] MEDS ORDERED: MIDAZOLAM 2 MG/2 ML (VERSED) VIAL IVP ONE (08:15)
[2021-06-29 08:27] LABS: HEMATOCRIT 51 % (40-54); HEMOGLOBIN 17.3 g/dL (13.3-17.7); MEAN CORPUSCULAR HEMOGLOBIN 34 pg (25-34); MEAN CORPUSCULAR HGB CONC 34 g/dL (32-36); MEAN CORPUSCULAR VOLUME 99 fL (80-99); MEAN PLATELET VOLUME 9.2 fL (9.0-12.2); PLATELET COUNT 195 10^3/uL (130-400); WHITE BLOOD COUNT 5.5 10^3/uL (4.3-11.0)
[2021-06-29 08:41] LABS: INR 1.1 (0.8-1.4); PROTHROMBIN TIME PATIENT 14.3 SEC (12.2-14.7)
[2021-06-29] MEDS ORDERED: HYDROcodone/APAP 5 MG/325 MG (LORTAB) TAB PO PRN (11:00)
--- NOTE | 2021-06-29 11:47 | Diagnostic Imaging Report ---
INDICATION: Lung cancer. Patient presents for CT-guided biopsy. Patient brought to the CT suite placed on table in the [id number] decubitus position. Axial imaging through the chest was performed to evaluate appropriate entry site. The left upper posterior thorax was prepped and draped in usual sterile fashion. Small amount 1% lidocaine was utilized for local anesthesia. The procedure was performed utilizing conscious sedation with radiology nursing and constant patient monitoring. Patient was given a total of 50 mcg of fentanyl intravenously as well as 1.5 mg of Versed intravenously. Total procedure time was 14 minutes. 18-gauge coaxial Temno needle was advanced and placed within the area of consolidation in the left lung apex. Multiple core biopsies were obtained. A blood patch was injected during needle removal. Followup imaging shows no complicating features. There is no pneumothorax. IMPRESSION: CT-guided left apical lung mass biopsy, utilizing conscious sedation. Pathology results are currently pending. TECHNIQUE: All CT scans use one or more of the following dose optimizing techniques: automated exposure control, MA and/or KvP adjustment based on patient size and exam type or iterative reconstruction. Dictated by: Dictated on workstation # [id number]
--- NOTE | 2021-06-29 13:16 | Diagnostic Imaging Report ---
INDICATION: Left lung biopsy. TIME OF EXAM: 12:52 PM There is no evidence of pneumothorax, status post left lung biopsy. Area of consolidation versus post-therapeutic changes/mass left upper lobe again noted. There is ill-defined density in the right midlung field as well, correlating with findings noted on recent PET/CT study. There is no hemothorax. IMPRESSION: No evidence of pneumothorax, status post left lung biopsy. Dictated by: Dictated on workstation # [id number]
--- NOTE | 2021-06-29 15:19 | Pre-Op Note & Conscious Sedat ---
Pre-Operative Progress Note H&P Reviewed The H&P was reviewed, patient examined and no changes noted. Date H&P Reviewed: Jun 29, 2021 Time H&P Reviewed: 08:00 Pre-Op Diagnosis: Lung mass Conscious Sedation Pre-Proced Time 08:00 ASA Score 2 For ASA 3 and 4: Consider anesthesia and medical clearance. Also, for patients with a history of failed moderate sedation consider anesthesia. Airway Lungs Heart ASA score ASA 1: a normal healthy patient ASA 2: a patient with a mild systemic disease (mid diabetes, controlled hypertension, obesity ASA 3: a patient with a severe systemic disease that limits activity (angina, COPD, prior Myocardial infarction) ASA 4: a patient with an incapacitating disease that is a constant threat to life (CHF, renal failure) ASA 5: a moribund patient not expected to survive 24 hrs. (ruptured aneurysm) ASA 6: a declared brain- patient whose organs are being harvested. For emergent operations, add the letter E after the classification Mallampati Classification Grade 2 Sedation Plan Analgesia, Amnesia, Plan communicated to team members, Discussed options with patient/fam, Discussed risks with patient/fam The patient is an appropriate candidate to undergo the planned procedure, sedation, and anesthesia. The patient immediately re-assessed prior to indication. WHITNEY OLGUIN MD Jun 29, 2021 15:19
== END 2021-06-29 13:28 | disposition home or self-care (01) ==
LOC: SDC 07:52
PROVIDERS: ATTEND Internal Medicine Hematology & Oncology
DX: R91.1 Solitary pulmonary nodule (principal)
CPT/HCPCS: 36415; 71045; 77012; 85027; 85610; 85730; 88305; 99156

== ENCOUNTER → 2021-09-03 | Outpatient (CLI) | payer MEDICARE ==
[~2021-09-03] MED LIST changes: +BARIUM SUSPENSION 2.1% (VANILLA SILQ) 450 ML PO ONE; +CATHETER FLUSH 10 ML SYR IV PRN; +GUAI120013 PO; +HOLD METFORMIN - RECEIVED CONTRAST 20 ML VIAL IV SCH; +IOHEXOL 350 MG/ML 100 ML (OMNIPAQUE 350) VIAL IV ONE; +NAPR220C11 PO; +NS 100 ML (IVPB) BAG IV ONE
[2021-09-03 11:17] LABS: CREATININE SERUM 1.07 MG/DL (0.60-1.30)
--- NOTE | 2021-09-03 14:39 | Diagnostic Imaging Report ---
PROCEDURE: CT chest with contrast, CT abdomen with and without contrast. TECHNIQUE: Precontrast acquisitions were acquired through the abdomen. Multiple contiguous axial images were obtained through the chest and abdomen after administration of intravenous contrast. Auto Exposure Controls were utilized during the CT exam to meet ALARA standards for radiation dose reduction. INDICATION: Follow-up lung cancer. COMPARISON: 06/07/2021. CT chest: The heart size is within normal limits. No pericardial effusion is present. There is no mediastinal, hilar, or axillary lymphadenopathy. Stable consolidative opacities are seen in the left apex with associated architectural distortion. There is increase in size in patchy and consolidative opacity in the anterior aspect of the right upper lobe measuring 5.6 x 2.6 cm. Interval increase in a focal soft tissue nodule along the periphery of the inferior right upper lobe measuring 2.4 x 1.4 cm, previously measuring 2.2 x 0.9 cm. There is suggestion of honeycombing in the lung bases, right greater than left. No central endobronchial obstructing lesions are seen. Centrilobular and paraseptal emphysema is seen throughout the lungs, greatest in the lung apices. No pleural effusion or pneumothorax. No acute osseous abnormalities. CT abdomen: The liver, spleen, pancreas, adrenal glands, and kidneys have a normal appearance. There is no pathologically enlarged mesenteric or retroperitoneal adenopathy. The included bowel loops are nondilated. There is no free fluid or free air. No acute osseous abnormalities. IMPRESSION: 1. Interval increase in patchy and consolidative opacities in the right upper lobe. Given the patient history, these findings are concerning for new site of lung malignancy. Atypical infection may also have this appearance. Recommend continued attention and if indicated PET/CT or biopsy to further evaluate. 2. Interval increase in a nodule in the periphery of the right upper lobe. This too is concerning for a site of malignancy, and continued attention on follow-up is recommended. 3. Stable post-treatment changes in the left apex. 4. No pathologically enlarged lymphadenopathy is seen in the chest. 5. No acute abnormalities in the abdomen. No evidence of metastatic disease. The adrenal glands are unremarkable. Dictated by: Dictated on workstation # [id number]
--- NOTE | 2021-09-03 15:41 | Diagnostic Imaging Report ---
INDICATION: Lung cancer. The patient was administered 26.0 mCi technetium 99m MDP intravenously and whole-body imaging was performed after a 3 hour delay. CORRELATION is made with prior bone scan from 06/07/2021. Normal uptake of activity by the axial and appendicular skeleton is noted. There is continued normal uptake by the kidneys with excretion to the urinary bladder. Bone scan remains unremarkable. No suspicious foci are identified. No definite findings to suggest osseous metastatic disease are identified. IMPRESSION: Stable normal whole-body bone scan without scintigraphic evidence of osseous metastatic disease. Dictated by: Dictated on workstation # [id number]
== END ==
LOC: CARD 12:00
PROVIDERS: ATTEND Internal Medicine Hematology & Oncology
DX: C34.90 Malignant neoplasm of unspecified part of unspecified bronchus or lung (principal); R91.1 Solitary pulmonary nodule
CPT/HCPCS: 71260; 74170; 78306; 82565; 84520; A9503; 36415

== ENCOUNTER 2021-09-04 08:59 | Outpatient (RCR) | payer MEDICARE ==
[2021-06-07 11:20] LABS: BASOPHILS % (AUTO) 1 % (0-10); EOSINOPHILS # (AUTO) 0.2 10^3/uL (0.0-0.3); EOSINOPHILS % (AUTO) 3 % (0-10); HEMATOCRIT 47 % (40-54); HEMOGLOBIN 16.2 g/dL (13.3-17.7); LYMPHOCYTES # (AUTO) 1.1 10^3/uL (1.0-4.0); LYMPHOCYTES % (AUTO) 18 % (12-44); MEAN CORPUSCULAR HEMOGLOBIN 34 pg (25-34); MEAN CORPUSCULAR HGB CONC 35 g/dL (32-36); MEAN CORPUSCULAR VOLUME 98 fL (80-99); MEAN PLATELET VOLUME 8.9 fL (9.0-12.2); MONOCYTES # (AUTO) 0.8 10^3/uL (0.0-1.0); MONOCYTES % (AUTO) 12 % (0-12); NEUTROPHILS # (AUTO) 4.3 10^3/uL (1.8-7.8); NEUTROPHILS % (AUTO) 67 % (42-75); PLATELET COUNT 225 10^3/uL (130-400); WHITE BLOOD COUNT 6.4 10^3/uL (4.3-11.0)
[2021-06-07 11:39] LABS: ALBUMIN 3.9 GM/DL (3.2-4.5); BILIRUBIN,TOTAL 0.5 MG/DL (0.1-1.0); CREATININE SERUM 1.07 MG/DL (0.60-1.30); POTASSIUM 4.8 MMOL/L (3.6-5.0); TOTAL PROTEIN 7.7 GM/DL (6.4-8.2)
[~2021-09-04 08:59] MED LIST changes: -BARIUM SUSPENSION 2.1% (VANILLA SILQ) 450 ML PO ONE; -CATHETER FLUSH 10 ML SYR IV PRN; -HOLD METFORMIN - RECEIVED CONTRAST 20 ML VIAL IV SCH; -IOHEXOL 350 MG/ML 100 ML (OMNIPAQUE 350) VIAL IV ONE; -NS 100 ML (IVPB) BAG IV ONE
[2021-09-04 09:07] LABS: BASOPHILS % (AUTO) 0 % (0-10); EOSINOPHILS # (AUTO) 0.1 10^3/uL (0.0-0.3); EOSINOPHILS % (AUTO) 2 % (0-10); HEMATOCRIT 47 % (40-54); LYMPHOCYTES # (AUTO) 1.2 10^3/uL (1.0-4.0); LYMPHOCYTES % (AUTO) 19 % (12-44); MEAN CORPUSCULAR HEMOGLOBIN 34 pg (25-34); MEAN CORPUSCULAR HGB CONC 34 g/dL (32-36); MEAN CORPUSCULAR VOLUME 99 fL (80-99); MEAN PLATELET VOLUME 9.1 fL (9.0-12.2); MONOCYTES # (AUTO) 0.6 10^3/uL (0.0-1.0); MONOCYTES % (AUTO) 10 % (0-12); NEUTROPHILS # (AUTO) 4.1 10^3/uL (1.8-7.8); NEUTROPHILS % (AUTO) 68 % (42-75); PLATELET COUNT 197 10^3/uL (130-400)
[2021-09-04 09:30] LABS: ALBUMIN 3.8 GM/DL (3.2-4.5); BILIRUBIN,TOTAL 0.8 MG/DL (0.1-1.0); CALCIUM 9.6 MG/DL (8.5-10.1); CREATININE SERUM 1.04 MG/DL (0.60-1.30); TOTAL PROTEIN 7.3 GM/DL (6.4-8.2)
== END 2021-09-05 | disposition home or self-care (01) ==
LOC: ONC 08:59
PROVIDERS: ATTEND Internal Medicine Hematology & Oncology
DX: C34.12 Malignant neoplasm of upper lobe, left bronchus or lung (principal); I10 Essential (primary) hypertension; R91.1 Solitary pulmonary nodule; Z92.21 Personal history of antineoplastic chemotherapy; Z92.3 Personal history of irradiation; Z79.899 Other long term (current) drug therapy
CPT/HCPCS: 80053; 85025; 99213

== ENCOUNTER 2021-09-10 09:04 | Outpatient (CLI) | payer MEDICARE ==
[2021-09-10] VITALS (12 sets, daily range): BP systolic 112–159; BP diastolic 69–100
[~2021-09-10] VITALS: Ht 187 cm; Wt 113.6 kg
[~2021-09-10 09:04] MED LIST changes: +BENA-3 PO; -BENA20TA7 PO; +MONT-40 PO; -MONT10TA32 PO
[2021-09-10 09:43] LABS: BASOPHILS % (AUTO) 1 % (0-10); EOSINOPHILS # (AUTO) 0.1 10^3/uL (0.0-0.3); EOSINOPHILS % (AUTO) 2 % (0-10); HEMATOCRIT 46 % (40-54); HEMOGLOBIN 15.9 g/dL (13.3-17.7); LYMPHOCYTES # (AUTO) 0.9 X 10^3 (1.0-4.0); LYMPHOCYTES % (AUTO) 17 % (12-44); MEAN CORPUSCULAR HEMOGLOBIN 34 pg (25-34); MEAN CORPUSCULAR HGB CONC 34 g/dL (32-36); MEAN CORPUSCULAR VOLUME 99 fL (80-99); MONOCYTES # (AUTO) 0.6 X 10^3 (0.0-1.0); MONOCYTES % (AUTO) 12 % (0-12); NEUTROPHILS # (AUTO) 3.8 X 10^3 (1.8-7.8); NEUTROPHILS % (AUTO) 69 % (42-75); PLATELET COUNT 221 10^3/uL (130-400); WHITE BLOOD COUNT 5.5 10^3/uL (4.3-11.0)
[2021-09-10] MEDS ORDERED: NS IV 1000 ML 1,000 ML IV STA (10:04)
[2021-09-10] MEDS ORDERED: LIDOCAINE 1% INJ 20 ML 20 ML VIAL INJ ONE (10:15)
[2021-09-10] MEDS ORDERED: MIDAZOLAM 2 MG/2 ML (VERSED) VIAL IVP ONE (10:15)
[2021-09-10] MEDS ORDERED: fentaNYL INJ 100 MCG/2 ML AMP IVP ONE (10:15)
[2021-09-10] MEDS ORDERED: LIDOCAINE 1% INJ 20 ML 20 ML VIAL ONE (10:17)
[2021-09-10] MEDS ORDERED: fentaNYL INJ 100 MCG/2 ML AMP ONE (10:17)
[2021-09-10] MEDS ORDERED: NS IV 1000 ML 1,000 ML ONE (10:17)
[2021-09-10] MEDS ORDERED: MIDAZOLAM 2 MG/2 ML (VERSED) VIAL ONE (10:17)
--- NOTE | 2021-09-10 11:29 | Diagnostic Imaging Report ---
INDICATION: Right lung mass. Patient presents for biopsy. TECHNIQUE: All CT scans use one or more of the following dose optimizing techniques: automated exposure control, MA and/or KvP adjustment based on patient size and exam type or iterative reconstruction. FINDINGS: The patient was brought to the CT suite and placed on the table in the supine position. Axial imaging through the chest was performed to evaluate for an appropriate entry site. The right chest was then prepped and draped in the usual sterile fashion. A small amount of 1% lidocaine was utilized for local anesthesia. The study was performed utilizing conscious sedation with Radiology nursing and constant patient monitoring. The patient was given a total of 100 mg of fentanyl intravenously and 1 mg of Versed intravenously. The total procedure time was 14 minutes. An 18-gauge coaxial Temno needle was advanced and placed with its tip within the lesion in the anterior right upper lobe. Multiple core biopsies were obtained. The needle was moved to a slightly different location and additional core biopsies were obtained. The needle was removed during placement of a [employer] tract sealant device. Followup imaging shows a trace right-sided pneumothorax. This will be followed with a chest radiograph in 2 hours. The patient tolerated the procedure well and left the Department in stable condition. IMPRESSION: Successful CT-guided biopsy of the irregular mass-like density in the anterior right upper lobe utilizing conscious sedation. Pathology results are currently pending. Dictated by: Dictated on workstation # [id number]
[2021-09-10] MEDS ORDERED: HYDROcodone/APAP 5 MG/325 MG (LORTAB) TAB PO PRN (11:30)
--- NOTE | 2021-09-10 13:37 | Diagnostic Imaging Report ---
INDICATION: Status post right lung biopsy. TIME OF EXAM: 1:10 PM Correlation is made with prior chest from 06/29/2021. There is a tiny right apical pneumothorax, status post right lung biopsy. There is some density in the right mid lung field which could represent some post procedure hemorrhage. Left lung is stable. IMPRESSION: Tiny right apical pneumothorax, status post right lung biopsy. Dictated by: Dictated on workstation # [id number]
--- NOTE | 2021-09-10 16:07 | Pre-Op Note & Conscious Sedat ---
Pre-Operative Progress Note H&P Reviewed The H&P was reviewed, patient examined and no changes noted. Date H&P Reviewed: Sep 10, 2021 Time H&P Reviewed: 10:00 Pre-Op Diagnosis: lung mass Conscious Sedation Pre-Proced Time 10:00 ASA Score 2 For ASA 3 and 4: Consider anesthesia and medical clearance. Also, for patients with a history of failed moderate sedation consider anesthesia. Airway Lungs Heart ASA score ASA 1: a normal healthy patient ASA 2: a patient with a mild systemic disease (mid diabetes, controlled hypertension, obesity ASA 3: a patient with a severe systemic disease that limits activity (angina, COPD, prior Myocardial infarction) ASA 4: a patient with an incapacitating disease that is a constant threat to life (CHF, renal failure) ASA 5: a moribund patient not expected to survive 24 hrs. (ruptured aneurysm) ASA 6: a declared brain- patient whose organs are being harvested. For emergent operations, add the letter E after the classification Mallampati Classification Grade 2 Sedation Plan Analgesia, Amnesia, Plan communicated to team members, Discussed options with patient/fam, Discussed risks with patient/fam The patient is an appropriate candidate to undergo the planned procedure, sedation, and anesthesia. The patient immediately re-assessed prior to indication. WHITNEY OLGUIN MD Sep 10, 2021 16:07
== END 2021-09-10 13:55 ==
LOC: SDC 09:04
PROVIDERS: ATTEND Internal Medicine Hematology & Oncology
DX: R91.8 Other nonspecific abnormal finding of lung field (principal)
CPT/HCPCS: 36415; 71045; 77012; 81210; 85025; 85610; 85730; 88305; 88344; 88360; 99156

== ENCOUNTER 2021-10-11 10:25 | Outpatient (RCR) | payer MEDICARE | END 2021-10-19 | disposition home or self-care (01) | LOC: ONC 10:25 | PROVIDERS: ATTEND Internal Medicine Hematology & Oncology | DX: C34.12 Malignant neoplasm of upper lobe, left bronchus or lung (principal); I10 Essential (primary) hypertension; E66.9 Obesity, unspecified; R91.1 Solitary pulmonary nodule; Z92.21 Personal history of antineoplastic chemotherapy; Z92.3 Personal history of irradiation; Z79.899 Other long term (current) drug therapy; Z87.891 Personal history of nicotine dependence | CPT/HCPCS: 99213; 99214 ==

== ENCOUNTER 2022-03-07 11:30 | Emergency (ER) | payer MEDICARE ==
[~2022-03-07] VITALS: Ht 188 cm; Wt 111.1 kg
[2022-03-07 12:08] LABS: BASOPHILS % (AUTO) 1 % (0-10); EOSINOPHILS % (AUTO) 1 % (0-10); HEMATOCRIT 40 % (40-54); HEMOGLOBIN 13.5 g/dL (13.3-17.7); LYMPHOCYTES # (AUTO) 0.4 10^3/uL (1.0-4.0); LYMPHOCYTES % (AUTO) 12 % (12-44); MEAN CORPUSCULAR HEMOGLOBIN 37 pg (25-34); MEAN CORPUSCULAR HGB CONC 34 g/dL (32-36); MEAN CORPUSCULAR VOLUME 108 fL (80-99); MEAN PLATELET VOLUME 8.7 fL (9.0-12.2); MONOCYTES # (AUTO) 0.3 10^3/uL (0.0-1.0); MONOCYTES % (AUTO) 7 % (0-12); NEUTROPHILS # (AUTO) 2.9 10^3/uL (1.8-7.8); NEUTROPHILS % (AUTO) 80 % (42-75); PLATELET COUNT 148 10^3/uL (130-400); WHITE BLOOD COUNT 3.6 10^3/uL (4.3-11.0)
[2022-03-07 12:10] LABS: POTASSIUM 4.2 MMOL/L (3.6-5.0)
[2022-03-07 12:11] LABS: CALCIUM 9.4 MG/DL (8.5-10.1)
[2022-03-07 12:13] LABS: TOTAL PROTEIN 7.4 GM/DL (6.4-8.2)
[2022-03-07 12:14] LABS: BILIRUBIN,TOTAL 0.5 MG/DL (0.1-1.0)
[2022-03-07 12:15] LABS: FIBRIN DEGRADATION PRODUCTS 1.36 UG/ML (0.00-0.49); INR 1.1 (0.8-1.4); PROTHROMBIN TIME PATIENT 14.8 SEC (12.2-14.7)
[2022-03-07 12:16] LABS: CREATININE SERUM 1.04 MG/DL (0.60-1.30)
--- NOTE | 2022-03-07 12:50 | Diagnostic Imaging Report ---
INDICATION: Hypoxia Frontal chest obtained at 12:39 p.m. and compared to 09/10/2021. Heart is mildly enlarged. Patchy infiltrate seen in both lungs appears chronic compared to the previous study. There is chronic left apical pleural thickening with scarring or mass effect appearing similar to the prior study. IMPRESSION: Chronic infiltrates are seen in both lungs with similar appearance to the prior study. Chronic left apical pleural thickening and left upper lobe scarring and/or mass effect appears similar to the prior study. Dictated by: Dictated on workstation # [id number]
[2022-03-07 13:00] LABS: BILIRUBIN,URINE NEGATIVE (NEGATIVE); CLARITY,URINE CLEAR; COLOR,URINE YELLOW; GLUCOSE, URINE (UA) NEGATIVE (NEGATIVE); KETONES,URINE NEGATIVE (NEGATIVE); LEUKOCYTE ESTERASE ,URINE NEGATIVE (NEGATIVE); NITRITE,URINE NEGATIVE (NEGATIVE); PROTEIN,URINE NEGATIVE (NEGATIVE)
[2022-03-07] MEDS ORDERED: NS IV 1000 ML 1,000 ML IV SCH (13:00)
[2022-03-07 13:09] LABS: BACTERIA,URINE NEGATIVE /HPF; SQUAMOUS EPITHELIAL CELL,UR 0-2 /HPF; WBC,URINE 0-2 /HPF
[2022-03-07] MEDS ORDERED: IOHEXOL 350 MG/ML 100 ML (OMNIPAQUE 350) VIAL IV ONE (13:15)
[2022-03-07] MEDS ORDERED: NS 100 ML (IVPB) BAG IV ONE (13:15)
--- NOTE | 2022-03-07 13:52 | Diagnostic Imaging Report ---
EXAMINATION: CT angiography of the chest. TECHNIQUE: Contrast enhanced thin section helical images were obtained through the chest with intravenous contrast timed for the optimal opacification of the arterial structures per CTA protocol. Post-processing, reconstructions and interpretation of angiographic images of the vessels was performed. 3D MIP reconstructions were performed and reviewed. All CT scans use one or more of the following dose optimizing techniques: automated exposure control, MA and/or KvP adjustment based on a patient size and exam type, or iterative reconstruction. HISTORY: Shortness of breath and elevated D-dimer COMPARISON: 09/03/2021 FINDINGS: There is no pulmonary embolism. There is no pneumonia. No pleural effusion. No pneumothorax. There is unchanged left-sided paramediastinal fibrosis, traction bronchiectasis and architectural distortion consistent with treated lung cancer. There is an unchanged area of nodular consolidation in the right upper lobe measuring 3.4 x 1.5 cm, previously 3.4 x 1.5 cm. Lungs are moderately emphysematous and there is mild superimposed edema with septal line thickening. Previously seen right upper lobe nodule laterally is slightly decreased in size measuring 1.8 x 0.9 cm, previously 2.2 x 1.2 cm. The lungs are severely emphysematous. A nodule in the right upper lobe associated with the fissure measuring 1.5 x 1.0 cm, previously 0.9 x 0.7 cm. This is best seen on the sagittal series, image 58. There is no axillary or supraclavicular lymphadenopathy. There is no mediastinal lymphadenopathy. Heart size is normal. There are mild coronary artery calcifications. No pericardial effusion. Aorta is normal in caliber. Limited views of the upper abdomen are unremarkable. There are no suspicious osseus lesions. IMPRESSION: 1. No pulmonary embolism. 2. Increase in size of a nodule associated with the right minor fissure concerning for developing malignancy. 3. Decrease in size of a second right upper lobe nodule and unchanged consolidative opacity in the right upper lobe which may represent radiation fibrosis. Dictated by: Dictated on workstation # [id number]
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
[2022-03-07] MEDS ORDERED: PRD20T PO (14:28)
[2022-03-07] MEDS ORDERED: methylPREDNISolone 125 MG (Solu-MEDROL) VIAL IVP ONE (14:30)
[2022-03-07 14:57] VITALS: BP 119/64
== END 2022-03-07 14:58 | disposition home or self-care (01) ==
LOC: EDUNIT# 11:30 → ER 11:31
DX: J44.1 Chronic obstructive pulmonary disease with (acute) exacerbation (principal); C34.11 Malignant neoplasm of upper lobe, right bronchus or lung; F17.210 Nicotine dependence, cigarettes, uncomplicated; Z20.822 Contact with and (suspected) exposure to COVID-19; Z99.81 Dependence on supplemental oxygen; Z79.899 Other long term (current) drug therapy
CPT/HCPCS: 36415; 71045; 71275; 80053; 81000; 83605; 83880; 84145; 85025; 85379; 85610; 85730; 86141; 87040; 87088; 87636

== ENCOUNTER → 2022-05-29 | Outpatient (CLI) | payer MEDICARE ==
[~2022-05-29] MED LIST changes: +PRD20T PO
--- NOTE | 2022-05-29 14:30 | Diagnostic Imaging Report ---
EXAMINATION: Chest 2 view HISTORY: SOB, INCREASE OXYGEN DEMAND COMPARISON: 03/07/2022 FINDINGS: Heart size and pulmonary vasculature are normal. There are patchy interstitial airspace opacities within the lungs, greatest within the right lung. Coarse opacities are seen within the left upper lobe. These are mildly increased from 03/07/2022. The osseous structures are intact. IMPRESSION: 1. Mildly increased patchy interstitial airspace opacities throughout both lungs. This likely represents a combination of background chronic lung disease and likely superimposed atelectasis or pneumonia. Dictated by: Dictated on workstation # [id number]
== END ==
LOC: RAD 13:59
PROVIDERS: ATTEND Nurse Practitioner Family
DX: R91.8 Other nonspecific abnormal finding of lung field (principal)
CPT/HCPCS: 71046

== ENCOUNTER → 2022-05-30 | Outpatient (CLI) | payer MEDICARE | LOC: LAB 12:50 | PROVIDERS: ATTEND Family Medicine | DX: R06.02 Shortness of breath (principal) | CPT/HCPCS: 36415; 85379 ==

== ENCOUNTER → 2022-05-31 | Outpatient (CLI) | payer MEDICARE ==
[~2022-05-31] MED LIST changes: +CATHETER FLUSH 10 ML SYR IV PRN; +HOLD METFORMIN - RECEIVED CONTRAST 20 ML VIAL IV SCH; +IOHEXOL 350 MG/ML 100 ML (OMNIPAQUE 350) VIAL IV ONE; +NS 100 ML (IVPB) BAG IV ONE
[2022-05-31 11:00] LABS: CREATININE SERUM 1.05 MG/DL (0.60-1.30)
--- NOTE | 2022-05-31 11:45 | Diagnostic Imaging Report ---
EXAMINATION: CT angiography of the chest. TECHNIQUE: Contrast enhanced thin section helical images were obtained through the chest with intravenous contrast timed for the optimal opacification of the arterial structures per CTA protocol. Post-processing, reconstructions and interpretation of angiographic images of the vessels was performed. 3D MIP reconstructions were performed and reviewed. All CT scans use one or more of the following dose optimizing techniques: automated exposure control, MA and/or KvP adjustment based on a patient size and exam type, or iterative reconstruction. HISTORY: Elevated D-dimer, lung cancer, shortness of breath. COMPARISON: 03/07/2022 FINDINGS: There is no pulmonary embolism. There is a moderate right pleural effusion. Right upper lobe nodule measures 3.8 x 2.5 cm, previously 3.3 x 2.1 cm. Another right upper lobe nodule measures 2.0 x 2.2 cm, previously 1.0 x 1.3 cm. There is bronchial wall thickening in the right lower lobe. There is right base atelectasis. Lungs are emphysematous. There is fibrosis in the left apex. There is no axillary or supraclavicular lymphadenopathy. There is no mediastinal lymphadenopathy. Heart size is normal. There are mild coronary artery calcifications. No pericardial effusion. Aorta is normal in caliber. Limited views of the upper abdomen show cirrhosis of the liver. There are no suspicious osseous lesions. IMPRESSION: 1. No pulmonary embolism. 2. New moderate right pleural effusion and increasing size of pulmonary nodules in the right lung. Dictated by: Dictated on workstation # [id number]
== END ==
LOC: RAD 10:27
PROVIDERS: ATTEND Internal Medicine
DX: J90 Pleural effusion, not elsewhere classified (principal); R91.8 Other nonspecific abnormal finding of lung field; R79.1 Abnormal coagulation profile; Z85.118 Personal history of other malignant neoplasm of bronchus and lung
CPT/HCPCS: 36415; 71275; 82565; 84520

== ENCOUNTER → 2022-06-06 | Outpatient (CLI) | payer MEDICARE ==
[~2022-06-06] VITALS: Ht 191.2 cm; Wt 111.1 kg
[~2022-06-06] MED LIST changes: -CATHETER FLUSH 10 ML SYR IV PRN; -HOLD METFORMIN - RECEIVED CONTRAST 20 ML VIAL IV SCH; -IOHEXOL 350 MG/ML 100 ML (OMNIPAQUE 350) VIAL IV ONE; -NS 100 ML (IVPB) BAG IV ONE
[2022-06-06 13:38] LABS: INR 1.1 (0.8-1.4); PROTHROMBIN TIME PATIENT 14.1 SEC (12.2-14.7)
[2022-06-06 14:47] LABS: BODY FLUID RBC COUNT 0.005 10^6/uL; BODY FLUID WBC TOTAL COUNT 0.912 10^3/uL
--- NOTE | 2022-06-06 14:49 | Diagnostic Imaging Report ---
EXAMINATION: PA chest at 1417 hours. INDICATION: Post right thoracentesis. FINDINGS: Reportedly, in the interval since the prior exam of 03/07/2022, the patient has undergone thoracentesis on the right. There is only a very small amount of fluid still present in the right lung base. There is no sign of a pneumothorax on the right. The chronic densities involving the right mid lung and right lung base seen previously are again evident. There has been some increase in the density in the right lower lobe, and there may be an element of pneumonia/atelectasis now present in the right lung base. The scar formation in the left suprahilar region and left apex seen on the prior study is again evident. The heart is stable in size. IMPRESSION: 1. There is only a very small amount of fluid still present in the right lung base following thoracentesis. There is no evidence for pneumothorax on the right. 2. The area of increased density in the right lower lobe may be related to acute pneumonia/atelectasis superimposed on the underlying chronic pulmonary changes. Clinical follow-up is recommended. 3. The overall appearance of the chest is otherwise stable. Dictated by: Dictated on workstation # [id number]
[2022-06-06 14:50] LABS: BODY FLUID SOURCE PLEURAL
[2022-06-06 14:51] LABS: BODY FLUID APPEARENCE SLT CLDY; BODY FLUID COLOR YELLOW
[2022-06-06 15:13] LABS: LDH,BODY FLUID 153 U/L
--- NOTE | 2022-06-07 09:35 | Diagnostic Imaging Report ---
INDICATION: Right pleural effusion. PROCEDURE: The patient presents for ultrasound-guided thoracentesis. The patient was brought to the procedure room and placement on the bed in a sitting upright position. Ultrasound imaging of the right posterior thorax was performed to evaluate appropriate entry site. Images demonstrate a large right pleural effusion. The posterior thorax was prepped and draped in the usual sterile fashion. Small amount of 1% lidocaine was utilized for local anesthesia. Thoracentesis catheter was advanced into the posterior pleural space. 1800 mL of fluid was removed. The catheter was removed and hemostasis was obtained using manual compression. The patient tolerated the procedure well and was sent for a postprocedure chest x-ray in satisfactory condition. IMPRESSION: Successful ultrasound-guided thoracentesis on the right obtaining 1800 mL of fluid. Dictated by: Dictated on workstation # [id number]
== END ==
LOC: RAD 13:30
PROVIDERS: ATTEND Internal Medicine
DX: J90 Pleural effusion, not elsewhere classified (principal)
CPT/HCPCS: 32555; 71045; A7048; 36415; 83615; 85610; 89051

== ENCOUNTER → 2022-08-16 | Outpatient (CLI) | payer MEDICARE ==
--- NOTE | 2022-08-16 18:33 | Diagnostic Imaging Report ---
INDICATION: Left pleural effusion follow-up. History of lung carcinoma. EXAMINATION: Two view chest, 08/16/2022. COMPARISON: 06/06/2022. FINDINGS: Diffuse coarsened interstitial markings and increased airspace opacity seen throughout both lungs, predominantly within the right mid and lower lung and in the left upper lobe. There is a chest tube at the right base. There is pleural thickening in both apical regions. Lucencies in the left apex stable. The left hilum is elevated consistent with postoperative findings. The heart is stable in appearance. Pulmonary vasculature appears somewhat congested. There is no pneumothorax. IMPRESSION: Chronic and postoperative changes, as above, with suspected infiltrates throughout the right mid and lower lung. Dictated by: Dictated on workstation # [id number]
== END ==
LOC: RAD 13:46
PROVIDERS: ATTEND Internal Medicine
DX: J90 Pleural effusion, not elsewhere classified (principal); Z85.118 Personal history of other malignant neoplasm of bronchus and lung
CPT/HCPCS: 71046